=== PATIENT | male | born 1965 | race Caucasian/White ===

== ENCOUNTER 2020-07-14 04:35 | Emergency (ER) | payer OTHER, SELFPAY ==
--- NOTE | ~2020-07-14 | CT_ITS ---
EXAMINATION: CTA abdomen pelvis DATE: 07/14/2020 05:56 INDICATION: Left abdominal pain radiating to the back. TECHNIQUE: Computed tomographic angiography (CTA) of the abdomen and pelvis was performed with 100 mL Omnipaque-350 intravenous contrast. Automated exposure control and iterative reconstruction techniqu e were employed. The dose-length product was 1368.90 mGy-cm. Maximum intensity projection 3D-reconstr uctions of the aorta and other arteries were constructed by the technologist on a separate workstatio n. COMPARISON: CT abdomen and pelvis 04/06/2019, 08/08/2018 FINDINGS: The visualized portions of the lung bases demonstrate mild atelectasis. No pleural effusion . The heart size is normal. No pericardial effusion. Calcifications in the liver and spleen are consi stent with old granulomatous disease. The gallbladder is distended. The pancreas and adrenal glands a re normal. There is a small focal area of cortical thinning in right kidney. There are cysts in the k idneys measuring up to 9 mm on the right. The prostate is mildly enlarged. There is diverticulosis of the colon without evidence of diverticulitis. There are no dilated loops of bowel. Again seen is a s mall area of old fat necrosis adjacent to the splenic flexure of the colon. The appendix is normal. T here are no pathologically enlarged lymph nodes. There is no free intraperitoneal fluid. There is mil d aortic atherosclerosis. No aneurysm or dissection. There is moderate stenosis of celiac axis second abdi to median arcuate ligament compression. There is no significant stenosis of superior mesenteric a rtery or inferior mesenteric artery or the renal arteries. There is mild thoracolumbar spondylosis. IMPRESSION: 1. Mild aortic atherosclerosis. No aneurysm or dissection. 2. Gallbladder distention again seen, which may be secondary to fasting. Reviewed, dictated and finalized at location B.
[2020-07-14 04:31] VITALS: BP 120/75; PULSE 72; RESP 18; TEMP 36.7; O2SAT 96
[2020-07-14 04:45] LABS: Basophils Absolute Auto 0.1 K/mm3 (0.0-0.1); Basophils Percent Auto 1.1 % (0.2-1.2); Eosinophils Absolute Auto 0.3 K/mm3 (0-0.3); Eosinophils Percent Auto 5.3 % (0-4.4); Hematocrit 44.2 % (42.0-52.0); Hemoglobin 15.1 g/dL (14.0-18.0); Immature Granulocyte Absolute 0.02 K/mm3 (0.00-0.031); Immature Granulocyte Percent A 0.4 % (0-0.5); Lymphocytes Absolute Auto 1.32 K/mm3 (0.9-3.2); Lymphocytes Percent Auto 23.3 % (18.3-44.2); Mean Corpuscular HGB Conc 34.2 g/dl (32-36); Mean Corpuscular Hemoglobin 30.4 pg (26-34); Mean Corpuscular Volume 89.1 fl (80-100); Mean Platelet Volume 10.1 fl (7.4-10.4); Monocytes Absolute Auto 0.5 K/mm3 (0.1-0.6); Neutrophils Absolute Auto 3.5 K/mm3 (1.3-6.7); Neutrophils Percent Auto 60.9 % (45.5-73.1); Platelet Count Result 180 k/mm3 (150-375); Red Blood Count 4.96 M/mm3 (4.6-6.20); White Blood Count 5.7 K/mm3 (4.5-10.0)
[2020-07-14 04:58] LABS: Anion Gap 6 mmol/L (8-16); Blood Urea Nitrogen 22 mg/dL (9-20); Calcium 9.2 mg/dL (8.4-10.2); Carbon Dioxide 25 mmol/L (22-30); Chloride 105 mmol/L (98-107); Estimated CRCL calculation 68 ml/min; Estimated Glomerular Filt Rate 57; Glucose 152 mg/dL (75-110); Sodium 136 mmol/L (137-145)
[2020-07-14 05:22] LABS: Add Urine Microscopic? NO; Appearance Urine Clear (Clear); Bilirubin Urine Negative (Negative); Blood Urine Negative (Negative); Color Urine Yellow (Yellow); Glucose Urine UA Negative (Negative); Ketones Urine Negative (Negative); Leukocyte Esterase Ur Negative LEU/UL (Negative); Nitrate Urine Negative (Negative); Protein Urine Negative (Negative); Urobilinogen Urine Negative mg/dL (<2.0)
[2020-07-14 05:27] LABS: Specific Grav Ur 1.031 (1.001-1.035)
[2020-07-14 05:30] LABS: Lipase 510 U/L (23-300)
[2020-07-14 05:31] LABS: Lactic Acid Reflex 1.2 mmol/L (0.7-2.1)
--- NOTE | 2020-07-14 06:04 | ED.ABDPAIN ---
HPI - Abdominal Pain General Chief Complaint: Abdominal Pain Stated Complaint: abd pain Time Seen by Provider: 07/14/20 04:43 History of Present Illness HPI narrative: Patient is a 55-year-old male who presents ER with sudden onset abdominal pain. Began yesterday evening is persisted through this morning. Improved significantly after receiving fentanyl by EMS. Reports this occurs to him about 3-4 times a year. It is usually followed by bloody bowel movement. He has not had a bloody bowel movement this time. He has had colonoscopies without discovery of what is causing these issues. No association with eating or drinking. Pain is left-sided and radiates to his back. Does not feel similar to previous kidney stones. Related Data Allergies Allergy/AdvReac Type Severity Reaction Status Date / Time tramadol Allergy Intermediate Palpitation Verified 07/14/20 04:37 s celecoxib AdvReac Intermediate Hallucinati Verified 07/14/20 04:37 ng lisinopril AdvReac Intermediate Hallucinati Verified 07/14/20 04:37 ng Review of Systems Review of Systems: All systems reviewed & are unremarkable except as noted in HPI and below Constitutional: Constitutional: Denies chills, Denies fever(s) and Denies weakness Cardiovascular: Cardiovascular: Denies chest pain and Denies radiating jaw, neck or arm pain Gastrointestinal: Gastrointestinal: Reports abdominal pain, Denies constipation, Denies diarrhea, Denies nausea and Denies vomiting Genitourinary: Genitourinary: Denies dysuria and Denies urinary frequency [facility] Past Medical History Medical History (Updated 07/14/20 @ 06:55 by Heriberto Shrestha MD) Chronic headaches HTN (hypertension) Kidney stones, calcium oxalate Neuroma digital nerve Numbness and tingling in both hands (~1998) Obesity GABRIELA on CPAP Thoracic spondylosis (~2017) Surgical History Surgical History Carpal tunnel syndrome of left wrist Carpal tunnel syndrome of right wrist Social History Social History Smoking status: Former smoker Smoking end date: 11/21/12 Alcohol intake: never Substance use: unknown 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 HEAD: Normocephalic, atraumatic. ENT: Mucous membranes moist. CHEST: Clear to auscultation. No respiratory distress. HEART: Regular rate and rhythm. Normal peripheral pulses. ABDOMEN: Soft, mildly tender to left upper quadrant of abdomen without guarding, nondistended, normal active bowel sounds. EXTREMITIES: Normal range of motion. No edema. SKIN: Warm, dry, no rash. NEURO: Alert and oriented x3. Course Course Emergency Course: Patient informed of results. Pain improving. Will send home with some Percocet as well. Vital Signs Vital signs: Vital Signs Temperature 98.0 F 07/14/20 04:31 Pulse Rate 72 07/14/20 04:31 Respiratory Rate 18 07/14/20 04:31 Blood Pressure 120/75 07/14/20 04:31 Pulse Oximetry 96 07/14/20 04:31 Temperature 98.0 F 07/14/20 04:31 Pulse Rate 72 07/14/20 04:31 Respiratory Rate 18 07/14/20 04:31 Blood Pressure 120/75 07/14/20 04:31 Pulse Oximetry 96 07/14/20 04:31 MDM - Abdominal Pain Lab Data Result diagrams: 07/14/20 04:40 07/14/20 04:40 Labs: Lab Results 07/14/20 07/14/20 07/14/20 Range/Units 04:40 04:40 05:02 WBC 5.7 (4.5-10.0) K/mm3 RBC 4.96 (4.6-6.20) M/mm3 Hgb 15.1 (14.0-18.0) g/dL Hct 44.2 (42.0-52.0) % MCV 89.1 (80-100) fl MCH 30.4 (26-34) pg MCHC 34.2 (32-36) g/dl RDW 12.0 (11.5-14.5) % Plt Count 180 (150-375) k/mm3 MPV 10.1 (7.4-10.4) fl Immature Gran % (Auto) 0
[2020-07-14 07:06] VITALS: BP 108/61; PULSE 59; RESP 18; O2SAT 96
== END 2020-07-14 07:07 | disposition home or self-care (01) ==
PROVIDERS: Emergency Provider Emergency Medicine; PCP Family Medicine
DX: K63.89 Other specified diseases of intestine (principal); I10 Essential (primary) hypertension; Z87.442 Personal history of urinary calculi; G47.33 Obstructive sleep apnea (adult) (pediatric); E66.9 Obesity, unspecified; Z68.39 Body mass index [BMI] 39.0-39.9, adult; Z87.891 Personal history of nicotine dependence
CPT/HCPCS: 36415; 74174; 80048; 81003; 83605; 83690; 85025; 99284; Q9967

== ENCOUNTER 2020-09-12 14:37 | Outpatient (CLI) | payer OTHER, SELFPAY ==
--- NOTE | 2020-09-12 14:38 | ECG_ITS ---
Measurements Intervals [place] Rate: 63 P: 37 MA: 156 QRS: -23 QRSD: 98 T: 3 QT: 397 QTc: 407 Interpretive Statements SINUS RHYTHM INFERIOR INFARCT, AGE INDETERMINATE BASELINE WANDER- V4 ABNORMAL ECG Electronically Signed On 09-12-2020 14:56:23 CDT by Terence Hernandez D.O.
== END 2020-09-12 14:38 | disposition home or self-care (01) ==
PROVIDERS: PCP Family Medicine; Visit Provider Orthopaedic Surgery
DX: Z01.818 Encounter for other preprocedural examination (principal); I10 Essential (primary) hypertension; R94.31 Abnormal electrocardiogram [ECG] [EKG]
CPT/HCPCS: 93005

== ENCOUNTER 2020-09-16 01:07 | Outpatient (CLI) | payer OTHER, SELFPAY ==
[2020-09-16 19:05] LABS: SARS-CoV-2 RNA PCR Negative
== END 2020-09-16 01:08 | disposition home or self-care (01) ==
LOC: ANHCOVIDDT 01:07
PROVIDERS: PCP Family Medicine; Visit Provider Orthopaedic Surgery
DX: Z01.812 Encounter for preprocedural laboratory examination (principal); Z20.828 Contact with and (suspected) exposure to other viral communicable diseases
CPT/HCPCS: 87635; C9803; U0003

== ENCOUNTER 2020-09-18 00:52 | Day surgery (SDC) | payer OTHER, SELFPAY ==
[2020-09-05 10:19] VITALS: BMI 36.5
--- NOTE | 2020-09-17 12:45 | PM.IMHP ---
H&P: HPI History of Present Illness Date/Time: 09/17/20 12:45 Chief complaint: Right foot third IMS neuroma Narrative: Terry Christianson is a 55 year old male with right foot pain for the past year. Pain in the forefoot radiating into the 3rd and 4th toes. Worse with activity, better when he is off of it. He has had previous injections as well as activity modification and shoe wear modifications. He presents now for operative treatment. Review of Systems Constitutional: Constitutional: Denies fever(s) Eyes: Eyes: Denies blurry vision ENT: Reports Normal hearing present Cardiovascular: Cardiovascular: Denies chest pain and Denies dyspnea Respiratory: Respiratory: Denies dyspnea and Denies wheezing Gastrointestinal: Gastrointestinal: Denies abdominal pain Genitourinary: Genitourinary: Denies urinary urgency Musculoskeletal: Musculoskeletal: Reports as per HPI and Denies numbness Integumentary/Breasts: Skin/Breast: Denies changing lesions and Denies sores Neurologic: Reports Normal hearing present, Denies behavioral changes, Denies confusion, Denies numbness and Denies convulsions Psychiatric: Psychiatric: Denies behavioral changes, Denies confusion and Denies hallucinations Endocrine: Endocrine: Denies heat intolerance Hematologic/Lymphatic: Hematologic/Lymphatic: Denies easy bleeding Allergic/Immunologic: Allergic/Immunologic: Denies wheezing PMFSH Past Medical History Medical History Chronic headaches HTN (hypertension) Kidney stones, calcium oxalate Neuroma digital nerve Numbness and tingling in both hands (~1998) Obesity GABRIELA on CPAP Thoracic spondylosis (~2017) Surgical History Surgical History Carpal tunnel syndrome of left wrist Carpal tunnel syndrome of right wrist H/O cystoscopy with a placement of a stent H/O hernia repair umbilical and groin H/O right knee surgery Family History Family History Father Hypertension Family history of diabetes mellitus in first degree relative Family history of coronary artery disease Family history of elevated blood lipids Family history of congestive heart failure Diabetes mellitus Mother Cerebrovascular accident Family history of pancreatic cancer Family history of primary malignant neoplasm of liver Family history of thyroid disease Sibling Family history of thyroid disease Family history of elevated blood lipids Family history of diabetes mellitus in first degree relative Sibling Diabetes mellitus Sibling Diabetes mellitus Other Family history of alcoholism Family history of arthritis Social History Social History Smoking packs per day: 1 Smoking cigarettes per day: 20.0 Years smoked: 20 Smoking pack-years: 20.00 Smoking status: Former smoker Tobacco type: cigarettes Smoking end date: 11/21/12 Additional smoking assessment comments: QUIT 15 YEARS AGO Alcohol intake: never Substance use: unknown 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 Gender identity (if verbalized by the patient): Male Spiritual care concerns: No Meds Home Medications and Allergies Home Medications Medication Instructions Recorded Confirmed Type trazodone 100 mg tablet 200 mg PO HS #180 tablet 05/21/20 09/05/20 Rx nebivolol 5 mg tablet 5 mg PO DAILY #120 tablet 08/05/20 09/05/20 Rx dextroamphetamine-amphetamine 10 10 mg PO QNOON #30 tablet 09/01/20 09/05/20 Rx mg tablet dextroamphetamine-amphetamine ER 30 mg PO QAM #30 cap 09/01/20 09/05/20 Rx 30 mg 24hr capsule,extend release Vitamin B-12 1 tablet PO DAILY 09/05/20 09/05/20 History Vitamin B-6 1 tablet PO DAILY 09/05/20 09/05/20 History Vitamin D3 1 tablet PO DAILY 09/05/20 09/05/20 History vitamin A 1 tablet PO DAILY 09/05/20
[2020-09-18] VITALS (9 sets, daily range): BP systolic 96–126; BP diastolic 60–82; PULSE 48–79; RESP 14–18; TEMP 36.4–36.7; O2SAT 95–100
[2020-09-18] MEDS: LACTATED RINGERS 1,000 ML 30 ML IV CONT ×2 (06:50→08:23)
--- NOTE | 2020-09-18 06:51 | WPDANESEPPF ---
Anes - Initial Pre Proc Eval Procedure: Operation Date: 09/18/20 07:30 Proposed Procedures p Excision Neuroma Right Foot Third Intermetatarsal Space - Denis Beasley MD Date/Time: 09/18/20 06:51 Surgeon: Denis Beasley MD Pre Op Diagnosis: Right foot third IMS neuroma Patient Data Age: 55 Gender: M Height: 5 ft 8 in Weight: 108.86 kg Allergies Allergy/AdvReac Type Severity Reaction Status Date / Time tramadol Allergy Intermediate Palpitation Verified 09/05/20 10:20 s celecoxib AdvReac Intermediate Hallucinati Verified 09/05/20 10:20 ng lisinopril AdvReac Intermediate Hallucinati Verified 09/05/20 10:20 ng Home Medications Medication Instructions Recorded Confirmed Type trazodone 100 mg tablet 200 mg PO HS #180 tablet 05/21/20 09/05/20 Rx nebivolol 5 mg tablet 5 mg PO DAILY #120 tablet 08/05/20 09/05/20 Rx dextroamphetamine-amphetamine 10 10 mg PO QNOON #30 tablet 09/01/20 09/05/20 Rx mg tablet dextroamphetamine-amphetamine ER 30 mg PO QAM #30 cap 09/01/20 09/05/20 Rx 30 mg 24hr capsule,extend release Vitamin B-12 1 tablet PO DAILY 09/05/20 09/05/20 History Vitamin B-6 1 tablet PO DAILY 09/05/20 09/05/20 History Vitamin D3 1 tablet PO DAILY 09/05/20 09/05/20 History vitamin A 1 tablet PO DAILY 09/05/20 09/05/20 History zinc 1 tablet PO DAILY 09/05/20 09/05/20 History Patient hx anesthesia problems: none Family hx anesthesia problems: none [facility] Past Medical History Medical History Chronic headaches HTN (hypertension) Kidney stones, calcium oxalate Neuroma digital nerve Numbness and tingling in both hands (~1998) Obesity GABRIELA on CPAP Thoracic spondylosis (~2017) Surgical History Surgical History Carpal tunnel syndrome of left wrist Carpal tunnel syndrome of right wrist H/O cystoscopy with a placement of a stent H/O hernia repair umbilical and groin H/O right knee surgery Family History Family History Father Hypertension Family history of diabetes mellitus in first degree relative Family history of coronary artery disease Family history of elevated blood lipids Family history of congestive heart failure Diabetes mellitus Mother Cerebrovascular accident Family history of pancreatic cancer Family history of primary malignant neoplasm of liver Family history of thyroid disease Sibling Family history of thyroid disease Family history of elevated blood lipids Family history of diabetes mellitus in first degree relative Sibling Diabetes mellitus Sibling Diabetes mellitus Other Family history of alcoholism Family history of arthritis Social History Social History Smoking packs per day: 1 Smoking cigarettes per day: 20.0 Years smoked: 20 Smoking pack-years: 20.00 Smoking status: Former smoker Tobacco type: cigarettes Smoking end date: 11/21/12 Additional smoking assessment comments: QUIT 15 YEARS AGO Alcohol intake: never Substance use: unknown 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 Questions were solicited and answers provided to the satisfaction of the patient/family/POA.
--- NOTE | 2020-09-18 06:59 | WPDHPUPDATE1 ---
History and Physical Update Update Date/Time: 09/18/20 06:59 History and Physical has been reviewed, including an updated exam of the patient. There are NO changes in the patient's condition. Covid test negative. Risks, benefits, and alternatives have been discussed and questions answered. Patient agrees to proceed with procedure.
[2020-09-18] MEDS: ACETAMINOPHEN 500 MG TABLET 1000 MG PO (07:00)
[2020-09-18] MEDS: ceFAZolin 2 GM/D5W 50 ML 2 GM/50 ML BAG IVPB (07:28)
[2020-09-18] MEDS: BUPIVACAINE HCL 0.5% PF 30 ML VIAL INFILTRATE (07:56)
--- NOTE | 2020-09-18 08:47 | P.OP_ITS ---
Procedure Note - Detailed Date of procedure: 09/18/20 Pre-op diagnosis: Right foot third IMS neuroma Post-op diagnosis: same Procedure performed: Excision of right foot 3rd intermetatarsal space neuroma Description of procedure: Indications: Patient is a 55-year-old gentleman with right forefoot pain. 3rd intermetatarsal space neuroma confirm on exam and with cortisone injection. Patient has failed conservative treatment presents now for operative treatment. What was done: Patient identified in the preoperative holding. Informed consent given. Operative extremity marked. Patient received intravenous antibiotics. Patient brought to the operating room where underwent general anesthetic by anesthesia team. Positioned supine on operating room table. Time-out performed confirming the patient, site of the surgery and the plan. Right foot prepped draped usual sterile surgical fashion using a ChloraPrep skin solution. Foot and ankle exsanguinated and calf tourniquet inflated to 225 mmHg. Dorsal longitudinal incision made in the 3rd webspace of the right foot with a 15 blade knife. Hemostasis controlled electrocautery. Fascia and the intermetatarsal ligament incised in line with the skin incision. Retractors placed and a large neuroma was able to be identified in the intermetatarsal space. This was traced out distally and released sharply the branch to the 3rd and 4th toe. This was then dissected out proximally back into the intermetatarsal musculature. This was then sharply transected. Neuroma was passed off as specimen. Wound thoroughly irrigated antibiotic solution. No other abnormal neural elements noted. Bleeding points coagulated after release of the tourniquet. Closure with 3 0 Monocryl interrupted suture in layers. Skin repaired with 4 O nylon running suture. Sterile dressing applied. The patient was then woken from anesthesia, extubated and taken to the recovery room in stable condition. All sponge, needle, instrument counts were correct at the end of the case. Anesthesia: GLMA Surgeon: Denis Beasley MD Organ Assembler: 1st laboratory chemical assistant Estimated blood loss (mL): 10 Tourniquet time (min): 13 Drains: No Packing: No Pathology: yes ( 3rd intermetatarsal space neuroma right foot) Complications: None Condition: stable Disposition: PACU
[2020-09-18] MEDS: fentaNYL CITRATE INJ (*CRX) 100 MCG/2 ML VIAL 25 MCG IV PUSH (09:41)
[2020-09-18] MEDS: oxyCODONE HCL (*CRX) 5 MG TAB IR PO (10:10)
== END 2020-09-18 10:43 | disposition home or self-care (01) ==
PROVIDERS: PCP Family Medicine; Visit Provider Orthopaedic Surgery
PROC: (CPT 28080; principal; 2020-09-18 07:30)
DX: G57.61 Lesion of plantar nerve, right lower limb (principal); I10 Essential (primary) hypertension; G47.33 Obstructive sleep apnea (adult) (pediatric); M47.814 Spondylosis without myelopathy or radiculopathy, thoracic region; Z87.891 Personal history of nicotine dependence; E66.9 Obesity, unspecified; Z68.38 Body mass index [BMI] 38.0-38.9, adult
CPT/HCPCS: 28080; 88304; A9270; J0690; J1100; J2250; J2405; J2704; J3010; J7120

== ENCOUNTER 2021-03-16 15:32 | Emergency (ER) | payer OTHER, SELFPAY ==
--- NOTE | ~2021-03-16 | XR_ITS ---
XR knee RT 3V 03/16/2021 15:53 Indication: Right knee pain Procedure: 3 views right knee Comparison: 11/11/2017 Findings: Mild osteoarthritis of the right knee. No fracture, subluxation or dislocation. No signific ant joint effusion. No foreign bodies. Impression: 1: Mild osteoarthritis of the right knee. Reviewed, dictated and finalized at location B. Impression: 1: Mild osteoarthritis of the right knee.
[2021-03-16 15:40] VITALS: BP 151/89; PULSE 66; RESP 20; TEMP 36.8; O2SAT 100
--- NOTE | 2021-03-16 15:55 | ED.LOWEXIN ---
HPI - Extremity Injury (Lower) General Chief Complaint: Extremity Injury, Lower Stated Complaint: rt knee injury Source: patient and RN notes reviewed Limitations: no limitations History of Present Illness HPI Narrative: The patient ,on several medications, presents with right knee pain. Patient states he slipped and went to his knees while working on a roof striking the medial aspect of the joint. He complains of mild to moderate pain is worse with motion, better with rest, located medially. He has a prior history of cleaning out of the knee for arthritis over 10 years ago in the past. No lockup, giveaway; yet he reports a prior injury where he slipped and fell off a ladder weeks ago striking the same knee. Patient advised to follow-up with prior orthopedist, and he replies he does not have an appointment till next month. Related Data Home Medications Medication Instructions Recorded Confirmed Vitamin B-12 1 tablet PO DAILY 09/05/20 03/16/21 Vitamin B-6 1 tablet PO DAILY 09/05/20 03/16/21 Vitamin D3 1 tablet PO DAILY 09/05/20 02/27/21 vitamin A 1 tablet PO DAILY 09/05/20 03/16/21 zinc 1 tablet PO DAILY 09/05/20 02/27/21 Allergies Allergy/AdvReac Type Severity Reaction Status Date / Time tramadol Allergy Intermediate Palpitation Verified 02/27/21 09:38 s celecoxib AdvReac Intermediate Hallucinati Verified 02/27/21 09:38 ng lisinopril AdvReac Intermediate Hallucinati Verified 02/27/21 09:38 ng Review of Systems Review of Systems: Narrative: General/Constitutional: No weight loss,fever Eyes: N0: Redness,discharge Ears/Nose/Throat: No: Epistaxis,ear discharge Respiratory: Denies: Hemoptysis Gastrointestinal: No Vomiting, Bleeding-rectal Skin: No Lumps, eruption Neurologic: No Focal Weakness,Sz Hematologic: Denies: Petechiae/Purpura Psychiatric: No: Suicida ideationl All Other Systems: Reviewed and Negative [facility] Past Medical History Medical History (Updated 03/16/21 @ 16:39 by Joni Rodney MD) BMI 39.0-39.9,adult Chronic headaches HTN (hypertension) Kidney stones, calcium oxalate Neuroma digital nerve Numbness and tingling in both hands (~1998) Obesity GABRIELA on CPAP GABRIELA treated with BiPAP Plantar fasciitis Plantar fasciitis of left foot Thoracic spondylosis (~2018) Surgical History Surgical History Carpal tunnel syndrome of left wrist Carpal tunnel syndrome of right wrist H/O cystoscopy with a placement of a stent H/O hernia repair umbilical and groin H/O right knee surgery Family History Family History Father Hypertension Family history of diabetes mellitus in first degree relative Family history of coronary artery disease Family history of elevated blood lipids Family history of congestive heart failure Diabetes mellitus Mother Cerebrovascular accident Family history of pancreatic cancer Family history of primary malignant neoplasm of liver Family history of thyroid disease Sibling Family history of thyroid disease Family history of elevated blood lipids Family history of diabetes mellitus in first degree relative Sibling Diabetes mellitus Sibling Diabetes mellitus Other Family history of alcoholism Family history of arthritis Social History Social History Smoking packs per day: 1 Smoking cigarettes per day: 20.0 Years smoked: 20 Smoking pack-years: 20.00 Tobacco type: cigarettes Smoking end date: 11/21/12 Additional smoking assessment comments: QUIT 15 YEARS AGO Alcohol intake: never Substance use: unknown 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 There is no relevant
== END 2021-03-16 16:31 | disposition home or self-care (01) ==
PROVIDERS: Emergency Provider Emergency Medicine; PCP Family Medicine
DX: S89.91XA Unspecified injury of right lower leg, initial encounter (principal); W18.00XA Striking against unspecified object with subsequent fall, initial encounter; I10 Essential (primary) hypertension; G47.33 Obstructive sleep apnea (adult) (pediatric); M47.814 Spondylosis without myelopathy or radiculopathy, thoracic region
CPT/HCPCS: 73562; 99213; G0463

== ENCOUNTER → 2021-04-18 03:47 | Outpatient (CLI) | payer OTHER, SELFPAY ==
[2021-04-18 19:46] LABS: SARS-CoV-2 RNA PCR Negative
== END ==
PROVIDERS: PCP Family Medicine; Visit Provider Orthopaedic Surgery
DX: Z01.812 Encounter for preprocedural laboratory examination (principal); Z20.822 Contact with and (suspected) exposure to COVID-19
CPT/HCPCS: C9803; U0003; U0005

== ENCOUNTER 2021-04-21 01:38 | Day surgery (SDC) | payer OTHER, SELFPAY ==
[2021-04-09 13:21] VITALS: BMI 33.5
[2021-04-21] VITALS (11 sets, daily range): BP systolic 102–153; BP diastolic 68–88; PULSE 48–94; RESP 10–20; TEMP 36.2–36.7; O2SAT 96–100
--- NOTE | 2021-04-21 07:25 | WPDHPUPDATE1 ---
History and Physical Update Update Date/Time: 04/21/21 07:25 History and Physical has been reviewed, including an updated exam of the patient. There are NO changes in the patient's condition. Risks, benefits, and alternatives have been discussed and questions answered. Patient agrees to proceed with procedure.
[2021-04-21] MEDS: ACETAMINOPHEN 500 MG TABLET 1000 MG PO (09:24)
--- NOTE | 2021-04-21 09:27 | WPDANESEPPF ---
Anes - Initial Pre Proc Eval Procedure: Operation Date: 04/21/21 11:00 Proposed Procedures p Right Knee Arthroscopy, Proceed As Indicated - Seth Balbuena MD Date/Time: 04/21/21 09:27 Surgeon: Seth Balbuena MD Pre Op Diagnosis: Right Medial Meniscus Tear Patient Data Age: 56 Gender: M Height: 5 ft 8 in Weight: 100 kg Allergies Allergy/AdvReac Type Severity Reaction Status Date / Time tramadol Allergy Intermediate Palpitation Verified 04/21/21 09:16 s celecoxib AdvReac Intermediate Hallucinati Verified 04/21/21 09:16 ng lisinopril AdvReac Intermediate Hallucinati Verified 04/21/21 09:16 ng Home Medications Medication Instructions Recorded Confirmed Type clonazepam 1 mg tablet 1 mg PO QHS #30 tablet 02/27/21 04/21/21 Rx diclofenac sodium 50 mg 50 mg PO BID #60 tablet 03/23/21 04/21/21 Rx tablet,delayed release hydrocodone 5 mg-acetaminophen 325 1 tablet PO Q6H PRN #30 tablet 03/31/21 04/21/21 Rx mg tablet dextroamphetamine-amphetamine 10 10 mg PO QNOON #30 tablet 04/08/21 04/21/21 Rx mg tablet dextroamphetamine-amphetamine ER 30 mg PO QAM #30 cap 04/08/21 04/21/21 Rx 30 mg 24hr capsule,extend release multivitamin [Multi-Vitamin] 1 tablet PO DAILY 04/09/21 04/21/21 History nebivolol [Bystolic] 5 mg PO QAM 04/09/21 04/21/21 History Patient hx anesthesia problems: none Family hx anesthesia problems: none [facility] Past Medical History Medical History BMI 36.0-36.9,adult BMI 37.0-37.9, adult BMI 39.0-39.9,adult Chronic headaches HTN (hypertension) Kidney stones, calcium oxalate Neuroma digital nerve Numbness and tingling in both hands (~1998) Obesity GABRIELA on CPAP GABRIELA treated with BiPAP Plantar fasciitis Plantar fasciitis of left foot Thoracic spondylosis (~2017) Surgical History Surgical History Carpal tunnel syndrome of left wrist Carpal tunnel syndrome of right wrist H/O cystoscopy with a placement of a stent H/O hernia repair umbilical and groin H/O right knee surgery Family History Family History Father Hypertension Family history of diabetes mellitus in first degree relative Family history of coronary artery disease Family history of elevated blood lipids Family history of congestive heart failure Diabetes mellitus Mother Cerebrovascular accident Family history of pancreatic cancer Family history of primary malignant neoplasm of liver Family history of thyroid disease Sibling Family history of thyroid disease Family history of elevated blood lipids Family history of diabetes mellitus in first degree relative Sibling Diabetes mellitus Sibling Diabetes mellitus Other Family history of alcoholism Family history of arthritis Social History Social History Smoking packs per day: 1 Smoking cigarettes per day: 20.0 Years smoked: 20 Smoking pack-years: 20.00 Smoking status: Former smoker Tobacco type: cigarettes Smoking end date: 11/21/12 Additional smoking assessment comments: STATES QUIT 2004 Alcohol intake: never Substance use: never Substance use type: does not use Living arrangements: with family 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
[2021-04-21] MEDS: LACTATED RINGERS 1,000 ML 30 ML IV CONT ×2 (09:34→12:16)
[2021-04-21] MEDS: ceFAZolin 2 GM/D5W 50 ML 2 GM/50 ML BAG IVPB (10:55)
[2021-04-21] MEDS: BUPIVACAINE HCL 0.5% PF 30 ML VIAL INFILTRATE (11:17)
--- NOTE | 2021-04-21 12:12 | PM.PROC ---
Procedure Note - Detailed Date of procedure: 04/21/21 Pre-op diagnosis: Right Medial Meniscus Tear Post-op diagnosis: other (medial meniscus tear, lateral meniscus tear, chondromalacia, synovitis) Procedure performed: RIGHT KNEE SCOPE WITH PARTIAL MEDIAL MENISCECTOMY AND MINOR SYNOVECTOMY Description of procedure: PATIENT WAS TAKEN TO THE OR. THE RIGHT LEG WAS PREPPED AND DRAPED STERILE. TROCARS WERE PLACED IN THE USUAL FASHION. CAMERA WAS INTRODUCED. THERE WAS CHONDROMALACIA TO THE PATELLA FEMORAL JOINT. THERE WAS A LOT OF SYNOVITIS IN HOFFA'S SYNOVIUM. THE MEDIAL COMPARTMENT SHOWED CHONDROMALACIA TO THE MEDIAL FEMORAL CONDYLE. A SHAVER WAS USED TO PREFORM A CHONDROPLASTY. THERE WAS A COMPLEX MEDIAL MENISCUS TEAR. THE TEAR EXTENDED FROM THE MENISCAL ROOT TO THE POSTERIOR HORN MAIN BODY. THE TEAR WAS RESECTED WITH A BITER AND A SHAVER DOWN TO A SMOOTH BASE. ABOUT 25% OF THE MENISCUS WAS REMOVED. THE ACL WAS INTACT. THE LATERAL MENISCUS WAS NOT TORN. THE LAT COMPARTMENT HAD NO SIGNIFICANT CHONDROMALACIA. THE PATELLO FEMORAL JOINT UNDERWENT CHONDROPLASTY. THERE WAS GRADE 2 CHONDROMALACIA IN PART OF THE TROCHLEA AND PART OF THE PATELLA. SYNOVECTOMY WAS PREFORMED IN HOFFA'S SYNOVIUM. THE PATELLA TRACKED NORMALLY WITHIN THE TROCHLEA. THE WOUNDS WERE APPROXIMATED WITH 4.0 NYLON. STERILE DRESSING WAS APPLIED. PATIENT WAS EXTUBATED. Anesthesia: GLMA Surgeon: Seth Balbuena MD Estimated blood loss (mL): 5 Complications: No immediate complications Condition: stable Disposition: PACU
[2021-04-21] MEDS: fentaNYL CITRATE INJ (*CRX) 100 MCG/2 ML VIAL 25 MCG IV PUSH ×4 (13:16→13:34)
[2021-04-21] MEDS: oxyCODONE HCL (*CRX) 5 MG TAB IR PO (14:01)
== END 2021-04-21 14:50 | disposition home or self-care (01) ==
PROVIDERS: PCP Family Medicine; Visit Provider Orthopaedic Surgery
PROC: (CPT 29870; principal; 2021-04-21 11:00)
DX: M23.321 Other meniscus derangements, posterior horn of medial meniscus, right knee (principal); M94.261 Chondromalacia, right knee; M65.861 Other synovitis and tenosynovitis, right lower leg; I10 Essential (primary) hypertension; G47.33 Obstructive sleep apnea (adult) (pediatric); M47.814 Spondylosis without myelopathy or radiculopathy, thoracic region; E66.9 Obesity, unspecified; Z68.36 Body mass index [BMI] 36.0-36.9, adult; Z87.891 Personal history of nicotine dependence
CPT/HCPCS: 29881; A9270; C9803; J0690; J1100; J2250; J2405; J2704; J3010; J7120; U0003; U0005

== ENCOUNTER → 2021-08-28 14:18 | Outpatient (CLI) | payer OTHER, SELFPAY ==
--- NOTE | ~2021-08-28 | MR_ITS ---
EXAMINATION: MR knee RT wo con DATE: 08/28/2021 15:22 INDICATION: Right knee pain TECHNIQUE: Magnetic resonance imaging (MRI) of the right knee was performed without intravenous contr ast. Sequences included coronal PD-weighted FSE, coronal PD-weighted FS FSE, sagittal T2-weighted FS E, sagittal PD-weighted FS FSE and axial PD weighted fat saturated FSE. COMPARISON: None. FINDINGS: Medial compartment: Complex tear of the medial meniscus with macerated appearance of the medial extruded meniscal body ex tending posteriorly to involve the inner third of the posterior horn. Deep chondral ulceration involv ing the central, anterior and medial aspect of the medial tibial plateau with mild underlying marrow edema and low signal intensity eburnation. Additional deep chondral ulceration throughout the medial two thirds of the anterior to central weightbearing medial femoral condyle where there is scattered m ild cortical irregularity and minimal subarticular edema. Lateral compartment: Lateral meniscus is normal. Articular cartilage is normal. Patellofemoral compartment: Partial-thickness cartilage loss at the medial patellar facet in place approaching full-thickness wit h deep chondral fissuring extending across the patellar apical ridge. Cartilage at the lateral patell ar facet and at the trochlea appears relatively preserved. Ligaments and tendons: Anterior and posterior cruciate ligaments are normal. The medial collateral ligament and fibular daniel ateral ligament complex are normal. Small enthesophytes and mild tendinopathy at the distal quadricep s tendon. Patellar tendon is normal. The visualized medial and lateral hamstring tendons as well as t he iliotibial band are normal. Fluid: Small right knee joint effusion with suprapatellar plical band and mild synovitis at the suprapatella r pouch. No loose osteochondral bodies identified. Osseous/other: Bone alignment is normal. No fracture or pathologic marrow replacing process. There is scarring along with a few foci of susceptibility artifact at the medial and lateral sides of Hoffa's fat pad likely representing axis portals for prior arthroscopy. Correlate with surgical history. IMPRESSION: 1. Medial extrusion and complex tear of the medial meniscal body which has a macerated appearance. 2. 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 3. Mild patellofemoral osteoarthritis with moderate to high-grade chondromalacia at the medial facet and apical ridge. 4. Small right knee joint effusion. 5. Mild distal quadriceps tendinopathy. Reviewed, dictated and finalized at location A. IMPRESSION: 1. Medial extrusion and complex tear of the medial meniscal body which has a ma cerated appearance. 2. Moderate osteoarthritis with extensive high-grade chondral malacia in the me dial compartment. 3. Mild patellofemoral osteoarthritis with moderate to high-grade chondromalaci a at the medial facet and apical ridge. 4. Small right knee joint effusion. 5. Mild distal quadriceps tendinopathy.
== END ==
PROVIDERS: PCP Family Medicine; Visit Provider Orthopaedic Surgery
DX: M25.561 Pain in right knee (principal); S83.231A Complex tear of medial meniscus, current injury, right knee, initial encounter; M17.11 Unilateral primary osteoarthritis, right knee; M22.41 Chondromalacia patellae, right knee; M25.461 Effusion, right knee; M76.891 Other specified enthesopathies of right lower limb, excluding foot
CPT/HCPCS: 73721

== ENCOUNTER 2021-10-14 00:56 | Day surgery (SDC) | payer OTHER, SELFPAY ==
[2021-10-08 09:49] VITALS: BMI 36.5
--- NOTE | 2021-10-08 10:06 | PC.NURSE ---
Report to the Outpatient Waiting Room, entrance under the green pavilion located off [facility], at time 6:00 on date 10/14/21. OR Time: 7:30. - You and your visitor will be asked a series of questions to screen for COVID 19 for your protection. - A mask is required within the hospital. - Only one visitor is allowed at this time. Patient visitors will be guided where to wait when not with patient. Preoperative COVID Testing Requirements: No COVID Test needed if: (proof is required; if not received patient will have Rapid Test prior to entry) - Patient has received COVID Vaccine at least 14 days prior to procedure date or - Patient has positive COVID test result within last 90 days of surgery date. COVID Test needed if above criteria is not met If not COVID vaccinated a COVID test must be conducted within 72 hours of surgery and patient is asked to isolate self from time of testing until procedure. You will go to the [facility] for your COVID testing. The [facility] is located at the corner of [address] [facility]. You will only be called if COVID results are positive and your surgeon may reschedule your elective surgery date. Patients may have clear liquids (water, carbonated beverages, clear teas, apple juice) until 3 hours prior to surgery with a maximum of 20 ounces. - No food from midnight until time of surgery - Infants may have breast milk until 4 hours before surgery, infant formula 6 hours prior to surgery. - Children will be allowed to drink immediately following surgery. If applicable, please bring a bottle or sippy cup to assist with drinking. Juice, water, soda, and popsicles are readily available. For infants on formula, please bring formula the day of surgery. Pacifiers are allowed. Take the following medications with a SIP of water the morning of surgery: BYSTOLIC, ADDERALL Medications to discontinue per physician: VITAMINS/SUPPLEMENTS Date to take last dose: 10/10/21 Please no make-up, nail welsh, hairspray, perfume, deodorant, or body powder the day of surgery. No jewelry (including any body piercings) or valuables the day of surgery, leave them at home. Please take a shower or bath the night before, or the morning of, surgery with an antibacterial soap. Wear comfortable, loose fitting clothing. Children are encouraged to wear pajamas. HIBICLENS SHOWER X 3 DAYS - Jewelry must be removed prior to entering the operating room. Rings and piercings that are not removed may be cut off. - The hospital will not accept responsibility for valuables. - Please leave all valuables, including medications, at home the day of surgery. If you are going home after surgery, a licensed chain saw driver must drive you home. - NO public transportation without another adult. - We recommend that an adult stay with you for 24 hours following discharge. - We also recommend that you do not drive, make important decision, drink alcoholic beverages, or take any drugs that were not prescribed by your health care provider for at least 24 hours after your discharge time. For Pediatric surgeries, we recommend two adults accompany the child home (only one inside the building at this time). Follow any additional instructions given to you from your surgeon. Telephone instructions given to YOLETTE MOODY and asked if any additional questions and then verbalized understanding. Patient advised to call surgeon office or pre surgery nurse liaison [phone] if any additional questions.
[2021-10-14] VITALS (7 sets, daily range): BP systolic 110–139; BP diastolic 75–85; PULSE 65–86; RESP 14–22; TEMP 36.1–36.6; O2SAT 98–100
[2021-10-14] MEDS: ACETAMINOPHEN 500 MG TABLET 1000 MG PO (06:22)
--- NOTE | 2021-10-14 07:01 | WPDANESEPPF ---
Anes - Initial Pre Proc Eval Procedure: Operation Date: 10/14/21 07:30 Proposed Procedures p Right Knee Arthroscopy, Proceed As Indicated - Seth Balbuena MD Date/Time: 10/14/21 07:01 Surgeon: Seth Balbuena MD Pre Op Diagnosis: right knee medial meniscus tear Patient Data Age: 56 Gender: M Height: 1.73 m Weight: 110.4 kg Last Vital Signs Temp 36.6 C 10/14/21 06:49 Pulse 75 10/14/21 06:49 Resp 16 10/14/21 06:49 BP 119/75 10/14/21 06:49 Pulse Ox 99 10/14/21 06:49 Allergies Allergy/AdvReac Type Severity Reaction Status Date / Time celecoxib AdvReac Intermediate Hallucinati Verified 10/14/21 06:18 ng lisinopril AdvReac Intermediate Hallucinati Verified 10/14/21 06:18 ng Home Medications Medication Instructions Recorded Confirmed Type multivitamin 1 tablet PO DAILY 04/09/21 10/14/21 History nebivolol [Bystolic] 5 mg PO QAM 04/09/21 10/14/21 History dextroamphetamine-amphetamine 10 10 mg PO QNOON #30 tablet 09/17/21 10/14/21 Rx mg tablet dextroamphetamine-amphetamine ER 30 mg PO QAM #30 cap 09/17/21 10/14/21 Rx 30 mg 24hr capsule,extend release chlorhexidine gluconate 4 % 1 applic TOPICAL ONCE #237 ml 10/05/21 10/08/21 Rx topical liquid Patient hx anesthesia problems: none Family hx anesthesia problems: none Results Review: All pre-operative results and documents have been reviewed as part of the pre-operative evaluation. [facility] Past Medical History Medical History BMI 36.0-36.9,adult BMI 37.0-37.9, adult BMI 39.0-39.9,adult Chronic headaches HTN (hypertension) Kidney stones, calcium oxalate Lesion of skin of scalp Medial meniscus, posterior horn derangement Neuroma digital nerve Numbness and tingling in both hands (~1998) Obesity GABRIELA on CPAP GABRIELA treated with BiPAP Plantar fasciitis Plantar fasciitis of left foot Thoracic spondylosis (~2017) Surgical History Surgical History Carpal tunnel syndrome of left wrist Carpal tunnel syndrome of right wrist H/O cystoscopy with a placement of a stent H/O hernia repair umbilical and groin H/O right knee surgery Family History Family History Father Hypertension Family history of diabetes mellitus in first degree relative Family history of coronary artery disease Family history of elevated blood lipids Family history of congestive heart failure Diabetes mellitus Mother Cerebrovascular accident Family history of pancreatic cancer Family history of primary malignant neoplasm of liver Family history of thyroid disease Sibling Family history of thyroid disease Family history of elevated blood lipids Family history of diabetes mellitus in first degree relative Sibling Diabetes mellitus Sibling Diabetes mellitus Other Family history of alcoholism Family history of arthritis Social History Social History Smoking packs per day: 1 Smoking cigarettes per day: 20.0 Years smoked: 20 Smoking pack-years: 20.00 Smoking status: Former smoker Tobacco type: cigarettes Smoking end date: 11/21/05 Additional smoking assessment comments: [place] QUIT 2004 Alcohol intake: never Substance use: never Substance use type: does not use Living arrangements: with family 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
[2021-10-14] MEDS: LACTATED RINGERS 1,000 ML 30 ML IV CONT (07:04)
--- NOTE | 2021-10-14 07:21 | WPDHPUPDATE1 ---
History and Physical Update Update Date/Time: 10/14/21 07:21 History and Physical has been reviewed, including an updated exam of the patient. There are NO changes in the patient's condition. Risks, benefits, and alternatives have been discussed and questions answered. Patient agrees to proceed with procedure.
--- NOTE | 2021-10-14 07:24 | PM.IMHP ---
H&P: HPI History of Present Illness Date/Time: 10/14/21 07:24 RIGHT KNEE PAIN DUE TO MEDIAL MENISCUS TEAR. HE IS STILL IN PAIN. HE IS HERE FOR RIGHT KNEE SCOPE. Chief Complaint: RIGHT KNEE PAIN Review of Systems Review of Systems: All systems reviewed & are unremarkable except as noted in HPI and below [facility] Past Medical History Medical History BMI 36.0-36.9,adult BMI 37.0-37.9, adult BMI 39.0-39.9,adult Chronic headaches HTN (hypertension) Kidney stones, calcium oxalate Lesion of skin of scalp Medial meniscus, posterior horn derangement Neuroma digital nerve Numbness and tingling in both hands (~1998) Obesity GABRIELA on CPAP GABRIELA treated with BiPAP Plantar fasciitis Plantar fasciitis of left foot Thoracic spondylosis (~2017) Surgical History Surgical History Carpal tunnel syndrome of left wrist Carpal tunnel syndrome of right wrist H/O cystoscopy with a placement of a stent H/O hernia repair umbilical and groin H/O right knee surgery Family History Family History Father Hypertension Family history of diabetes mellitus in first degree relative Family history of coronary artery disease Family history of elevated blood lipids Family history of congestive heart failure Diabetes mellitus Mother Cerebrovascular accident Family history of pancreatic cancer Family history of primary malignant neoplasm of liver Family history of thyroid disease Sibling Family history of thyroid disease Family history of elevated blood lipids Family history of diabetes mellitus in first degree relative Sibling Diabetes mellitus Sibling Diabetes mellitus Other Family history of alcoholism Family history of arthritis Social History Social History Smoking packs per day: 1 Smoking cigarettes per day: 20.0 Years smoked: 20 Smoking pack-years: 20.00 Smoking status: Former smoker Tobacco type: cigarettes Smoking end date: 11/21/05 Additional smoking assessment comments: [place] QUIT 2004 Alcohol intake: never Substance use: never Substance use type: does not use Living arrangements: with family 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 Gender identity (if verbalized by the patient): Male Spiritual care concerns: No Meds Home Medications and Allergies Home Medications Medication Instructions Recorded Confirmed Type multivitamin 1 tablet PO DAILY 04/09/21 10/14/21 History nebivolol [Bystolic] 5 mg PO QAM 04/09/21 10/14/21 History dextroamphetamine-amphetamine 10 10 mg PO QNOON #30 tablet 09/17/21 10/14/21 Rx mg tablet dextroamphetamine-amphetamine ER 30 mg PO QAM #30 cap 09/17/21 10/14/21 Rx 30 mg 24hr capsule,extend release chlorhexidine gluconate 4 % 1 applic TOPICAL ONCE #237 ml 10/05/21 10/08/21 Rx topical liquid Allergies Allergy/AdvReac Type Severity Reaction Status Date / Time celecoxib AdvReac Intermediate Hallucinati Verified 10/14/21 06:18 ng lisinopril AdvReac Intermediate Hallucinati Verified 10/14/21 06:18 ng Vital Signs Vital Signs - 24 hr 10/14/21 06:49 Temperature 36.6 C Pulse Rate 75 Respiratory Rate 16 Blood Pressure 119/75 Pulse Oximetry 99 Exam Extrem: Right lower extremity: normal to inspection, full ROM, normal capillary refill, cyanosis and knee Details: normal to inspection, tenderness Location: of the medial joint line and of the lateral joint line, swelling, abnormal ROM Details: pain with active ROM during and pain with passive ROM during, knee ligament exam normal, Ramiro's Test Details: positive medially and laterally and positive medially and crepitus; no abrasions, no lacerations and no ecchymosis Left lower extremity: normal to inspection, normal cap
--- NOTE | 2021-10-14 07:27 | WPDHPUPDATE1 ---
History and Physical Update Update Date/Time: 10/14/21 07:27 History and Physical has been reviewed, including an updated exam of the patient. There are NO changes in the patient's condition. Risks, benefits, and alternatives have been discussed and questions answered. Patient agrees to proceed with procedure.
[2021-10-14] MEDS: ceFAZolin 2 GM/D5W 50 ML 2 GM/50 ML BAG IVPB (07:30)
[2021-10-14] MEDS: methylPREDNISolone ACETATE 80 MG/ML VIAL IM (08:02)
--- NOTE | 2021-10-14 08:27 | W.PM.PROC2 ---
Procedure Note - Detailed Date of Procedure 10/14/21 Pre-op Diagnosis right knee medial meniscus tear Post-op Diagnosis same Procedure Performed RIGHT KNEE SCOPE Surgeon Seth Balbuena MD Anesthesia general Description of Procedure PATIENT WAS TAKEN TO THE OR. RIGHT LEG WAS PREPPED AND DRAPED STERILE. TROCARS WERE PLACED IN THE USUAL FASHION. CAMERA WAS INTRODUCED. THERE WAS CHONDROMALACIA TO THE PATELLA FEMORAL JOINT. THERE WAS A LOT OF SYNOVITIS IN ALL COMPARTMENTS. THE MEDIAL COMPARTMENT SHOWED CHONDROMALACIA TO THE MEDIAL FEMORAL CONDYLE. A SHAVER WAS USED TO PREFORM A CHONDROPLASTY. THE MEDIAL PLATEAU HAD FULL THICKNESS CARTILAGE LOSS. MINIMAL CHONDROPLASTY WAS PREFORMED.THERE WAS A COMPLEX MEDIAL MENISCUS TEAR SEEN AROUND THE OLD RESECTED MENISCUS. THE TEAR WAS RESECTED WITH A BITER AND A SHAVER DOWN TO A SMOOTH BASE. ABOUT 20% OF THE MENISCUS WAS REMOVED. THE ACL WAS INTACT. THE LATERAL MENISCUS WAS NOT TORN. THE PATELLO FEMORAL JOINT UNDERWENT CHONDROPLASTY. THERE WAS GRADE 3 CHONDROMALACIA IN MOST OF THE TROCHLEA AND PART OF THE PATELLA. SYNOVECTOMY WAS PREFORMED IN THE SUPERIOR MEDIAL COMPARTMENT. THE WOUNDS WERE APPROXIMATED WITH 4.0 NYLON. STERILE DRESSING WAS APPLIED. PATIENT WAS EXTUBATED. Estimated Blood Loss 5 Complications No immediate complications Condition stable Disposition PACU
[2021-10-14] MEDS: fentaNYL CITRATE INJ (*CRX) 100 MCG/2 ML VIAL 25 MCG IV PUSH ×2 (08:45→08:56)
[2021-10-14] MEDS: oxyCODONE HCL (*CRX) 5 MG TAB IR PO (09:34)
--- NOTE | 2021-10-14 09:46 | W.PM.PROC2 ---
Procedure Note - Detailed Date of Procedure 10/14/21 Pre-op Diagnosis right knee medial meniscus tear and lateral meniscus tear Post-op Diagnosis same Procedure Performed RIGHT KNEE SCOPE Surgeon Seth Balbuena MD Anesthesia general Description of Procedure PATIENT WAS TAKEN TO THE OR. RIGHT LEG WAS PREPPED AND DRAPED STERILE. TROCARS WERE PLACED IN THE USUAL FASHION. CAMERA WAS INTRODUCED. THERE WAS CHONDROMALACIA TO THE PATELLA FEMORAL JOINT. THERE WAS A LOT OF SYNOVITIS IN ALL COMPARTMENTS. THE MEDIAL COMPARTMENT SHOWED CHONDROMALACIA TO THE MEDIAL FEMORAL CONDYLE. A SHAVER WAS USED TO PREFORM A CHONDROPLASTY. THERE WAS A COMPLEX MEDIAL MENISCUS TEAR. THE TEAR WAS RESECTED WITH A BITER AND A SHAVER DOWN TO A SMOOTH BASE. ABOUT 30% OF THE MENISCUS WAS REMOVED. THE ACL WAS INTACT. THERE WAS A LARGE OSTEOPHYTE IN THE NOTCH THAT WAS REMOVED. THE LATERAL MENISCUS WAS TORN AT THE ANTERIOR HORN AND MID SUBSTANCE THE TEAR WAS RESECTED. THE LAT COMPARTMENT HAD GRADE 2 CHONDROMALACIA AT THE LATERAL PLATEAU. CHONDROPLASTY WAS PREFORMED. A SYNOVECTOMY WAS PREFORMED WELL. THE PATELLO FEMORAL JOINT UNDERWENT CHONDROPLASTY. THERE WAS GRADE 3 CHONDROMALACIA IN MOST OF THE TROCHLEA AND PART OF THE PATELLA. SYNOVECTOMY WAS PREFORMED IN THE SUPERIOR MEDIAL COMPARTMENT. THE WOUNDS WERE APPROXIMATED WITH 4.0 NYLON. STERILE DRESSING WAS APPLIED. PATIENT WAS EXTUBATED. Estimated Blood Loss 5 Complications No immediate complications Condition stable Disposition PACU
== END 2021-10-14 10:22 | disposition home or self-care (01) ==
PROVIDERS: PCP Family Medicine; Visit Provider Orthopaedic Surgery
PROC: (CPT 29870; principal; 2021-10-14 07:30)
DX: M23.203 Derangement of unspecified medial meniscus due to old tear or injury, right knee (principal); M23.241 Derangement of anterior horn of lateral meniscus due to old tear or injury, right knee; M22.41 Chondromalacia patellae, right knee; M65.861 Other synovitis and tenosynovitis, right lower leg; M25.761 Osteophyte, right knee; I10 Essential (primary) hypertension; D36.10 Benign neoplasm of peripheral nerves and autonomic nervous system, unspecified; G47.33 Obstructive sleep apnea (adult) (pediatric); M72.2 Plantar fascial fibromatosis; M47.814 Spondylosis without myelopathy or radiculopathy, thoracic region; Z87.891 Personal history of nicotine dependence; E66.9 Obesity, unspecified; Z68.37 Body mass index [BMI] 37.0-37.9, adult
CPT/HCPCS: 29881; A9270; J0690; J1040; J1100; J2250; J2405; J2704; J3010; J7120

== ENCOUNTER 2021-10-16 06:05 | Observation (INO) | payer OTHER, SELFPAY ==
[2021-10-16] VITALS (15 sets, daily range): BP systolic 90–137; BP diastolic 56–84; PULSE 60–117; RESP 16–20; TEMP 35.9–36.8; O2SAT 96–100; BMI 40.4
--- NOTE | ~2021-10-16 | XR_ITS ---
EXAMINATION: XR chest 1V portable INDICATION: Weakness, blood in stool TECHNIQUE: Portable AP chest at 0636 hours COMPARISON: 12/20/2007 FINDINGS: The lungs are free of acute opacities. There is no pleural effusion or pneumothorax. The [facility] mediastinal silhouette is normal for technique. IMPRESSION: 1. No acute cardiopulmonary abnormality. Reviewed, dictated and finalized at location A. SEAM RUBBER
--- NOTE | ~2021-10-16 | CT_ITS ---
EXAMINATION: CT abdomen pelvis w con INDICATION: Abdominal pain and bloody diarrhea TECHNIQUE: Computed tomographic images of the abdomen and pelvis were obtained after the administrati on of 100 cc of Omnipaque 350 intravenous contrast. The dose-length product (DLP) was 1193.81 mGy-cm. Automated exposure control and iterative reconstruction technique were employed. COMPARISON: 07/14/2020 FINDINGS: Minimal dependent atelectasis is present in the lung bases. The heart size is normal. Punct ate calcifications in the liver and spleen likely represent healed granulomatous disease. The pancrea s, gallbladder, and adrenal glands are normal. Cysts of the kidneys measure up to 10 mm on the right. No pathologically enlarged abdominal or pelvic lymph nodes are identified. There is calcified athero sclerosis of the aorta and many of the other arteries. There is no free intraperitoneal gas or eviden ce of bowel obstruction. There is liquid stool throughout the colon to the level of the rectum. There is mild lumbar spondylosis. The appendix is normal. IMPRESSION: 1. Liquid stool throughout the colon to the level of the rectum, consistent with history of diarrhea. Reviewed, dictated and finalized at location A. LASTER TACK IMPRESSION: 1. Liquid stool throughout the colon to the level of the rectum, consistent wit h history of diarrhea.
--- NOTE | ~2021-10-16 | XR_ITS ---
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 Oral contrast was administered, and sequential radiographs of the abdomen were obtained until oral contrast was noted to be in the proxi mal colon. Spot fluoroscopic images of the small bowel were obtained. Fluoroscopy exposure time was 1 .9 minutes. The DAP for this procedure was 43.033 Gycm2. COMPARISON: None. FINDINGS: The professor of special education image is unremarkable. Transit time from the stomach to proximal colon was approx imately 15 minutes. There is normal caliber and mucosal fold pattern throughout the small bowel. Term inal ileum is normal. No tethering or abnormal mass effect observed upon the small bowel with real-t marisela fluoroscopy. IMPRESSION: 1. Unremarkable small bowel follow-through. Reviewed, dictated and finalized at location A. NER IRON
--- NOTE | 2021-10-16 06:27 | ECG_ITS ---
Measurements Intervals [place] Rate: 116 P: 36 TN: 129 QRS: -12 QRSD: 89 T: 9 QT: 310 QTc: 432 Interpretive Statements SINUS TACHYCARDIA POOR R WAVE PROGRESSION, ANTERIOR LEADS INFERIOR INFARCT, AGE INDETERMINATE BASELINE ARTIFACT- I, III, AVL, AVF ABNORMAL ECG Electronically Signed On 10-16-2021 7:58:16 [employer] by Terence Hernandez D.O.
--- NOTE | 2021-10-16 07:00 | PC.NURSE ---
Assumed care of pt. at this time. Report from SIDDHARTHA Reece
[2021-10-16 07:04] LABS: Basophils Absolute Auto 0.1 K/mm3 (0.0-0.1); Basophils Percent Auto 0.8 % (0.2-1.2); Eosinophils Absolute Auto 0.1 K/mm3 (0-0.3); Hemoglobin 13.3 g/dL (14.0-18.0); Immature Granulocyte Absolute 0.17 K/mm3 (0.00-0.031); Immature Granulocyte Percent A 1.3 % (0-0.5); Lymphocytes Percent Auto 23.3 % (18.3-44.2); Mean Corpuscular HGB Conc 34.1 g/dl (32-36); Mean Corpuscular Hemoglobin 31.1 pg (26-34); Mean Corpuscular Volume 91.1 fl (80-100); Mean Platelet Volume 9.9 fl (7.4-10.4); Monocytes Absolute Auto 1.4 K/mm3 (0.1-0.6); Monocytes Percent Auto 10.2 % (2.6-8.5); Neutrophils Absolute Auto 8.4 K/mm3 (1.3-6.7); Neutrophils Percent Auto 63.4 % (45.5-73.1); Platelet Count Result 271 k/mm3 (150-375); Red Blood Count 4.28 M/mm3 (4.6-6.20); Red Cell Distribution Width 12.7 % (11.5-14.5); White Blood Count 13.3 K/mm3 (4.5-10.0)
[2021-10-16 07:15] LABS: Alanine Aminotransferase 20 U/L (4-50); Albumin Level 3.7 g/dL (3.5-5.1); Alkaline Phosphatase 53 U/L (38-126); Anion Gap 10 mmol/L (8-16); Aspartate Amino Transferase 22 U/L (17-59); Bilirubin,Total 0.4 mg/dL (0.2-1.3); Blood Urea Nitrogen 28 mg/dL (9-20); Calcium 8.8 mg/dL (8.4-10.2); Carbon Dioxide 22 mmol/L (22-30); Chloride 110 mmol/L (98-107); Estimated Glomerular Filt Rate 57; Glucose 193 mg/dL (65-110); Lipase 105 U/L (23-300); Magnesium 2.1 mg/dL (1.6-2.3); Potassium 4.3 mmol/L (3.4-5.0); Sodium 142 mmol/L (137-145)
[2021-10-16 07:26] LABS: Troponin I < 0.012 ng/mL (0.000-0.034)
[2021-10-16 07:35] LABS: Prothrombin Time 12.7 Seconds (11.1-14.7)
[2021-10-16 07:50] LABS: Lipase 117 U/L (23-300)
[2021-10-16 07:52] LABS: Lactic Acid Reflex 1.8 mmol/L (0.7-2.1)
--- NOTE | 2021-10-16 08:13 | ED.GENADULT ---
HPI - General Adult General Chief complaint: Chest Pain Stated complaint: dyspnea, chest pain Time Seen by Provider: 10/16/21 07:18 Source: patient History of Present Illness HPI narrative: Patient with a history of hypertension recent meniscal repair presents with multiple complaints. Ports yesterday as well however this morning he felt nauseous chest pain shortness of breath and palpitations he called EMS. EMS noted heart rate in the 200s they attempted adenosine and did a cardioversion and their concern was for SVT. On arrival to ER patient reports his chest pain and palpitations had greatly improved. Patient was also reporting alvaro bloody diarrhea this morning. He denied any nausea or vomiting. Reports abdominal pain just prior to having a bowel movement. He denies use of any blood thinners. Denies any prior cardiac history he denies any GI disorders. Reports he has had colonoscopies and was told everything was okay. Related Data Home Medications Medication Instructions Recorded Confirmed multivitamin 1 tablet PO DAILY 04/09/21 10/16/21 nebivolol [Bystolic] 5 mg PO QAM 04/09/21 10/16/21 Allergies Allergy/AdvReac Type Severity Reaction Status Date / Time celecoxib AdvReac Intermediate Hallucinati Verified 10/14/21 06:18 ng lisinopril AdvReac Intermediate Hallucinati Verified 10/14/21 06:18 ng Review of Systems Review of Systems: CONSTITUTIONAL: Denies fever, chills, or sweats. EYES: Denies visual changes, redness, or discharge. ENT: Denies rhinorrhea, congestion, sore throat, or otalgia. CARDIOVASCULAR: Denies current chest pain, palpitations, or edema. RESPIRATORY: Denies cough or dyspnea. GASTROINTESTINAL: Reports bloody diarrhea and diffuse abdominal pain GENITOURINARY: Denies dysuria or hematuria. SKIN: Denies rash or itching. MUSCULOSKELETAL: Denies back pain, joint pain, or myalgia. NEUROLOGIC: Denies headache, numbness, dizziness, or weakness. PSYCHIATRIC: Denies anxiety or depression. All systems reviewed & are unremarkable except as noted in HPI and below [facility] Past Medical History Medical History BMI 36.0-36.9,adult BMI 37.0-37.9, adult BMI 39.0-39.9,adult Chronic headaches HTN (hypertension) Kidney stones, calcium oxalate Left sided abdominal pain Lesion of skin of scalp Medial meniscus, posterior horn derangement Neuroma digital nerve Numbness and tingling in both hands (~1998) Obesity GABRIELA on CPAP GABRIELA treated with BiPAP Plantar fasciitis Plantar fasciitis of left foot Rectal bleeding SVT (supraventricular tachycardia) Thoracic spondylosis (~2017) Surgical History Surgical History Carpal tunnel syndrome of left wrist Carpal tunnel syndrome of right wrist H/O cystoscopy with a placement of a stent H/O hernia repair umbilical and groin H/O right knee surgery Family History Family History Father Hypertension Family history of diabetes mellitus in first degree relative Family history of coronary artery disease Family history of elevated blood lipids Family history of congestive heart failure Diabetes mellitus Mother Cerebrovascular accident Family history of pancreatic cancer Family history of primary malignant neoplasm of liver Family history of thyroid disease Sibling Family history of thyroid disease Family history of elevated blood lipids Family history of diabetes mellitus in first degree relative Sibling Diabetes mellitus Sibling Diabetes mellitus Other Family history of alcoholism Family history of arthritis Medial meniscus, posterior horn derangement Social History Social History Smoking packs per day: 1 Smoking cigarettes per day: 20.0 Years smoked: 20 Smoking pack-years: 20.00 Smoking status: Former smoker
--- NOTE | 2021-10-16 08:32 | PM.IMHP ---
H&P: HPI History of Present Illness Date/Time: 10/16/21 08:32 cc: syncope, lower GI bleeding, SVT s/p cardioversion. HPI: This is a 56-year-old gentleman with a past medical history including but not limited to ADHD, hypertension, kidney stones, obstructive sleep apnea, recent meniscal repair was brought in by EMS after cardioversion on the field. The patient was in his usual state of health until yesterday. However, this morning he felt nauseous, presented some chest pain, associated with shortness of breath and palpitations. he had 2 alvaro bloody episodes of diarrhea this morning. He pass out on the bathroom floor for 5-10 minutes per his . he denies any head trauma. Visually there is a mild bruise on his left knee. He summoned the EMS to his residence . EMS noted heart rate in the 200s; after he failed to respond to adenosine, he underwent an electrical cardioversion with oriental orthodox of normal sinus rythm. On arrival to ER patient, the patient was found to be stable, afebrile with the following vital signs: Temp 35.9? C, pulse 117, respirations 16, blood pressure 114/84, saturation 97% on room air. He reports abdominal pain just prior to having a bowel movement. He denies any use of any blood thinners. He denies any prior cardiac history he denies any GI disorders. He has had colonoscopies in the past that wee reportedly normal. His EKG shows NSR, normal axis, rate 116, IL 129, QRS 89, QTc 379. No significant ST elevation/depression, no significant t wave changes. No acute ischemia or electrolyte disturbance. basic labs were drawn. His CBC showed a WBC of 13.3, hemoglobin 13.3 hematocrit 13.3 and a platelet count of 271. His chemistry shows a sodium of 142, potassium 4.3, chloride 110, bicarbonate 22, BUN 28 creatinine 1.3 blood glucose 193, and a calcium of 8.8. Initial troponin was negative. GI and Pulmonary Services were consulted. The hospital medicine service was consulted for additional management. Patient will be admitted inpatient for at least 2 midnights. Chief Complaint: Syncopal episode. Lower GI bleeding. Abdominal pain. Review of Systems Review of Systems: All systems reviewed & are unremarkable except as noted in HPI and below Constitutional: Constitutional: Reports as per HPI, Reports lethargy and Reports weakness Eyes: Eyes: Reports as per HPI and Denies photophobia ENT: Denies epistaxis Cardiovascular: Cardiovascular: Reports as per HPI, Reports chest pain, Denies pedal edema, Denies leg edema, Reports lightheadedness and Reports palpitations Respiratory: Respiratory: Reports as per HPI, Denies cough, Denies hemoptysis, Denies dyspnea, Denies dyspnea on exertion and Denies wheezing Gastrointestinal: Gastrointestinal: Reports as per HPI, Reports abdominal pain, Reports hematochezia, Reports diarrhea, Denies nausea, Denies vomiting and Denies hematemesis Genitourinary: Genitourinary: Reports no additional male genitourinary complaints and Reports as per HPI Musculoskeletal: Musculoskeletal: Reports no additional musculoskeletal complaints and Reports as per HPI Integumentary/Breasts: Skin/Breast: Reports system reviewed and no additional complaints, except as docu and Reports as per HPI Neurologic: Reports system reviewed and no additional complaints, except as documented and Reports as per HPI Psychiatric: Psychiatric: Reports no additional psychiatric complaints and Reports as per HPI [facility] Past Medical History Medical History BMI 36.0-36.9,adult BMI 37.0-37.9, adult BMI 39.0-39.9,adult Chronic headaches HTN (hypertension) Kidney stones, calcium oxalate Left sided abdominal pain Lesion of skin of scalp Medial meniscus, posterior horn derangement Neuroma digital nerve Numbness and tingling in both hands (~1998) Obesity GABRIELA on CPAP GABRIELA treated with BiPAP Plantar fasciitis Plantar fasciitis of left foot Rectal bleeding SVT (supraventricul
[2021-10-16] MEDS: SODIUM CHLORIDE 0.9% IV 1,000 ML 999 ML IV CONT (09:01)
[2021-10-16] MEDS: MORPHINE SULFATE (*CRX) 4 MG/ML INJ IV PUSH (09:04)
--- NOTE | 2021-10-16 09:35 | PC.NURSE ---
This patient, Terry Christianson, was admitted to IMU Room 213-01. Patient/family oriented to hospital policies and general routines including ID bracelet, bed and alarms, visiting hours, pain management, procedures, bathroom and other care routines, personal items, smoking policy, room service/diet, and visiting hours. Information on how to activate the Rapid Response Team has been discussed. Patient/Family are encouraged to report perceived risks to care and to ask questions if they do not understand what they are told or what they should do.
[2021-10-16] MEDS: SODIUM CHLORIDE 0.9% IV 1,000 ML 125 ML IV CONT ×2 (10:00→18:17)
[2021-10-16 10:35] LABS: Troponin I 0.081 ng/mL (0.000-0.034)
--- NOTE | 2021-10-16 11:51 | WPDGICN ---
Assessment and Plan Assessment and plan (1) Rectal bleeding: Code(s): K62.5 - Hemorrhage of anus and rectum Status: Acute Assessment and Plan: history highly consistent of ischemic colitis but normal lactic acid (will repeat), continue with supportive care, hydration ok to have only liquid diet may need colonoscopy in 2-3 days based on clinical course other ddx diverticular bleed but CT scan without diverticula, AVM's, infectious diarrhea,etc will get stool samples (2) SVT (supraventricular tachycardia): Code(s): I47.1 - Supraventricular tachycardia Status: Acute Assessment and Plan: treated by ems recent cardioversion could explain elevated troponin cardiology to see (3) Left sided abdominal pain: Code(s): R10.9 - Unspecified abdominal pain Status: Acute Assessment and Plan: medical treatment ivf's, will start flagyl (4) Leukocytosis (leucocytosis): Qualifiers: Leukocytosis type: unspecified Qualified Code(s): D72.829 - Elevated white blood cell count, unspecified Code(s): D72.829 - Elevated white blood cell count, unspecified Status: Acute (5) Medial meniscus, posterior horn derangement: Code(s): M23.329 - Other meniscus derangements, posterior horn of medial meniscus, unspecified knee Status: Acute Assessment and Plan: recent surgery without events GI Consult Note Consult date/time: 10/16/21 11:51 Reason for consult: rectal bleeding, left abdominal pain HPI: Terry Christianson is a 56 year old male with history of hypertension who had recent meniscal repair of right knee as outpatient. He came here after woke up with severe pain in left abdomen and then passed out briefly, also was nauseous, had chest pain with palpitation and loose stool followed by alvaro blood in stool. 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 CT scan reviewed and showed liquid stool consistent with diarrhea. Had total of 4 times of bloody stool, pain better after medical treatment. Denies previous episodes, last colonoscopy as screening 2 years ago. Review of Systems Constitutional: Constitutional: Denies lethargy Eyes: Eyes: Reports no additional eye complaints ENT: Reports Normal hearing present Cardiovascular: Cardiovascular: Reports palpitations Respiratory: Respiratory: Denies cough Gastrointestinal: Gastrointestinal: Reports abdominal pain, Reports hematochezia and Reports nausea Genitourinary: Genitourinary: Denies dysuria Musculoskeletal: Musculoskeletal: Denies neck pain Integumentary/Breasts: Skin/Breast: Reports system reviewed and no additional complaints, except as docu Neurologic: Denies headache(s) Psychiatric: Psychiatric: Denies anxiety [facility] Past Medical History Medical History (Updated 10/16/21 @ 11:58 by Samm Lang MD) BMI 36.0-36.9,adult BMI 37.0-37.9, adult BMI 39.0-39.9,adult Chronic headaches HTN (hypertension) Kidney stones, calcium oxalate Left sided abdominal pain Lesion of skin of scalp Medial meniscus, posterior horn derangement Neuroma digital nerve Numbness and tingling in both hands (~1998) Obesity GABRIELA on CPAP GABRIELA treated with BiPAP Plantar fasciitis Plantar fasciitis of left foot Rectal bleeding SVT (supraventricular tachycardia) Thoracic spondylosis (~2017) Surgical History Surgical History Carpal tunnel syndrome of left wrist Carpal tunnel syndrome of right wrist H/O cystoscopy with a placement of a stent H/O hernia repair umbilical and groin H/O right knee surgery Family History Family History Father Hypertension Family history of diabetes mellitus in first degree relative Family history of coronary artery d
[2021-10-16 13:35] LABS: Troponin I 0.092 ng/mL (0.000-0.034)
[2021-10-16] MEDS: metroNIDAZOLE 500 MG/ISO 100ML 500 MG/100 ML BAG 100 MG IVPB ×2 (13:36→21:48)
[2021-10-16 14:07] LABS: Hematocrit 30.2 % (42.0-52.0); Hemoglobin 10.3 g/dL (14.0-18.0)
[2021-10-16 14:21] LABS: Amphetamine Screen Urine Positive (Negative); Barbiturate Screen Urine Negative (Negative); Benzodiazepines Screen Urine Negative (Negative); Cannabinoid Screen Urine Negative (Negative); Cocaine Screen Urine Negative (Negative); Methadone Screen Urine Negative (Negative); Opiate Screen Urine Positive (Negative); Phencyclidine Screen Urine Negative (Negative)
--- NOTE | 2021-10-16 14:23 | PM.CNCAR ---
Assessment and Plan Additional Plan paroxysmal atrial arrhythmia, rhythm strip not available and was cardioverted byh EMS, currently in SR, liekly syncope and tachyarrhythmia triggered by GI bleeding, plan work up for GI bleeding and observe in Tele and event monitor on discharge History of Present Illness History of Present Illness Consult date/time: 10/16/21 14:23 Consult reason: Other (Tachycardia ) Reason For Visit: GI bleed/SVT Narrative: Patient presented with one episode of syncope at home, happened while going to bathroom and felt dizzy and cold sweat then passed out. When EMS arrived he was found in atrial tachyarrhythmia, shocked into SR. On arrival to ER he started having bloody bowel movements. Currently he doesn't feel dizzy or have chest pain or SOB but had recurrent bowel movements with blood. Review of Systems Review of Systems: All systems reviewed & are unremarkable except as noted in HPI and below PMFSH Past Medical History Medical History BMI 36.0-36.9,adult BMI 37.0-37.9, adult BMI 39.0-39.9,adult Chronic headaches HTN (hypertension) Kidney stones, calcium oxalate Left sided abdominal pain Lesion of skin of scalp Medial meniscus, posterior horn derangement Neuroma digital nerve Numbness and tingling in both hands (~1998) Obesity GABRIELA on CPAP GABRIELA treated with BiPAP Plantar fasciitis Plantar fasciitis of left foot Rectal bleeding SVT (supraventricular tachycardia) Thoracic spondylosis (~2017) Surgical History Surgical History Carpal tunnel syndrome of left wrist Carpal tunnel syndrome of right wrist H/O cystoscopy with a placement of a stent H/O hernia repair umbilical and groin H/O right knee surgery Family History Family History Father Hypertension Family history of diabetes mellitus in first degree relative Family history of coronary artery disease Family history of elevated blood lipids Family history of congestive heart failure Diabetes mellitus Mother Cerebrovascular accident Family history of pancreatic cancer Family history of primary malignant neoplasm of liver Family history of thyroid disease Sibling Family history of thyroid disease Family history of elevated blood lipids Family history of diabetes mellitus in first degree relative Sibling Diabetes mellitus Sibling Diabetes mellitus Other Family history of alcoholism Family history of arthritis Medial meniscus, posterior horn derangement Social History Social History Smoking packs per day: 1 Smoking cigarettes per day: 20.0 Years smoked: 20 Smoking pack-years: 20.00 Smoking status: Former smoker Additional smoking assessment comments: STATES QUIT 2004 Alcohol intake: never Substance use: never Substance use type: does not use 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 Gender identity (if verbalized by the patient): Male Spiritual care concerns: No Meds Home Medications and Allergies Home Medications Medication Instructions Recorded Confirmed Type multivitamin 1 tablet PO DAILY 04/09/21 10/16/21 History nebivolol [Bystolic] 5 mg PO QAM 04/09/21 10/16/21 History dextroamphetamine-amphetamine 10 10 mg PO QNOON #30 tablet 09/17/21 10/16/21 Rx mg tablet dextroamphetamine-amphetamine ER 30 mg PO QAM #30 cap 09/17/21 10/16/21 Rx 30 mg 24hr capsule,extend release hydrocodone-acetaminophen 1 tablet PO Q12H PRN #20 tablet 10/14/21 10/16/21 Rx Allergies Allergy/AdvReac Type Severity Reaction Status Date / Time celecoxib AdvReac Intermediate Hallucinati Verified 10/14/21 06:18 ng lisinopril AdvReac Intermediate Hallucinati Verified 10/14/21 06:18 ng Vital Signs Vital Signs - 24 hr 10/16/21 06:04 10/16/21
[2021-10-16 19:51] LABS: Hematocrit 29.1 % (42.0-52.0); Hemoglobin 10.1 g/dL (14.0-18.0)
[2021-10-16] MEDS: HYDROcodone/acetaminophen (*CRX) 5-325 MG TABLET 1 TAB PO (21:49)
[2021-10-17] VITALS (15 sets, daily range): BP systolic 123–135; BP diastolic 68–84; PULSE 51–99; RESP 16–20; TEMP 36–36.9; O2SAT 98–100
[2021-10-17] MEDS: SODIUM CHLORIDE 0.9% IV 1,000 ML 125 ML IV CONT ×3 (03:08→23:05)
[2021-10-17 03:18] LABS: Hematocrit 27.3 % (42.0-52.0); Hemoglobin 9.4 g/dL (14.0-18.0)
[2021-10-17] MEDS: metroNIDAZOLE 500 MG/ISO 100ML 500 MG/100 ML BAG 100 MG IVPB ×3 (05:46→20:56)
[2021-10-17 08:34] LABS: Hematocrit 28.6 % (42.0-52.0); Hemoglobin 9.6 g/dL (14.0-18.0); Mean Corpuscular HGB Conc 33.6 g/dl (32-36); Mean Corpuscular Hemoglobin 31.1 pg (26-34); Mean Corpuscular Volume 92.6 fl (80-100); Mean Platelet Volume 9.6 fl (7.4-10.4); Platelet Count Result 151 k/mm3 (150-375); Red Blood Count 3.09 M/mm3 (4.6-6.20); Red Cell Distribution Width 12.7 % (11.5-14.5); White Blood Count 7.3 K/mm3 (4.5-10.0)
[2021-10-17 08:40] LABS: Lactic Acid Reflex 1.4 mmol/L (0.7-2.1)
[2021-10-17 08:40] LABS: Anion Gap 3 mmol/L (8-16); Blood Urea Nitrogen 19 mg/dL (9-20); Calcium 8.1 mg/dL (8.4-10.2); Carbon Dioxide 26 mmol/L (22-30); Chloride 105 mmol/L (98-107); Estimated CRCL calculation 112 ml/min; Estimated Glomerular Filt Rate > 60; Glucose 107 mg/dL (65-110); Magnesium 1.8 mg/dL (1.6-2.3); Potassium 3.8 mmol/L (3.4-5.0); Sodium 134 mmol/L (137-145)
--- NOTE | 2021-10-17 09:02 | P.PNIM_ITS ---
Progress Note: A&P Assessment and Plan (1) Acute GI bleeding: Code(s): K92.2 - Gastrointestinal hemorrhage, unspecified Status: Acute Assessment and Plan: Reportedly patient had 2 bloody bowel movements prior to presentation; he had a total of 4 episodes of bloody stools. Repeat lactic acid is 1.4. He denies rectal bleeding this morning. Patient was started on full liquid diet. Will continue maintenance IV fluid, monitor serial hemoglobin and hematocrit. Hemoglobin and hematocrit at presentation were 13 and 39 respectively. On today's lab hemoglobin was 9.6 and hematocrit 28.6. Continue close monitoring over the next 24-48 hours. Currently patient is hemodynamically stable. After single dose of morphine 4 mg IV, his abdominal pain has resolved. We appreciate GI recommendation; plan for colonoscopy on Tuesday. (2) Elevated troponin: Code(s): R77.8 - Other specified abnormalities of plasma proteins Status: Acute Assessment and Plan: Likely type 2 KS secondary to supply demand mismatch in the setting of supraventricular tachycardia. No ischemic workup is indicated at this juncture. He reports chest pain, left-sided, reproducible, likely related to his fall. Lidocaine patch p.r.n. (3) Essential hypertension: Code(s): I10 - Essential (primary) hypertension Status: Acute Assessment and Plan: Patient had well-controlled hypertension on bystolic monotherapy. Patient was hypotensive with a blood pressure of 90/66 on 10/16/2021. Currently Bystolic remains on hold; we are continuing IV fluid resuscitation. The patient has improved hemodynamically today with blood pressure of 135/84. Continue close blood pressure monitoring. Hold Bystolic. (4) SVT (supraventricular tachycardia): Code(s): I47.1 - Supraventricular tachycardia Status: Acute Assessment and Plan: Patient presented what appears to be an episode of suprapubic ventricular tachycardia in the 200 per EMS, without response to adenosine. He was successfu lly cardioverted and presented a normal sinus rhythm. We will monitor his serum electrolyte, start the patient on cardiac monitoring. Patient was previously on a Bystolic, that were holding. (5) Left sided abdominal pain: Code(s): R10.9 - Unspecified abdominal pain Status: Acute Assessment and Plan: The etiology of his abdominal pain is unclear. Patient has had normal colonoscopies in the past. CT scan of the abdomen reveals liquid stool throughout the colon to the level of the rectum, consistent with history of diarrhea. abdomen exam was significant for diffuse lower quadrant pain. There is no distension and bowel sounds are audible. On examination today his abdomen is soft not tender not distended. (6) Medial meniscus, posterior horn derangement: Code(s): M23.329 - Other meniscus derangements, posterior horn of medial meniscus, unspecified knee Status: Acute Assessment and Plan: Patient recently admitted for orthopedic intervention. He denies current anti-platelet use. We will monitor him closely. Continue p.o. pain management. (7) BMI 36.0-36.9,adult: Code(s): Z68.36 - Body mass index [BMI] 36.0-36.9, adult Status: Acute Assessment and Plan: Patient was counseled to start calorie restriction and increase physical activity. (8) Kidney stones, calcium oxalate: Code(s): N20.0 - Calculus of kidney Status: Acute Assessment and Plan: Previous history of kidney stones. Currently patient is asymptomatic. Encourage oral fluid intake, low-salt diet, plant based diet at the time of discharge.
[2021-10-17] MEDS: HYDROcodone/acetaminophen (*CRX) 5-325 MG TABLET 1 TAB PO ×2 (09:36→20:57)
[2021-10-17] MEDS: LIDOCAINE 5% PATCH 2 PATCH TRANSDERM (10:46)
--- NOTE | 2021-10-17 12:57 | WPDGIPROGNO ---
Progress Note: A&P Assessment and Plan (1) Left sided abdominal pain: Code(s): R10.9 - Unspecified abdominal pain Status: Acute Assessment and Plan: is at bedside and they both say that pain in left abdomen/left flank intermittently for few years but never this severe, work up in the past negative, never had EGD will order SBFT to assess small bowel and plan is to do EGD and colonoscopy Tuesday tolerating liquid diet (2) Rectal bleeding: Code(s): K62.5 - Hemorrhage of anus and rectum Status: Acute (3) Acute blood loss anemia: Code(s): D62 - Acute posthemorrhagic anemia Status: Acute Assessment and Plan: continue to monitor scopes and sbft (4) SVT (supraventricular tachycardia): Code(s): I47.1 - Supraventricular tachycardia Status: Acute Assessment and Plan: resolved, this also caused elevated troponin after cardioversion and cardiology on board (5) Leukocytosis (leucocytosis): Qualifiers: Leukocytosis type: unspecified Qualified Code(s): D72.829 - Elevated white blood cell count, unspecified Code(s): D72.829 - Elevated white blood cell count, unspecified Status: Acute Assessment and Plan: resolved, started on iv flagyl repeat lactic acid normal Subjective Date/time seen: 10/17/21 12:57 Interval history: left flank pain better, still chest discomfort, last BM with small blood. Review of Systems Review of Systems: All systems reviewed & are unremarkable except as noted in HPI and below Exam Const: General: comfortable and no acute distress HENMT: General nose exam: Normal nares present Eyes: Sclera: sclerae normal Neck: Neck: supple Resp: Auscultation: clear to auscultation bilaterally Cardio: Rate: regular rate GI: Inspection: non-distended GI Palp: Yes Soft to palpation and No Guarding due to palpation present (GI) Auscultation: normal bowel sounds Skin: General skin exam: normal color and no rashes or lesions noted Neuro: Speech: normal speech Motor exam (neuro): Normal motor muscle tone present throughout Extrem: General: normal to inspection Psych: Mental Status: mental status grossly normal Objective Data Vital Signs Vital Signs: Vital Signs - 24 hr 10/16/21 14:00 10/16/21 16:00 10/16/21 18:00 Temperature 98.3 F Pulse Rate 84 90 95 Respiratory Rate 20 Blood Pressure 137/72 Pulse Oximetry 97 10/16/21 20:00 10/16/21 22:00 10/16/21 22:35 Temperature 97.5 F L Pulse Rate 69 76 63 Respiratory Rate 16 16 Blood Pressure 105/59 L Pulse Oximetry 98 97 10/16/21 23:35 10/17/21 00:00 10/17/21 02:00 Temperature 97 F L Pulse Rate 60 60 51 L Respiratory Rate 18 Blood Pressure 107/71 Pulse Oximetry 100 100 10/17/21 03:55 10/17/21 04:00 10/17/21 06:00 Temperature 96.9 F L Pulse Rate 57 L 55 L 59 L Respiratory Rate 20 Blood Pressure 135/84 Pulse Oximetry 100 100 10/17/21 08:00 10/17/21 12:00 Temperature 97.9 F Pulse Rate 86 Respiratory Rate 18 Blood Pressure 131/68 Pulse Oximetry 100 100 Intake/Output Intake/Output: Intake & Output 10/14/21 10/15/21 10/16/21 10/17/21 23:59 23:59 23:59 23:59 Intake Total 2900 2600 Output Total 1200 800 Balance 1700 1800 Meds/Results Medications: Active Medications Generic Name Dose Route Start Last Admin Trade Name Declan PRN Reason Stop Dose Admin Hydrocodone Bitart/Acetaminophen 1 tab 10/16/21 18:40 10/17/21 09:36 Hydrocodone/Acetaminophen (*Crx) 5-325 Mg Tablet PO 1 tab Q12H PRN Administration MODERATE PAIN Sodium Chloride 1,000 mls @ 125 mls/hr 10/16/21 08:30 10/17/21 12:13 Normal Saline Iv IV CONT 125 mls/hr .Q8H DIONY Administration Metronidazole 500 mg in 100 mls @ 100 mls/hr 10/16/21 11:50 10/17/21 06:46 Flagyl 500 Mg/Iso Soln 100 Ml IVPB Infused Q8HR DIONY Infusion Lidocaine 2 patch 10/17/21 09:00 10/17/21 10:46 Lidocaine
--- NOTE | 2021-10-17 13:35 | PM.PNCARD ---
Progress Note: A&P Additional Plan paroxysmal atrial arrhythmia, rhythm strip not available and was cardioverted by EMS, currently in SR, likely syncope and tachyarrhythmia triggered by GI bleeding, plan work up for GI bleeding and observe in Tele and event monitor on discharge Subjective Date/time seen: 10/17/21 13:35 Interval history: no acute events still have lower GI bleed No recurrent arrhythmia on Tele Review of Systems Review of Systems: All systems reviewed & are unremarkable except as noted in HPI and below Exam Const: General: comfortable and no acute distress Other: Able to lie flat HENMT: General nose exam: Normal nares present and no epistaxis Mouth: Yes moist mucous membranes Eyes: Sclera: sclerae normal Pupils: Equal, round and reactive pupils present Neck: Neck: supple and no JVD Carotids: no bruits Resp: Auscultation: clear to auscultation bilaterally and lung sounds not diminished Other: No chest wall tenderness Cardio: Rate: regular rate Rhythm: regular rhythm Heart sounds: no gallops, no murmurs and no rubs GI: GI Palp: Yes Soft to palpation and No Tenderness to palpation present (GI) Auscultation: normal bowel sounds Skin: General skin exam: normal color, rashes and/or lesions noted and no erythema Other: Warm Neuro: Cranial nerves: Yes Equal, round and reactive pupils present Speech: normal speech Other: No obvious focal deficit or facial asymmetry Extrem: General: no edema Other: Normal capillary refills Intact distal pulses. Objective Data Vital Signs Vital Signs: Vital Signs - 24 hr 10/16/21 14:00 10/16/21 16:00 10/16/21 18:00 Temperature 36.8 C Pulse Rate 84 90 95 Respiratory Rate 20 Blood Pressure 137/72 Pulse Oximetry 97 10/16/21 20:00 10/16/21 22:00 10/16/21 22:35 Temperature 36.4 C L Pulse Rate 69 76 63 Respiratory Rate 16 16 Blood Pressure 105/59 L Pulse Oximetry 98 97 10/16/21 23:35 10/17/21 00:00 10/17/21 02:00 Temperature 36.1 C L Pulse Rate 60 60 51 L Respiratory Rate 18 Blood Pressure 107/71 Pulse Oximetry 100 100 10/17/21 03:55 10/17/21 04:00 10/17/21 06:00 Temperature 36.1 C L Pulse Rate 57 L 55 L 59 L Respiratory Rate 20 Blood Pressure 135/84 Pulse Oximetry 100 100 10/17/21 08:00 10/17/21 12:00 Temperature 36.6 C Pulse Rate 86 Respiratory Rate 18 Blood Pressure 131/68 Pulse Oximetry 100 100 Intake/Output Intake/Output: Intake & Output 10/14/21 10/15/21 10/16/21 10/17/21 23:59 23:59 23:59 23:59 Intake Total 2900 2600 Output Total 1200 800 Balance 1700 1800 Meds/Results Medications: Active Medications Generic Name Dose Route Start Last Admin Trade Name Freq PRN Reason Stop Dose Admin Hydrocodone Bitart/Acetaminophen 1 tab 10/16/21 18:40 10/17/21 09:36 Hydrocodone/Acetaminophen (*Crx) 5-325 Mg Tablet PO 1 tab Q12H PRN Administration MODERATE PAIN Sodium Chloride 1,000 mls @ 125 mls/hr 10/16/21 08:30 10/17/21 12:13 Normal Saline Iv IV CONT 125 mls/hr .Q8H DIONY Administration Metronidazole 500 mg in 100 mls @ 100 mls/hr 10/16/21 11:50 10/17/21 06:46 Flagyl 500 Mg/Iso Soln 100 Ml IVPB Infused Q8HR DIONY Infusion Lidocaine 2 patch 10/17/21 09:00 10/17/21 10:46 Lidocaine 5% Patch TRANSDERM 2 patch DAILY DIONY Administration Morphine Sulfate 2 mg 10/17/21 07:46 Morphine Sulfate (*Crx) 2 Mg/Ml Inj IV PUSH Q4H PRN Pain Rated 7-10 Ondansetron HCl 4 mg 10/16/21 08:30 Ondansetron Inj 4 Mg/2 Ml Vial IV PUSH Q4H PRN Nausea Radiology Results: ITS Impressions Abdomen/Pelvis CT 10/16/21 07:51 IMPRESSION: 1. Liquid stool throughout the colon to the level of the rectum, consistent with history of diarrhea. Chest X-Ray 10/16/21 08:12 IMPRESSION: 1. No acute cardiopulmonary abnormality. Labs Labs: Laboratory Results - last 24 hr 10/16/21 10/16/21 10/16/21 12:31 13:41
[2021-10-17 15:04] LABS: Hematocrit 27.4 % (42.0-52.0); Hemoglobin 9.5 g/dL (14.0-18.0)
[2021-10-17] MEDS: MORPHINE SULFATE (*CRX) 2 MG/ML INJ IV PUSH ×2 (15:35→23:09)
[2021-10-17 20:12] LABS: Hematocrit 25.7 % (42.0-52.0); Hemoglobin 8.8 g/dL (14.0-18.0)
[2021-10-18] VITALS (12 sets, daily range): BP systolic 122–140; BP diastolic 70–82; PULSE 52–100; RESP 12–18; TEMP 36.1–37.3; O2SAT 98–100
[2021-10-18 04:51] LABS: Hematocrit 24.3 % (42.0-52.0); Hemoglobin 8.3 g/dL (14.0-18.0); Mean Corpuscular HGB Conc 34.2 g/dl (32-36); Mean Corpuscular Hemoglobin 30.9 pg (26-34); Mean Corpuscular Volume 90.3 fl (80-100); Mean Platelet Volume 9.7 fl (7.4-10.4); Platelet Count Result 150 k/mm3 (150-375); Red Blood Count 2.69 M/mm3 (4.6-6.20); Red Cell Distribution Width 12.3 % (11.5-14.5); White Blood Count 6.3 K/mm3 (4.5-10.0)
[2021-10-18] MEDS: HYDROcodone/acetaminophen (*CRX) 5-325 MG TABLET 1 TAB PO ×2 (05:03→14:36)
[2021-10-18] MEDS: metroNIDAZOLE 500 MG/ISO 100ML 500 MG/100 ML BAG 100 MG IVPB ×2 (05:04→14:36)
[2021-10-18 05:09] LABS: Potassium 3.9 mmol/L (3.4-5.0)
[2021-10-18 05:46] LABS: Anion Gap 3 mmol/L (8-16); Blood Urea Nitrogen 18 mg/dL (9-20); Calcium 8.4 mg/dL (8.4-10.2); Carbon Dioxide 28 mmol/L (22-30); Chloride 107 mmol/L (98-107); Estimated CRCL calculation 99 ml/min; Estimated Glomerular Filt Rate > 60; Glucose 113 mg/dL (65-110); Magnesium 1.8 mg/dL (1.6-2.3); Sodium 138 mmol/L (137-145)
[2021-10-18] MEDS: SODIUM CHLORIDE 0.9% IV 1,000 ML 125 ML IV CONT ×2 (07:46→18:50)
[2021-10-18] MEDS: LIDOCAINE 5% PATCH 2 PATCH TRANSDERM (08:04)
--- NOTE | 2021-10-18 10:56 | WPDGIPROGNO ---
Progress Note: A&P Assessment and Plan (1) Left sided abdominal pain: Code(s): R10.9 - Unspecified abdominal pain Status: Acute Assessment and Plan: SBFT was just completed egd and colonoscopy tomorrow tolerating liquid diet no more signs of bleeding (2) Rectal bleeding: Code(s): K62.5 - Hemorrhage of anus and rectum Status: Acute Assessment and Plan: stable h/h (3) Acute blood loss anemia: Code(s): D62 - Acute posthemorrhagic anemia Status: Acute Assessment and Plan: continue to monitor scopes and sbft (4) SVT (supraventricular tachycardia): Code(s): I47.1 - Supraventricular tachycardia Status: Acute Assessment and Plan: resolved, this also caused elevated troponin after cardioversion and cardiology on board (5) Leukocytosis (leucocytosis): Qualifiers: Leukocytosis type: unspecified Qualified Code(s): D72.829 - Elevated white blood cell count, unspecified Code(s): D72.829 - Elevated white blood cell count, unspecified Status: Acute Assessment and Plan: resolved, started on iv flagyl- if colonoscopy normal then we will discontinue repeat lactic acid normal Subjective Date/time seen: 10/18/21 10:56 Interval history: no more bleeding, still pain in left flank Review of Systems Review of Systems: All systems reviewed & are unremarkable except as noted in HPI and below Exam Const: General: comfortable and no acute distress HENMT: General nose exam: Normal nares present Eyes: Sclera: sclerae normal Neck: Neck: supple Resp: Auscultation: clear to auscultation bilaterally Cardio: Rate: regular rate GI: Inspection: non-distended GI Palp: Yes Soft to palpation and No Guarding due to palpation present (GI) Auscultation: normal bowel sounds Skin: General skin exam: normal color and no rashes or lesions noted Neuro: Speech: normal speech Motor exam (neuro): Normal motor muscle tone present throughout Extrem: General: normal to inspection Psych: Mental Status: mental status grossly normal Objective Data Vital Signs Vital Signs: Vital Signs - 24 hr 10/17/21 12:00 10/17/21 14:00 10/17/21 16:00 Temperature 97.9 F Pulse Rate 82 69 88 Respiratory Rate 18 16 Blood Pressure 131/68 130/80 Pulse Oximetry 100 99 10/17/21 18:00 10/17/21 20:00 10/17/21 22:00 Temperature 96.8 F L Pulse Rate 83 73 65 Respiratory Rate 16 Blood Pressure 123/75 Pulse Oximetry 100 10/17/21 23:01 10/17/21 23:58 10/18/21 00:00 Temperature 98.4 F Pulse Rate 67 62 71 Respiratory Rate 19 20 Blood Pressure 131/83 Pulse Oximetry 98 100 100 10/18/21 02:00 10/18/21 04:00 10/18/21 06:00 Temperature 99.2 F Pulse Rate 63 52 L 68 Respiratory Rate 18 Blood Pressure 140/70 Pulse Oximetry 98 10/18/21 08:00 10/18/21 10:00 Temperature 98.3 F Pulse Rate 57 L 100 Respiratory Rate 16 Blood Pressure 122/73 Pulse Oximetry 99 Intake/Output Intake/Output: Intake & Output 10/15/21 10/16/21 10/17/21 10/18/21 23:59 23:59 23:59 23:59 Intake Total 2900 4700 1700 Output Total 1200 800 300 Balance 1700 3900 1400 Meds/Results Medications: Active Medications Generic Name Dose Route Start Last Admin Trade Name Freq PRN Reason Stop Dose Admin Acetaminophen 650 mg 10/18/21 09:56 Acetaminophen 325 Mg Tablet PO Q6H PRN Mild Pain (1-3) or Fever Hydrocodone Bitart/Acetaminophen 1 tab 10/17/21 18:57 10/18/21 05:03 Hydrocodone/Acetaminophen (*Crx) 5-325 Mg Tablet PO 1 tab Q6H PRN Administration MODERATE PAIN Sodium Chloride 1,000 mls @ 125 mls/hr 10/16/21 08:30 10/18/21 07:46 Normal Saline Iv IV CONT 125 mls/hr .Q8H DIONY Administration Metronidazole 500 mg in 100 mls @ 100 mls/hr 10/16/21 11:50 10/18/21 06:04 Flagyl 500 Mg/Iso Soln 100 Ml IVPB Infused Q8HR DIONY Infusion Lidocaine 2 patch 10/17/21 09:00 10/18/21 08:04
[2021-10-18] MEDS: ACETAMINOPHEN 325 MG TABLET 650 MG PO (11:00)
--- NOTE | 2021-10-18 11:45 | PM.IMPN ---
Progress Note: A&P Assessment and Plan (1) Acute GI bleeding: Code(s): K92.2 - Gastrointestinal hemorrhage, unspecified Status: Acute Assessment and Plan: Reportedly patient had 2 bloody bowel movements prior to presentation; he had a total of 4 episodes of bloody stools. Repeat lactic acid is 1.4. He denies rectal bleeding this morning. Patient was started on full liquid diet. Will continue maintenance IV fluid, monitor serial hemoglobin and hematocrit. Hemoglobin and hematocrit at presentation were 13 and 39 respectively. On today's lab hemoglobin was 9.6 and hematocrit 28.6. Continue close monitoring over the next 24-48 hours. Currently patient is hemodynamically stable. After single dose of morphine 4 mg IV, his abdominal pain has resolved. We appreciate GI recommendation; plan for colonoscopy on Tuesday. (2) Elevated troponin: Code(s): R77.8 - Other specified abnormalities of plasma proteins Status: Acute Assessment and Plan: Likely type 2 MA secondary to supply demand mismatch in the setting of supraventricular tachycardia. No ischemic workup is indicated at this juncture. He reports chest pain, left-sided, reproducible, likely related to his fall. Lidocaine patch p.r.n. (3) Essential hypertension: Code(s): I10 - Essential (primary) hypertension Status: Acute Assessment and Plan: Patient had well-controlled hypertension on bystolic monotherapy. Patient was hypotensive with a blood pressure of 90/66 on 10/16/2021. Currently Bystolic remains on hold; we are continuing IV fluid resuscitation. The patient has improved hemodynamically today with blood pressure of 135/84. Continue close blood pressure monitoring. Hold Bystolic. (4) SVT (supraventricular tachycardia): Code(s): I47.1 - Supraventricular tachycardia Status: Acute Assessment and Plan: Patient presented what appears to be an episode of suprapubic ventricular tachycardia in the 200 per EMS, without response to adenosine. He was successfully cardioverted and presented a normal sinus rhythm. We will monitor his serum electrolyte, start the patient on cardiac monitoring. Patient was previously on a Bystolic, that were holding. (5) Left sided abdominal pain: Code(s): R10.9 - Unspecified abdominal pain Status: Acute Assessment and Plan: The etiology of his abdominal pain is unclear. Patient has had normal colonoscopies in the past. CT scan of the abdomen reveals liquid stool throughout the colon to the level of the rectum, consistent with history of diarrhea. abdomen exam was significant for diffuse lower quadrant pain. There is no distension and bowel sounds are audible. On examination today his abdomen is soft not tender not distended. (6) Medial meniscus, posterior horn derangement: Code(s): M23.329 - Other meniscus derangements, posterior horn of medial meniscus, unspecified knee Status: Acute Assessment and Plan: Patient recently admitted for orthopedic intervention. He denies current anti-platelet use. We will monitor him closely. Continue p.o. pain management. (7) BMI 36.0-36.9,adult: Code(s): Z68.36 - Body mass index [BMI] 36.0-36.9, adult Status: Acute Assessment and Plan: Patient was counseled to start calorie restriction and increase physical activity. (8) Kidney stones, calcium oxalate: Code(s): N20.0 - Calculus of kidney Status: Acute Assessment and Plan: Previous history of kidney stones. Currently patient is asymptomatic. Encourage oral fluid intake, low-salt diet, plant based diet at the time of discharge. (9) Sleep apnea in adult: Code(s): G47.30 - Sleep apnea, unspecified Status: Acute Assessment and Plan: CPAP hospital tolerated her night. Continue CPAP at bedtime. Additional Plan 10/18/2021 Patient is feeling slightly better. Hemoglobin is stable. No acute blee
--- NOTE | 2021-10-18 12:02 | PM.PNCARD ---
Progress Note: A&P Additional Plan paroxysmal atrial arrhythmia, rhythm strip not available and was cardioverted by EMS, currently in SR, likely syncope and tachyarrhythmia triggered by GI bleeding, elevated trop likely related to GI bleeding and tachyarrhythmia, plan work up for GI bleeding and observe in Tele and event monitor on discharge Subjective Date/time seen: 10/18/21 12:02 Interval history: no acute events Tele: SR 60 to 130 Review of Systems Review of Systems: All systems reviewed & are unremarkable except as noted in HPI and below Exam Const: General: comfortable and no acute distress Other: Able to lie flat HENMT: General nose exam: Normal nares present and no epistaxis Mouth: Yes moist mucous membranes Eyes: Sclera: sclerae normal Pupils: Equal, round and reactive pupils present Neck: Neck: supple and no JVD Carotids: no bruits Resp: Auscultation: clear to auscultation bilaterally and lung sounds not diminished Other: No chest wall tenderness Cardio: Rate: regular rate Rhythm: regular rhythm Heart sounds: no gallops, no murmurs and no rubs GI: GI Palp: Yes Soft to palpation and No Tenderness to palpation present (GI) Auscultation: normal bowel sounds Skin: General skin exam: normal color, rashes and/or lesions noted and no erythema Other: Warm Neuro: Cranial nerves: Yes Equal, round and reactive pupils present Speech: normal speech Other: No obvious focal deficit or facial asymmetry Extrem: General: no edema Other: Normal capillary refills Intact distal pulses. Objective Data Vital Signs Vital Signs: Vital Signs - 24 hr 10/17/21 14:00 10/17/21 16:00 10/17/21 18:00 Temperature Pulse Rate 69 88 83 Respiratory Rate 16 Blood Pressure 130/80 Pulse Oximetry 99 10/17/21 20:00 10/17/21 22:00 10/17/21 23:01 Temperature 36.0 C L Pulse Rate 73 65 67 Respiratory Rate 16 19 Blood Pressure 123/75 Pulse Oximetry 100 98 10/17/21 23:58 10/18/21 00:00 10/18/21 02:00 Temperature 36.9 C Pulse Rate 62 71 63 Respiratory Rate 20 Blood Pressure 131/83 Pulse Oximetry 100 100 10/18/21 04:00 10/18/21 06:00 10/18/21 08:00 Temperature 37.3 C 36.8 C Pulse Rate 52 L 68 57 L Respiratory Rate 18 16 Blood Pressure 140/70 122/73 Pulse Oximetry 98 99 10/18/21 10:00 10/18/21 11:52 Temperature 36.4 C L Pulse Rate 100 88 Respiratory Rate 14 Blood Pressure 124/77 Pulse Oximetry 100 Intake/Output Intake/Output: Intake & Output 10/15/21 10/16/21 10/17/21 10/18/21 23:59 23:59 23:59 23:59 Intake Total 2900 4700 1700 Output Total 1200 800 300 Balance 1700 3900 1400 Meds/Results Medications: Active Medications Generic Name Dose Route Start Last Admin Trade Name Freq PRN Reason Stop Dose Admin Acetaminophen 650 mg 10/18/21 09:56 10/18/21 11:00 Acetaminophen 325 Mg Tablet PO 650 mg Q6H PRN Administration Mild Pain (1-3) or Fever Hydrocodone Bitart/Acetaminophen 1 tab 10/17/21 18:57 10/18/21 05:03 Hydrocodone/Acetaminophen (*Crx) 5-325 Mg Tablet PO 1 tab Q6H PRN Administration MODERATE PAIN Bisacodyl 20 mg 10/18/21 17:00 Bisacodyl 5 Mg Tablet Ec PO 10/18/21 17:01 ONCE ONE Sodium Chloride 1,000 mls @ 125 mls/hr 10/16/21 08:30 10/18/21 07:46 Normal Saline Iv IV CONT 125 mls/hr .Q8H DIONY Administration Metronidazole 500 mg in 100 mls @ 100 mls/hr 10/16/21 11:50 10/18/21 06:04 Flagyl 500 Mg/Iso Soln 100 Ml IVPB Infused Q8HR DIONY Infusion Lidocaine 2 patch 10/17/21 09:00 10/18/21 08:04 Lidocaine 5% Patch TRANSDERM 2 patch DAILY DIONY Administration Magnesium Citrate 300 ml 10/19/21 04:00 Magnesium Citrate 300 Ml Btl PO 10/19/21 04:01 ONCE ONE Morphine Sulfate 2 mg 10/17/21 07:46 10/17/21 23:09 Morphine Sulfate (*Crx) 2 Mg/Ml Inj IV PUSH 2 mg Q4H PRN Administration Pain Rated 7-10 Ondansetron HCl 4 mg 10/16/21 08:30 Ondansetron Inj 4 Mg/
[2021-10-18 17:23] LABS: Hemoglobin 9.1 g/dL (14.0-18.0)
[2021-10-18] MEDS: BISACODYL 5 MG TABLET EC 20 MG PO (17:31)
[2021-10-18] MEDS: polyethylene glycoL 3350 238 GM BOTTLE PO (17:32)
--- NOTE | 2021-10-18 18:35 | PC.NURSE ---
This patient, Terry Christianson, was received from [[id number] ] on 10/18/21 at 1830 to room 319. Patient/family oriented to unit policies and routines
--- NOTE | 2021-10-18 18:36 | PC.NURSE ---
This patient, Terry Christianson, was transferred to [[id number] ] on 10/18/21 at 1835. Personal belongings sent with patient. Report given to [Guillermina ]. Appropriate documentation sent with patient.
[2021-10-19] VITALS (11 sets, daily range): BP systolic 107–139; BP diastolic 60–86; PULSE 64–100; RESP 16–21; TEMP 36.4–36.8; O2SAT 95–100
[2021-10-19] MEDS: metroNIDAZOLE 500 MG/ISO 100ML 500 MG/100 ML BAG 100 MG IVPB ×3 (00:23→13:30)
[2021-10-19] MEDS: HYDROcodone/acetaminophen (*CRX) 5-325 MG TABLET 1 TAB PO (00:41)
[2021-10-19] MEDS: SODIUM CHLORIDE 0.9% IV 1,000 ML 125 ML IV CONT (04:03)
[2021-10-19] MEDS: MAGNESIUM CITRATE 300 ML BTL PO (04:37)
[2021-10-19 07:49] LABS: Hematocrit 26.8 % (42.0-52.0); Hemoglobin 9.3 g/dL (14.0-18.0); Mean Corpuscular HGB Conc 34.7 g/dl (32-36); Mean Corpuscular Hemoglobin 31.1 pg (26-34); Mean Corpuscular Volume 89.6 fl (80-100); Mean Platelet Volume 9.7 fl (7.4-10.4); Platelet Count Result 179 k/mm3 (150-375); Red Blood Count 2.99 M/mm3 (4.6-6.20); Red Cell Distribution Width 12.4 % (11.5-14.5); White Blood Count 6.6 K/mm3 (4.5-10.0)
[2021-10-19 07:50] LABS: Potassium 3.5 mmol/L (3.4-5.0)
[2021-10-19 07:53] LABS: Anion Gap 5 mmol/L (8-16); Blood Urea Nitrogen 10 mg/dL (9-20); Calcium 8.8 mg/dL (8.4-10.2); Carbon Dioxide 24 mmol/L (22-30); Chloride 106 mmol/L (98-107); Estimated CRCL calculation 98 ml/min; Estimated Glomerular Filt Rate > 60; Glucose 120 mg/dL (65-110); Magnesium 2.4 mg/dL (1.6-2.3); Sodium 135 mmol/L (137-145)
[2021-10-19] MEDS: LACTATED RINGERS 1,000 ML 150 ML IV CONT ×2 (08:20→14:01)
[2021-10-19] MEDS: PANTOPRAZOLE SODIUM IV 40 MG VIAL IV PUSH (08:20)
--- NOTE | 2021-10-19 09:44 | PM.PNCARD ---
Progress Note: A&P Assessment and Plan (1) SVT (supraventricular tachycardia): Code(s): I47.1 - Supraventricular tachycardia Status: Acute Assessment and Plan: Paroxysmal atrial arrhythmia terminated by EMS with DC cardioversion. Rhythm strip for this is not available. Thought to be triggered by GI bleed which is undergoing work up. Currently, he is in sinus rhythm with a rate in the 80's. Does have some sinus tachycardia noted on telemetry, likely with activity. Will place a tele monitor on discharge for continued observation of his cardiac rhythm and recurrence of any arrhmthmias. (2) Acute GI bleeding: Code(s): K92.2 - Gastrointestinal hemorrhage, unspecified Status: Acute Assessment and Plan: GI has been consulted and is following. Work up underway. Subjective Date/time seen: 10/19/21 09:44 Interval history: Cardiology follow up for atrial tachycardia Date of service 10/19/2021: Does not have any complaints today. Denies shortness of breath, chest pain. He does notice that his heart rate increases with activity. Review of Systems Review of Systems: All systems reviewed & are unremarkable except as noted in HPI and below Exam Const: General: comfortable and no acute distress HENMT: General nose exam: Normal nares present and no epistaxis Mouth: Yes moist mucous membranes Eyes: Sclera: sclerae normal Pupils: Equal, round and reactive pupils present Neck: Neck: supple and no JVD Carotids: no bruits Resp: Auscultation: clear to auscultation bilaterally and lung sounds not diminished Cardio: Rate: regular rate Rhythm: regular rhythm Heart sounds: no gallops, no murmurs and no rubs GI: Auscultation: normal bowel sounds Skin: General skin exam: normal color, rashes and/or lesions noted and no erythema Other: Warm Neuro: Cranial nerves: Yes Equal, round and reactive pupils present Speech: normal speech Extrem: General: no edema Objective Data Vital Signs Vital Signs: Vital Signs - 24 hr 10/18/21 10:00 10/18/21 11:52 10/18/21 12:00 Temperature 36.4 C L Pulse Rate 100 88 55 L Respiratory Rate 14 Blood Pressure 124/77 Pulse Oximetry 100 10/18/21 14:00 10/18/21 16:00 10/18/21 18:00 Temperature 36.1 C L Pulse Rate 93 92 74 Respiratory Rate 12 Blood Pressure 122/70 Pulse Oximetry 99 10/18/21 20:00 10/19/21 00:00 10/19/21 00:51 Temperature 36.3 C L 36.8 C Pulse Rate 81 71 Respiratory Rate 18 18 Blood Pressure 129/82 118/60 Pulse Oximetry 100 99 99 10/19/21 04:00 10/19/21 05:55 10/19/21 08:00 Temperature 36.8 C 36.7 C Pulse Rate 73 70 94 Respiratory Rate 18 16 Blood Pressure 110/66 139/86 Pulse Oximetry 96 100 Intake/Output Intake/Output: Intake & Output 10/16/21 10/17/21 10/18/21 10/19/21 23:59 23:59 23:59 23:59 Intake Total 2900 4700 3400 1200 Output Total 1200 800 300 Balance 1700 3900 3100 1200 Meds/Results Medications: Active Medications Generic Name Dose Route Start Last Admin Trade Name Freq PRN Reason Stop Dose Admin Acetaminophen 650 mg 10/18/21 09:56 10/18/21 11:00 Acetaminophen 325 Mg Tablet PO 650 mg Q6H PRN Administration Mild Pain (1-3) or Fever Hydrocodone Bitart/Acetaminophen 1 tab 10/17/21 18:57 10/19/21 00:41 Hydrocodone/Acetaminophen (*Crx) 5-325 Mg Tablet PO 1 tab Q6H PRN Administration MODERATE PAIN Metronidazole 500 mg in 100 mls @ 100 mls/hr 10/16/21 11:50 10/19/21 07:15 Flagyl 500 Mg/Iso Soln 100 Ml IVPB Infused Q8HR DIONY Infusion Lactated Ringer's 1,000 mls @ 150 mls/hr 10/19/21 07:40 10/19/21 08:20 Lr - Lactated Ringers Iv IV CONT 150 mls/hr .Q6H40M DIONY Administration Lidocaine 2 patch 10/17/21 09:00 10/18/21 08:04 Lidocaine 5% Patch TRANSDERM 2 patch DAILY DIONY Administration Morphine Sulfate 2 mg 10/17/21 07:46 10/17/21 23:09 Morphine Sulfate (*Crx) 2 Mg/Ml Inj IV PUSH 2 mg Q4H PRN A
--- NOTE | 2021-10-19 13:46 | PC.NURSE ---
pt off floor for colonscopy/endoscopy.
--- NOTE | 2021-10-19 13:47 | PM.IMPN ---
Progress Note: A&P Assessment and Plan (1) Acute GI bleeding: Code(s): K92.2 - Gastrointestinal hemorrhage, unspecified Status: Acute Assessment and Plan: Reportedly patient had 2 bloody bowel movements prior to presentation; he had a total of 4 episodes of bloody stools. Lactic acid level normal. He did have soft BP and was started on IV fluids. Hgb was 13 on admission but dropped to 8-9 range but has since remained stable. Continue close monitoring. GI consulted and appreciate their recommendations. Plan for colonoscopy and EGD today (2) SVT (supraventricular tachycardia): Code(s): I47.1 - Supraventricular tachycardia Status: Acute Assessment and Plan: Patient presented what appears to be an episode of supraventricular tachycardia in the 200 per EMS, without response to adenosine. He was successfully cardioverted and presented in normal sinus rhythm. Patient was previously on Bystolic that is on hold due to hypotension.Resume Bystolic if BP remains stable off IV fluids. (3) Elevated troponin: Code(s): R77.8 - Other specified abnormalities of plasma proteins Status: Acute Assessment and Plan: Likely type 2 FL with nonischemic myocardial injury secondary to supraventricular tachycardia. No ischemic workup is indicated at this juncture. Cardiology following. (4) Essential hypertension: Code(s): I10 - Essential (primary) hypertension Status: Acute Assessment and Plan: Patient was hypotensive with a blood pressure of 90/66 on 10/16. Patient's blood pressure was reviewed on 10/19/21 Blood pressure remains well controlled. Patient on Bystolic monotherapy at home. Will continue current medications. Currently Bystolic remains on hold. Will stop IV fluids (5) Left sided abdominal pain: Code(s): R10.9 - Unspecified abdominal pain Status: Acute Assessment and Plan: The etiology of his abdominal pain is unclear. Patient has had normal colonoscopies in the past. CT scan of the abdomen reveals liquid stool throughout the colon to the level of the rectum, consistent with history of diarrhea. Abdomen exam today showing resolution of the pain. Follow up on EGD/Colonoscopy results. (6) Medial meniscus, posterior horn derangement: Code(s): M23.329 - Other meniscus derangements, posterior horn of medial meniscus, unspecified knee Status: Acute Assessment and Plan: Patient recently admitted for right knee medial meniscus tear and lateral meniscus tear and underwent repair 10/14/21. He was not discharged with anti-platelet medications. He is up walking to the bathroom. Continue oral pain management. (7) Kidney stones, calcium oxalate: Code(s): N20.0 - Calculus of kidney Status: Acute Assessment and Plan: Pt has a previous history of kidney stones. Currently patient is asymptomatic. (8) Sleep apnea in adult: Code(s): G47.30 - Sleep apnea, unspecified Status: Acute Assessment and Plan: Wearing the CPAP intermittently. Encourage continued CPAP use at bedtime and with naps. (9) DVT prophylaxis: Code(s): Z29.9 - Encounter for prophylactic measures, unspecified Status: Acute Assessment and Plan: SCDs Subjective Date/time seen: 10/19/21 13:47 Interval history: 56yo male with recent right knee surgery here for acute GI bleed and had an episode of SVT. Assuming care. Chart reviewed. Patient tolerated the bowel prep last night. His stools were mildly coffee-ground but now are clear yellow color. No further rectal bleeding. He does take Excedrin 3 times a day and has been doing this for a long time. No history of gastric ulcers. He does not take H2 blockers or proton pump inhibitors at home. He is scheduled for colonoscopy and EGD today. Exam Narrative: AF 98.0 139/86 94 16 100% ra Gen - NARD Chest - CTA bilaterally, nml RR CV - RRR
--- NOTE | 2021-10-19 14:13 | WPDANESEPPF ---
Anes - Initial Pre Proc Eval Procedure: Operation Date: 10/19/21 15:30 Proposed Procedures p Esophagogastroduodenoscopy & Colonoscopy - Samm Lang MD Date/Time: 10/19/21 14:13 Surgeon: Amarilis Rayo MD Pre Op Diagnosis: GI bleed/SVT Patient Data Age: 56 Gender: M Height: 1.73 m Weight: 118.8 kg Last Vital Signs Temp 36.4 C 10/19/21 13:51 Pulse 73 10/19/21 13:51 Resp 16 10/19/21 13:51 BP 134/78 10/19/21 13:51 Pulse Ox 98 10/19/21 13:51 Allergies Allergy/AdvReac Type Severity Reaction Status Date / Time celecoxib AdvReac Intermediate Hallucinati Verified 10/14/21 06:18 ng lisinopril AdvReac Intermediate Hallucinati Verified 10/14/21 06:18 ng Home Medications Medication Instructions Recorded Confirmed Type multivitamin 1 tablet PO DAILY 04/09/21 10/16/21 History nebivolol [Bystolic] 5 mg PO QAM 04/09/21 10/16/21 History dextroamphetamine-amphetamine 10 10 mg PO QNOON #30 tablet 09/17/21 10/16/21 Rx mg tablet dextroamphetamine-amphetamine ER 30 mg PO QAM #30 cap 09/17/21 10/16/21 Rx 30 mg 24hr capsule,extend release hydrocodone-acetaminophen 1 tablet PO Q12H PRN #20 tablet 10/14/21 10/16/21 Rx Laboratory Tests 10/18/21 10/19/21 10/19/21 17:17 07:17 07:17 WBC 6.6 K/mm3 K/mm3 (4.5-10.0) RBC 2.99 M/mm3 L M/mm3 (4.6-6.20) Hgb 9.1 g/dL L g/dL 9.3 g/dL L g/dL (14.0-18.0) (14.0-18.0) Hct 26.0 % L % 26.8 % L % (42.0-52.0) (42.0-52.0) MCV 89.6 fl fl (80-100) MCH 31.1 pg pg (26-34) MCHC 34.7 g/dl g/dl (32-36) RDW 12.4 % % (11.5-14.5) Plt Count 179 k/mm3 k/mm3 (150-375) MPV 9.7 fl fl (7.4-10.4) Sodium 135 mmol/L L mmol/L (137-145) Potassium 3.5 mmol/L mmol/L (3.4-5.0) Chloride 106 mmol/L mmol/L (98-107) Carbon Dioxide 24 mmol/L mmol/L (22-30) Anion Gap 5 mmol/L L mmol/L (8-16) BUN 10 mg/dL D mg/dL (9-20) Creatinine 0.90 mg/dL mg/dL (0.7-1.3) Estim Creat Clear Calc 98 ml/min ml/min Estimated GFR > 60 (59 - ) Glucose 120 mg/dL H mg/dL (65-110) Calcium 8.8 mg/dL mg/dL (8.4-10.2) Magnesium 2.4 mg/dL H mg/dL (1.6-2.3) Patient hx anesthesia problems: none Family hx anesthesia problems: none Results Review: All pre-operative results and documents have been reviewed as part of the pre-operative evaluation. [facility] Past Medical History Medical History (Updated 10/19/21 @ 13:51 by Fausto Churchill MD) Acute blood loss anemia BMI 36.0-36.9,adult BMI 37.0-37.9, adult BMI 39.0-39.9,adult Chronic headaches HTN (hypertension) Kidney stones, calcium oxalate Left sided abdominal pain Lesion of skin of scalp Medial meniscus, posterior horn derangement Neuroma digital nerve Numbness and tingling in both hands (~1998) Obesity GABRIELA on CPAP GABRIELA treated with BiPAP Plantar fasciitis Plantar fasciitis of left foot Rectal bleeding SVT (supraventricular tachycardia) Thoracic spondylosis (~2017) Surgical History Surgical History Carpal tunnel syndrome of left wrist Carpal tunnel syndrome of right wrist H/O cystoscopy with a placement of a stent H/O hernia repair umbilical and groin H/O right knee surgery Family History Family History Father Hypertension Family history of diabetes mellitus in first degree relative Family history of coronary artery disease Family history of elevated blood lipids Family history of congestive heart failure Diabetes mellitus Mother Cerebrovascular accident Family history of pancreatic cancer Family history of primary malignant neoplasm of liver Family history of thyroid disease Sibling Family history of thyroid disease Family histo
--- NOTE | 2021-10-19 15:15 | SUR.OPER ---
EGD: end 1511 Colon: 1515
[2021-10-19] MEDS: ACETAMINOPHEN 325 MG TABLET 650 MG PO (16:22)
--- NOTE | 2021-10-19 16:47 | PM.DS ---
DS: Admitting Diagnosis Discharge Date 10/19/21 Admitting Diagnosis Rectal bleeding, chest pain and palpitations DS: Discharge Diagnosis Discharge Diagnosis (1) Acute GI bleeding: Code(s): K92.2 - Gastrointestinal hemorrhage, unspecified Status: Acute Assessment and Plan: Reportedly patient had 2 bloody bowel movements prior to presentation; he had a total of 4 episodes of bloody stools. Lactic acid level normal. He was started on PPI and GI consulted. He did have soft blood pressure and was started on IV fluids. Hgb was 13 on admission but dropped to 8-9 range but has since remained stable. Colonoscopy showed a 6mm sigmoid polyp that was removed, diverticula and hemorrhoids. EGD erosive gastritis with ulcerative changes, gastric ulcers and one benign appearing duodenal ulcer but no signs of bleeding. Probably related to his Excedrin use. Continue Protonix. Okay for discharge. (2) Gastric ulcer: Code(s): K25.9 - Gastric ulcer, unspecified as acute or chronic, without hemorrhage or perforation Status: Acute Assessment and Plan: As above (3) Erosive gastritis with hemorrhage: Code(s): K29.61 - Other gastritis with bleeding Status: Acute Assessment and Plan: As above (4) Duodenal ulcer: Code(s): K26.9 - Duodenal ulcer, unspecified as acute or chronic, without hemorrhage or perforation Status: Acute Assessment and Plan: As above (5) SVT (supraventricular tachycardia): Code(s): I47.1 - Supraventricular tachycardia Status: Acute Assessment and Plan: Patient found to have what appears to be an episode of supraventricular tachycardia in the 200 per EMS, without response to adenosine. He was successfully cardioverted and presented to the ED in normal sinus rhythm. EKG showing sinus tachycardia with poor R wave progression. Cardiology consulted. Patient was on Bystolic that was on hold due to hypotension. BP improved so Bystolic to be resumed at discharge. (6) Elevated troponin: Code(s): R77.8 - Other specified abnormalities of plasma proteins Status: Acute Assessment and Plan: Likely type 2 FL with nonischemic myocardial injury secondary to supraventricular tachycardia. No ischemic workup is indicated at this juncture. Cardiology followed along (7) Essential hypertension: Code(s): I10 - Essential (primary) hypertension Status: Acute Assessment and Plan: Patient was hypotensive with a blood pressure of 90/66 on 10/16. Patient's blood pressure was monitored closely and has remained well controlled now. Patient on Bystolic monotherapy at home. (8) Left sided abdominal pain: Code(s): R10.9 - Unspecified abdominal pain Status: Acute Assessment and Plan: The etiology of his abdominal pain remained unclear. CT scan of the abdomen reveals liquid stool throughout the colon to the level of the rectum, consistent with history of diarrhea. Stool culture negative. Abdomen exam showing resolution of the pain. EGD/Colonoscopy results as mentioned. (9) Medial meniscus, posterior horn derangement: Code(s): M23.329 - Other meniscus derangements, posterior horn of medial meniscus, unspecified knee Status: Acute Assessment and Plan: Patient recently admitted for right knee medial meniscus tear and lateral meniscus tear and underwent repair 10/14/21. He was not discharged with anti-platelet medications. He is currently up walking to the bathroom. Continue oral pain management. (10) Kidney stones, calcium oxalate: Code(s): N20.0 - Calculus of kidney Status: Acute Assessment and Plan: Pt has a previous history of kidney stones. Currently patient is asymptomatic. (11) Sleep apnea in adult: Code(s): G47.30 - Sleep apnea, unspecified Status: Acute Assessment and Plan: Wearing the CPAP intermittently. En
== END 2021-10-19 17:49 | disposition home or self-care (01) ==
LOC: ANHED 08:33 → ANHIMU 10:48 → ANH3MEDSUR 10-19 07:15 → ANHIMU 10-20 14:56
PROVIDERS: General Practice; Internal Medicine; Internal Medicine Gastroenterology; Admitting Provider Internal Medicine; Emergency Provider Emergency Medicine; PCP Family Medicine; Visit Provider Internal Medicine
PROC: 0DJ08ZZ Inspection of Upper Intestinal Tract, Via Natural or Artificial Opening Endoscopic (ICD-10-PCS; CPT 43235; principal; 2021-10-19 15:30)
DX: K62.5 Hemorrhage of anus and rectum (principal); K29.61 Other gastritis with bleeding; K25.9 Gastric ulcer, unspecified as acute or chronic, without hemorrhage or perforation; K26.9 Duodenal ulcer, unspecified as acute or chronic, without hemorrhage or perforation; K63.5 Polyp of colon; K57.30 Diverticulosis of large intestine without perforation or abscess without bleeding; K64.8 Other hemorrhoids; R77.8 Other specified abnormalities of plasma proteins; R55 Syncope and collapse; I10 Essential (primary) hypertension; G47.33 Obstructive sleep apnea (adult) (pediatric); R07.9 Chest pain, unspecified; D50.0 Iron deficiency anemia secondary to blood loss (chronic); Z87.891 Personal history of nicotine dependence; Z79.899 Other long term (current) drug therapy
CPT/HCPCS: 43239; 45385; 36415; 71045; 74177; 74250; 80048; 80053; 80307; 83605; 83690; 83735; 84484; 85014; 85018; 85025; 85027; 85610; 85730; 86850; 86900; 86901; 87040; 87045; 87081; 87324; 87427; 88305; 89055; 93005; 96361; 96365; 96366; 96367; 96374; 96375; 96376; 99285; A9270; C9113; G0378; J0131; J2270; J2704; J7030; J7120; Q9967

== ENCOUNTER 2022-01-26 00:41 | Day surgery (SDC) | payer OTHER, SELFPAY ==
[2022-01-15 12:25] VITALS: BMI 33.5
[2022-01-26 09:47] VITALS: BP 120/79; PULSE 63; RESP 16; TEMP 36.4; O2SAT 99; BMI 36.1
[2022-01-26] MEDS: LACTATED RINGERS 1,000 ML 150 ML IV CONT (09:58)
--- NOTE | 2022-01-26 10:07 | WPDGICN ---
Assessment and Plan Assessment and plan (1) Gastric ulcer: Code(s): K25.9 - Gastric ulcer, unspecified as acute or chronic, without hemorrhage or perforation Status: Acute Assessment and Plan: Patient was found to have gastric ulcer in September 2021. Has been maintained on pantoprazole 40mg p.o. b.i.d. and has now avoided Excedrin. Plan is for surveillance EGD at this time. If ulcer is healed decreasing pantoprazole to p.r.n. doses continue to avoid NSAIDs is encouraged. Tylenol as encourage for pain. (2) Duodenal ulcer: Code(s): K26.9 - Duodenal ulcer, unspecified as acute or chronic, without hemorrhage or perforation Status: Acute Assessment and Plan: Patient had duodenal ulcer in September 2021. Likely healed at this time this will be documented by follow-up EGD. Continue to avoid NSAIDs. (3) History of colon polyps: Code(s): Z86.010 - Personal history of colonic polyps Status: Acute Assessment and Plan: Benign colon polyp removed in September 2021. Plan is for surveillance colonoscopy in 5 years. GI Consult Note Consult date/time: 01/26/22 10:07 HPI: Terry Chirstianson is a 56 year old male Presents for follow-up EGD. Patient presented the hospital in September of 2021. Colonoscopy revealed diverticulosis and small benign polyp. Subsequent EGD revealed gastric and duodenal ulcers. Patient at that time had been taking large quantities of Excedrin. Since discharge Excedrin was discontinued. He has been maintained on pantoprazole 40mg p.o. b.i.d.. He denies any heartburn pain or signs of bleeding. He feels good. Tolerates diet without difficulty. Patient presents sense today for EGD. Family history is noncontributory. Review of Systems Review of Systems: All systems reviewed & are unremarkable except as noted in HPI and below [facility] Past Medical History Medical History Acute blood loss anemia BMI 36.0-36.9,adult BMI 37.0-37.9, adult BMI 39.0-39.9,adult Chronic headaches HTN (hypertension) Insomnia Kidney stones, calcium oxalate Left sided abdominal pain Lesion of skin of scalp Medial meniscus, posterior horn derangement Neuroma digital nerve Numbness and tingling in both hands (~1998) Obesity GABRIELA on CPAP GABRIELA treated with BiPAP Plantar fasciitis Plantar fasciitis of left foot Rectal bleeding SVT (supraventricular tachycardia) Thoracic spondylosis (~2017) Surgical History Surgical History Carpal tunnel syndrome of left wrist Carpal tunnel syndrome of right wrist H/O cystoscopy with a placement of a stent H/O hernia repair umbilical and groin H/O right knee surgery Family History Family History Father Hypertension Family history of diabetes mellitus in first degree relative Family history of coronary artery disease Family history of elevated blood lipids Family history of congestive heart failure Diabetes mellitus Mother Cerebrovascular accident Family history of pancreatic cancer Family history of primary malignant neoplasm of liver Family history of thyroid disease Sibling Family history of thyroid disease Family history of elevated blood lipids Family history of diabetes mellitus in first degree relative Sibling Diabetes mellitus Sibling Diabetes mellitus Other Family history of alcoholism Family history of arthritis Medial meniscus, posterior horn derangement Social History Social History Smoking packs per day: 1 Smoking cigarettes per day: 20.0 Years smoked: 20 Smoking pack-years: 20.00 Smoking status: Former smoker Tobacco type: cigarettes Additional smoking assessment comments: STATES QUIT 2004 Alcohol intake: never Substance use: never Substance use t
--- NOTE | 2022-01-26 10:47 | WPDANESEPPF ---
Anes - Initial Pre Proc Eval Procedure: Operation Date: 01/26/22 11:00 Proposed Procedures p Esophagogastroduodenoscopy - Terry Smith MD Date/Time: 01/26/22 10:47 Surgeon: Terry Smith MD Pre Op Diagnosis: Gastric ulcer, GI bleed Patient Data Age: 56 Gender: M Height: 1.73 m Weight: 107.8 kg Last Vital Signs Temp 97.6 F 01/26/22 09:47 Pulse 63 01/26/22 09:47 Resp 16 01/26/22 09:47 BP 120/79 01/26/22 09:47 Pulse Ox 99 01/26/22 09:47 Allergies Allergy/AdvReac Type Severity Reaction Status Date / Time celecoxib AdvReac Intermediate Hallucinati Verified 01/26/22 09:46 ng lisinopril AdvReac Intermediate Hallucinati Verified 01/26/22 09:46 ng Home Medications Medication Instructions Recorded Confirmed Type multivitamin 1 tablet PO DAILY 04/09/21 01/26/22 History pantoprazole 40 mg tablet,delayed 40 mg PO BID 30 Days #180 tablet 11/16/21 01/26/22 Rx release nebivolol 5 mg tablet 5 mg PO QAM #90 tablet 11/28/21 01/26/22 Rx trazodone 100 mg PO HS 01/15/22 01/26/22 History dextroamphetamine-amphetamine 10 10 mg PO QNOON #30 tablet 01/25/22 01/26/22 Rx mg tablet dextroamphetamine-amphetamine ER 30 mg PO QAM #30 cap 01/25/22 01/26/22 Rx 30 mg 24hr capsule,extend release Patient hx anesthesia problems: none Family hx anesthesia problems: none Results Review: All pre-operative results and documents have been reviewed as part of the pre-operative evaluation. [facility] Past Medical History Medical History Acute blood loss anemia BMI 36.0-36.9,adult BMI 37.0-37.9, adult BMI 39.0-39.9,adult Chronic headaches HTN (hypertension) Insomnia Kidney stones, calcium oxalate Left sided abdominal pain Lesion of skin of scalp Medial meniscus, posterior horn derangement Neuroma digital nerve Numbness and tingling in both hands (~1998) Obesity GABRIELA on CPAP GABRIEAL treated with BiPAP Plantar fasciitis Plantar fasciitis of left foot Rectal bleeding SVT (supraventricular tachycardia) Thoracic spondylosis (~2018) Surgical History Surgical History Carpal tunnel syndrome of left wrist Carpal tunnel syndrome of right wrist H/O cystoscopy with a placement of a stent H/O hernia repair umbilical and groin H/O right knee surgery Family History Family History Father Hypertension Family history of diabetes mellitus in first degree relative Family history of coronary artery disease Family history of elevated blood lipids Family history of congestive heart failure Diabetes mellitus Mother Cerebrovascular accident Family history of pancreatic cancer Family history of primary malignant neoplasm of liver Family history of thyroid disease Sibling Family history of thyroid disease Family history of elevated blood lipids Family history of diabetes mellitus in first degree relative Sibling Diabetes mellitus Sibling Diabetes mellitus Other Family history of alcoholism Family history of arthritis Medial meniscus, posterior horn derangement Social History Social History Smoking packs per day: 1 Smoking cigarettes per day: 20.0 Years smoked: 20 Smoking pack-years: 20.00 Smoking status: Former smoker Tobacco type: cigarettes Additional smoking assessment comments: STATES QUIT 2004 Alcohol intake: never Substance use: never Substance use type: does not use Living arrangements: with family 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
[2022-01-26 10:56] VITALS: BP 111/78; PULSE 65; RESP 24; O2SAT 96
[2022-01-26 11:06] VITALS: BP 109/73; PULSE 57; RESP 16; O2SAT 97
[2022-01-26 11:16] VITALS: BP 111/81; PULSE 53; RESP 16; O2SAT 98
== END 2022-01-26 11:20 | disposition home or self-care (01) ==
PROVIDERS: PCP Family Medicine; Visit Provider Internal Medicine Gastroenterology
PROC: 0DJ08ZZ Inspection of Upper Intestinal Tract, Via Natural or Artificial Opening Endoscopic (ICD-10-PCS; CPT 43235; principal; 2022-01-26 11:00)
DX: Z09 Encounter for follow-up examination after completed treatment for conditions other than malignant neoplasm (principal); Z87.11 Personal history of peptic ulcer disease; Z86.010 Personal history of colon polyps; I10 Essential (primary) hypertension; G47.33 Obstructive sleep apnea (adult) (pediatric); I47.1 Supraventricular tachycardia; M47.814 Spondylosis without myelopathy or radiculopathy, thoracic region; Z68.36 Body mass index [BMI] 36.0-36.9, adult; Z87.891 Personal history of nicotine dependence
CPT/HCPCS: 43239; 87081; J2704; J7120

== ENCOUNTER 2022-05-16 04:11 | Emergency (ER) | payer OTHER, SELFPAY ==
[2022-05-16] VITALS (17 sets, daily range): BP systolic 117–128; BP diastolic 76–84; PULSE 65–80; RESP 17–20; TEMP 36.4; O2SAT 91–99
--- NOTE | ~2022-05-16 | CT_ITS ---
EXAMINATION: CT abdomen pelvis w con INDICATION: Left-sided abdominal pain TECHNIQUE: Computed tomographic images of the abdomen and pelvis were obtained after the administrati on of 100 cc of Omnipaque 300 intravenous contrast. The dose-length product (DLP) was 1420.40 mGy-cm. Automated exposure control and iterative reconstruction technique were employed. COMPARISON: None available FINDINGS: Minimal dependent atelectasis is present in the lung bases. The heart size is normal. There is mild splenomegaly. Punctate calcifications of the spleen are consistent with old granulomatous di sease. The liver is diffusely low in attenuation when compared with the spleen, consistent with hepat ic steatosis. The pancreas and adrenal glands are normal. There is mild distention of the gallbladder . The left kidney is unremarkable. 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 No pathologically enlarged abdominal or pelvic lymph nodes are identified. There is no free intraperiton eal gas or evidence of bowel obstruction. Colonic diverticulosis is present without evidence of diver ticulitis. The appendix is normal. There are likely changes right inguinal hernia repair. A moderate volume of colonic stool is present. There is mild lumbar spondylosis. IMPRESSION: 1. Mild distention of the gallbladder. Recommend correlation for right upper quadrant tenderness. No CT correlate for left abdominal pain. Reviewed, dictated and finalized at location A. IMPRESSION: 1. Mild distention of the gallbladder. Recommend correlation for right upper qu adrant tenderness. No CT correlate for left abdominal pain.
--- NOTE | 2022-05-16 04:30 | ED.GENADULT ---
HPI - General Adult General Chief complaint: Abdominal Pain Stated complaint: LUQ pain Time Seen by Provider: 05/16/22 04:22 History of Present Illness HPI narrative: Patient 57-year-old gentleman who presents to the emergency department with chief complaint of left upper quadrant pain. Patient states the pain began approximately 10 PM reports that it radiates to his back patient reports not improved by anything reports it is worsened by movement. Patient states that he has history of GI bleeds and history of kidney stones before in the past. Patient reports has had hernia surgery on his abdomen Related Data Home Medications Medication Instructions Recorded Confirmed multivitamin 1 tablet PO DAILY 04/09/21 01/26/22 Allergies Allergy/AdvReac Type Severity Reaction Status Date / Time celecoxib AdvReac Intermediate Hallucinati Verified 05/16/22 04:15 ng lisinopril AdvReac Intermediate Hallucinati Verified 05/16/22 04:15 ng Review of Systems Review of Systems: A 10 system review of systems was completed on the patient and is negative except for what is stated in the HPI. Nursing and ancillary documentation was reviewed. [facility] Past Medical History Medical History Acute blood loss anemia BMI 36.0-36.9,adult BMI 37.0-37.9, adult BMI 39.0-39.9,adult Chronic headaches HTN (hypertension) Insomnia Kidney stones, calcium oxalate Left sided abdominal pain Lesion of skin of scalp Medial meniscus, posterior horn derangement Neuroma digital nerve Numbness and tingling in both hands (~1998) Obesity GABRIELA on CPAP GABRIELA treated with BiPAP Plantar fasciitis Plantar fasciitis of left foot Rectal bleeding SVT (supraventricular tachycardia) Thoracic spondylosis (~2017) Surgical History Surgical History Carpal tunnel syndrome of left wrist Carpal tunnel syndrome of right wrist H/O cystoscopy with a placement of a stent H/O hernia repair umbilical and groin H/O right knee surgery Family History Family History Father Hypertension Family history of diabetes mellitus in first degree relative Family history of coronary artery disease Family history of elevated blood lipids Family history of congestive heart failure Diabetes mellitus Mother Cerebrovascular accident Family history of pancreatic cancer Family history of primary malignant neoplasm of liver Family history of thyroid disease Sibling Family history of thyroid disease Family history of elevated blood lipids Family history of diabetes mellitus in first degree relative Sibling Diabetes mellitus Sibling Diabetes mellitus Other Family history of alcoholism Family history of arthritis Medial meniscus, posterior horn derangement Social History Social History Smoking packs per day: 1 Smoking cigarettes per day: 20.0 Years smoked: 20 Smoking pack-years: 20.00 Smoking status: Former smoker Tobacco type: cigarettes Additional smoking assessment comments: STATES QUIT 2004 Alcohol intake: never Substance use: never Substance use type: does not use 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
[2022-05-16] MEDS: HYDROmorphone HCL INJ (*CRX) 1 MG/ML SYR IV PUSH (04:33)
[2022-05-16] MEDS: SODIUM CHLORIDE 0.9% IV 1,000 ML 999 ML IV CONT (04:33)
[2022-05-16] MEDS: ONDANSETRON INJ 4 MG/2 ML VIAL IV PUSH (04:33)
[2022-05-16 04:43] LABS: Basophils Absolute Auto 0.1 K/mm3 (0.0-0.1); Eosinophils Absolute Auto 0.3 K/mm3 (0-0.3); Eosinophils Percent Auto 6.3 % (0-4.4); Hematocrit 42.5 % (42.0-52.0); Hemoglobin 14.2 g/dL (14.0-18.0); Immature Granulocyte Absolute 0.01 K/mm3 (0.00-0.031); Immature Granulocyte Percent A 0.2 % (0-0.5); Lymphocytes Absolute Auto 1.56 K/mm3 (0.9-3.2); Lymphocytes Percent Auto 30.8 % (18.3-44.2); Mean Corpuscular HGB Conc 33.4 g/dl (32-36); Mean Corpuscular Hemoglobin 30.1 pg (26-34); Mean Platelet Volume 9.3 fl (7.4-10.4); Monocytes Absolute Auto 0.5 K/mm3 (0.1-0.6); Monocytes Percent Auto 10.3 % (2.6-8.5); Neutrophils Absolute Auto 2.6 K/mm3 (1.3-6.7); Neutrophils Percent Auto 51.4 % (45.5-73.1); Platelet Count Result 177 k/mm3 (150-375); Red Blood Count 4.72 M/mm3 (4.6-6.20); Red Cell Distribution Width 12.4 % (11.5-14.5); White Blood Count 5.1 K/mm3 (4.5-10.0)
[2022-05-16 04:52] LABS: Alanine Aminotransferase 27 U/L (6-50); Albumin Level 4.2 g/dL (3.5-5.1); Alkaline Phosphatase 69 U/L (38-126); Anion Gap 7 mmol/L (8-16); Aspartate Amino Transferase 26 U/L (17-59); Bilirubin,Total 0.3 mg/dL (0.2-1.3); Blood Urea Nitrogen 21 mg/dL (9-20); Calcium 9.1 mg/dL (8.4-10.2); Carbon Dioxide 26 mmol/L (22-30); Chloride 107 mmol/L (98-107); Estimated CRCL calculation 64 ml/min; Estimated Glomerular Filt Rate 57; Glucose 110 mg/dL (65-110); Lipase 183 U/L (23-300); Potassium 3.9 mmol/L (3.4-5.0); Sodium 140 mmol/L (137-145)
--- NOTE | 2022-05-16 05:11 | PC.NURSE ---
Patient in CT at this time.
[2022-05-16 06:00] LABS: Appearance Urine Clear (Clear); Bilirubin Urine Negative (Negative); Blood Urine Negative (Negative); Color Urine Yellow (Yellow); Glucose Urine UA Negative (Negative); Ketones Urine Negative (Negative); Leukocyte Esterase Ur Negative LEU/UL (Negative); Nitrate Urine Negative (Negative); Protein Urine Negative (Negative); Urobilinogen Urine 0.2 mg/dL (<2.0)
[2022-05-16 06:06] LABS: Add Urine Microscopic? NO
== END 2022-05-16 06:48 | disposition home or self-care (01) ==
PROVIDERS: Emergency Provider Emergency Medicine; PCP Family Medicine
DX: R10.84 Generalized abdominal pain (principal); I10 Essential (primary) hypertension; Z87.442 Personal history of urinary calculi; G47.33 Obstructive sleep apnea (adult) (pediatric); E66.9 Obesity, unspecified; Z68.35 Body mass index [BMI] 35.0-35.9, adult; Z87.891 Personal history of nicotine dependence
CPT/HCPCS: 36415; 74177; 80053; 81003; 83605; 83690; 85025; 96361; 96374; 96375; 99284; J1170; J2405; J7030; Q9967

== ENCOUNTER 2022-08-27 13:52 | Outpatient (CLI) | payer OTHER, SELFPAY ==
--- NOTE | 2022-08-27 14:36 | ECG_ITS ---
Measurements Intervals [place] Rate: 69 P: 9 KS: 138 QRS: -18 QRSD: 96 T: -3 QT: 382 QTc: 410 Interpretive Statements SINUS RHYTHM LOW QRS VOLTAGE IN PRECORDIAL LEADS [QRS DEFLECTION < 1.0 mV IN CHEST LEADS] POOR R-WAVE PROGRESSION COMPARED TO ECG 10/16/2021 06:19:55 HEART RATE IS REDUCED NO OTHER CHANGE Electronically Signed On 08-28-2022 8:04:09 CDT by Mark Pollock M.D.
[2022-08-27 14:56] LABS: Basophils Absolute Auto 0.1 K/mm3 (0.0-0.1); Eosinophils Absolute Auto 0.3 K/mm3 (0-0.3); Eosinophils Percent Auto 4.9 % (0-4.4); Hematocrit 44.1 % (42.0-52.0); Immature Granulocyte Absolute 0.02 K/mm3 (0.00-0.031); Immature Granulocyte Percent A 0.3 % (0-0.5); Lymphocytes Absolute Auto 1.28 K/mm3 (0.9-3.2); Mean Corpuscular Hemoglobin 30.5 pg (26-34); Mean Corpuscular Volume 89.8 fl (80-100); Mean Platelet Volume 9.4 fl (7.4-10.4); Monocytes Absolute Auto 0.6 K/mm3 (0.1-0.6); Monocytes Percent Auto 9.2 % (2.6-8.5); Neutrophils Absolute Auto 3.9 K/mm3 (1.3-6.7); Neutrophils Percent Auto 63.6 % (45.5-73.1); Platelet Count Result 180 k/mm3 (150-375); Red Blood Count 4.91 M/mm3 (4.6-6.20); Red Cell Distribution Width 12.4 % (11.5-14.5); White Blood Count 6.1 K/mm3 (4.5-10.0)
[2022-08-27 15:00] LABS: Add Urine Microscopic? NO; Appearance Urine Clear (Clear); Bilirubin Urine Negative (Negative); Blood Urine Negative (Negative); Color Urine Yellow (Yellow); Glucose Urine UA Negative (Negative); Ketones Urine Negative (Negative); Leukocyte Esterase Ur Negative LEU/UL (Negative); Nitrate Urine Negative (Negative); Protein Urine Negative (Negative); Urobilinogen Urine Negative mg/dL (<2.0)
[2022-08-27 15:01] LABS: Specific Grav Ur 1.032 (1.001-1.035)
[2022-08-27 15:23] LABS: INR 1.1; Prothrombin Time 13.4 Seconds (11.1-14.7)
[2022-08-27 15:29] LABS: Albumin Level 4.4 g/dL (3.5-5.1); Anion Gap 7 mmol/L (8-16); Blood Urea Nitrogen 16 mg/dL (9-20); Calcium 9.5 mg/dL (8.4-10.2); Carbon Dioxide 29 mmol/L (22-30); Chloride 107 mmol/L (98-107); Estimated Glomerular Filt Rate > 60; Glucose 105 mg/dL (65-110); Sodium 143 mmol/L (137-145)
[2022-08-27 15:45] LABS: Urine Cotinine NEGATIVE
[2022-08-27 16:42] LABS: Hemoglobin A1C 6.1 % (<5.7)
== END 2022-08-27 13:53 | disposition home or self-care (01) ==
LOC: ANHSURGERY 13:55
PROVIDERS: PCP Family Medicine; Visit Provider Orthopaedic Surgery
DX: Z01.818 Encounter for other preprocedural examination (principal); M17.11 Unilateral primary osteoarthritis, right knee; Z51.81 Encounter for therapeutic drug level monitoring; Z79.899 Other long term (current) drug therapy
CPT/HCPCS: 80048; 80307; 81003; 82040; 83036; 85025; 85610; 85730; 86850; 86900; 86901; 87081; 93005

== ENCOUNTER 2022-09-07 01:14 | Day surgery (SDC) | payer OTHER, SELFPAY ==
[2022-08-27 14:00] VITALS: BMI 37.7
--- NOTE | 2022-08-27 14:15 | PC.NURSE ---
Report to the Outpatient Waiting Room, entrance under the green pavilion located off [facility], at time _0830 on date 09/07/22 . OR Time: __1030 . Time changes happen often and if your time is changed the preop area will call you the afternoon before. - You and your visitor will be asked to self-screen and do not enter if you have any COVID symptoms. - We encourage only one visitor and NO visitors under age 16 are allowed at this time. Your visitor will receive communication by the phone number that is given day of service. - The patient visitor is requested to social distance or may leave the building when not with patient due to restrictions. - A mask is required within the hospital. Patients may have clear liquids (water, carbonated beverages, clear teas, apple juice) until 3 hours prior to surgery with a maximum of 20 ounces. - No food from midnight until time of surgery - Infants may have breast milk until 4 hours before surgery, formula 6 hours prior to surgery. - Children will be allowed to drink immediately following surgery. If applicable, please bring a bottle or sippy cup to assist with drinking. Juice, water, soda, and popsicles are readily available. For infants on formula, please bring formula the day of surgery. Pacifiers are allowed. Take the following medications with a SIP of water the morning of surgery: ___NEBIVOLOL Medications to discontinue per physician ____MULTI VITAMIN 3 DAYS PRE OP Date to take last dose___09/03/22 Please no make-up, nail italian, hairspray, perfume, deodorant, or body powder the day of surgery. No jewelry (including any body piercings) or valuables the day of surgery, leave them at home. Please take a shower or bath the night before, or the morning of, surgery with an antibacterial soap. Wear comfortable, loose fitting clothing. Children are encouraged to wear pajamas. - Jewelry must be removed prior to entering the operating room. Rings and piercings that are not removed may be cut off. - The hospital will not accept responsibility for valuables. - Please leave all valuables, including medications, at home the day of surgery. If you are going home after surgery, a licensed cdl team truck driver must drive you home. - NO public transportation without another adult. - We recommend that an adult stay with you for 24 hours following discharge. - We also recommend that you do not drive, make important decision, drink alcoholic beverages, or take any drugs that were not prescribed by your health care provider for at least 24 hours after your discharge time. Follow any additional instructions given to you from your surgeon. If you or anyone in your household have experienced Covid symptoms in the past week, please notify your surgeon or the nurse liaison at the phone number below for possible testing. VERBAL AND WRITTEN instructions given to ___PATIENT and asked if any additional questions and then verbalized understanding. Patient advised to call surgeon office or pre surgery nurse liaison [phone] if any additional questions.
[2022-08-27 14:33] VITALS: BP 133/88; PULSE 73; RESP 18; TEMP 37.3; O2SAT 98
[2022-09-07] VITALS (15 sets, daily range): BP systolic 103–133; BP diastolic 59–91; PULSE 60–91; RESP 12–17; TEMP 36.1–37.1; O2SAT 94–100
--- NOTE | ~2022-09-07 | XR_ITS ---
EXAMINATION: XR knee RT 2V DATE: 09/07/2022 15:10 INDICATION: Total right knee arthroplasty. Postop. TECHNIQUE: 2 views of right knee were obtained. COMPARISON: Right knee radiographs 07/15/2022 FINDINGS: There is a total right knee arthroplasty without patellar resurfacing in near-anatomic alig nment. There are changes of osteophyte resection of patella. No fracture. There is gas in the knee brandyn int and soft tissues, consistent with recent surgery. Anterior skin vida are noted. IMPRESSION: 1. Total right knee arthroplasty in near-anatomic alignment. Reviewed, dictated and finalized at location A.
--- NOTE | 2022-09-07 07:19 | WPDHPUPDATE1 ---
History and Physical Update Update Date/Time: 09/07/22 07:19 History and Physical has been reviewed, including an updated exam of the patient. There are NO changes in the patient's condition. Risks, benefits, and alternatives have been discussed and questions answered. Patient agrees to proceed with procedure.
[2022-09-07] MEDS: ACETAMINOPHEN 500 MG TABLET 1000 MG PO (09:00)
[2022-09-07] MEDS: TRANEXAMIC ACID 1,000MG/ISO100 1,000 MG/100 ML BAG 200 MG IVPB (09:30)
--- NOTE | 2022-09-07 09:34 | WPDANESEPPF ---
Anes - Initial Pre Proc Eval Procedure: Operation Date: 09/07/22 10:30 Proposed Procedures p Right Total Knee Arthroplasty - Seth Balbuena MD Date/Time: 09/07/22 09:34 Surgeon: Seth Balbuena MD Pre Op Diagnosis: Right Knee DJD Patient Data Age: 57 Gender: M Height: 1.73 m Weight: 114.5 kg Last Vital Signs Temp 36.6 C 09/07/22 09:13 Pulse 60 09/07/22 09:13 Resp 14 09/07/22 09:13 BP 118/76 09/07/22 09:13 Pulse Ox 98 09/07/22 09:13 O2 Del Method Room Air 09/07/22 09:13 Allergies Allergy/AdvReac Type Severity Reaction Status Date / Time celecoxib AdvReac Intermediate Hallucinati Verified 09/07/22 09:21 ng lisinopril AdvReac Intermediate Hallucinati Verified 09/07/22 09:21 ng Home Medications Medication Instructions Recorded Confirmed Type multivitamin 1 tablet PO DAILY 04/09/21 08/27/22 History pantoprazole 40 mg tablet,delayed 40 mg PO BID 1 month #180 tabs 11/16/21 08/27/22 Rx release (Protonix) trazodone 100 mg tablet 200 mg PO HS #180 tabs 07/20/22 08/27/22 Rx chlorhexidine gluconate 4 % 1 applic topical ONCE #237 mL 08/27/22 Rx topical liquid (Hibiclens) dextroamphetamine-amphetamine 10 10 mg PO QNOON #30 tabs 08/27/22 08/27/22 Rx mg tablet (Adderall) dextroamphetamine-amphetamine ER 30 mg PO QAM #30 caps 08/27/22 08/27/22 Rx 30 mg 24hr capsule,extend release (Adderall XR) nebivolol 5 mg tablet (Bystolic) 5 mg PO QAM #90 tabs 09/01/22 09/07/22 Rx Patient hx anesthesia problems: none Family hx anesthesia problems: none Results Review: All pre-operative results and documents have been reviewed as part of the pre-operative evaluation. [facility] Past Medical History Medical History Acute blood loss anemia BMI 36.0-36.9,adult BMI 37.0-37.9, adult BMI 39.0-39.9,adult Chronic headaches HTN (hypertension) Insomnia Kidney stones, calcium oxalate Left sided abdominal pain Lesion of skin of scalp Medial meniscus, posterior horn derangement Neuroma digital nerve Numbness and tingling in both hands (~1998) Obesity GABRIELA on CPAP GABRIELA treated with BiPAP Plantar fasciitis Plantar fasciitis of left foot Rectal bleeding Small ear canal SVT (supraventricular tachycardia) Thoracic spondylosis (~2017) Surgical History Surgical History Carpal tunnel syndrome of left wrist Carpal tunnel syndrome of right wrist H/O cystoscopy with a placement of a stent H/O hernia repair umbilical and groin H/O right knee surgery Family History Family History Father Hypertension Family history of diabetes mellitus in first degree relative Family history of coronary artery disease Family history of elevated blood lipids Family history of congestive heart failure Diabetes mellitus Mother Cerebrovascular accident Family history of pancreatic cancer Family history of primary malignant neoplasm of liver Family history of thyroid disease Sibling Family history of thyroid disease Family history of elevated blood lipids Family history of diabetes mellitus in first degree relative Sibling Diabetes mellitus Sibling Diabetes mellitus Other Family history of alcoholism Family history of arthritis Medial meniscus, posterior horn derangement Social History Social History Smoking packs per day: 1 Smoking cigarettes per day: 20.0 Years smoked: 20 Smoking pack-years: 20.00 Smoking status: Former smoker Tobacco type: cigarettes Additional smoking assessment comments: STATES QUIT 2004 Alcohol intake: never Substance use: never Substance use type: does not use 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
[2022-09-07] MEDS: LACTATED RINGERS 1,000 ML 30 ML IV CONT ×2 (09:37→14:49)
--- NOTE | 2022-09-07 10:19 | WPDANESPNB ---
Anes - Peripheral Nerve Block Date/Time: 09/07/22 10:19 I have discussed with the patient/family/POA the placement of a peripheral nerve block for post-operative pain management, including associated risks, benefits, complications, and side effects. Alternative methods of post-operative analgesia were detailed. Questions were solicited and answers provided to the satisfaction of the patient/family/POA. Time-Out: A pre-procedural Time-Out was completed immediately before starting the procedure and confirmed: Patient Identification, Site, Procedure, Patient Position and the Availability of Requisite Equipment. Clinical Indications: Acute post-operative pain management requested by the operative surgeon. Nerve Block Insertion Note Anes-nerve block: adductor canal right Patient position: supine Skin prep: chlorhexidine Needle: 22 gauge, stimulating, insulated echogenic needle. Needle length: 80 mm Technique: ultrasound Injectate: bupivacaine 0.5% with epi 5 mcg/ml (30cc - no epi) Observations: tolerated well Complications: none Procedure start time:: 1102 Procedure end time:: 110
[2022-09-07] MEDS: ceFAZolin 2 GM/D5W 50 ML 2 GM/50 ML BAG IVPB ×2 (11:58→20:17)
[2022-09-07] MEDS: GENTAMICIN BONE CEMENT REFOBACIN 1 EACH TOPICAL (12:52)
[2022-09-07] MEDS: KETOROLAC 15 MG/ML VIAL (*BKC) IV PUSH ×2 (12:57→18:29)
[2022-09-07] MEDS: TRANEXAMIC ACID 1,000 MG/10 ML AMPUL 1000 MG IV PUSH (13:40)
[2022-09-07] MEDS: fentaNYL CITRATE INJ (*CRX) 100 MCG/2 ML VIAL 25 MCG IV PUSH ×8 (15:10→15:40)
--- NOTE | 2022-09-07 15:22 | W.PM.PROC2 ---
Procedure Note - Detailed Date of Procedure 09/07/22 Pre-op Diagnosis Right Knee DJD Post-op Diagnosis Same Procedure Performed R TKA Surgeon Seth Balbuena MD Anesthesia General Description of Procedure THE RIGHT KNEE WAS PREPPED AND DRAPED IN THE STERILE FASHION. THERE WAS A 10 DEGREE FLEXION CONTRACTURE. A MIDLINE SKIN INCISION WAS MADE. A MEDIAL PARAPATELLAR ARTHROTOMY WAS MADE. THE PATELLA WAS EVERTED. THERE WAS TRICOMPARTMENT DJD. THERE WAS MINIMAL PATELLA DJD. AN INTRAMEDULLARY ABILIO WAS PLACED IN THE FEMUR. A DISTAL FEMORAL CUT WAS MADE IN 5 DEGREES OF VALGUS REMOVING APPROXIMATELY 9 MM OF BONE FROM THE DISTAL FEMUR. THE FEMUR WAS SIZED TO 67.5. A 67.5 FEMORAL CUTTING BLOCK WAS PLACED IN 3 DEGREES OF EXTERNAL ROTATION AND IN ALIGNMENT WITH ALIS'S LINE AND THE TRANSEPICONDYLAR AXIS. ANTERIOR POSTERIOR AND CHAMFER CUTS WERE MADE. THE CUTS WERE EXCELLENT. NEXT AN INTRAMEDULLARY CUTTING GUIDE WAS PLACED IN THE TIBIA. A TRANS TIBIAL CUT WAS MADE ALONG THE LONG AXIS OF THE TIBIA. APPROXIMATELY 10 MM OF BONE WAS REMOVED FROM THE HIGH SIDE OF THE TIBIA. THE TIBIA WAS THEN PLANED TO A SMOOTH SURFACE. POSTERIOR FEMORAL OSTEOPHYTES WERE REMOVED FROM THE FEMORAL CONDYLES. A 75 TIBIAL TRIAL WAS PLACED IN ALIGNMENT WITH THE 1/3 MEDIAL ASPECT OF THE TIBIAL TUBERCLE. THEN A 67.5 FEMORAL TRIAL COMPONENT WAS PLACED. BOTH HAD EXCELLENT FITS. EVENTUALLY A 10 MM CR POLYETHYLENE TRIAL COMPONENT WAS PLACED. THE KNEE WAS TAKEN THROUGH A RANGE OF MOTION. THE KNEE CAME OUT TO FULL EXTENSION. THERE WAS NO ABNORMAL TILT TO THE PATELLA. THERE WAS GOOD A/P AND VARUS/VALGUS STABILITY. THERE WAS NO EXCESSIVE ROLL BACK WITH FLEXION. THE TRIAL COMPONENTS WERE REMOVED. THEN A 67.5 FEMORAL COMPONENT AND 75 TIBIAL COMPONENT WITH A 10 CR POLYETHYLENE COMPONENT WERE CEMENTED INTO PLACE. ONCE THE CEMENT WAS HARD THE KNEE WAS TAKEN THROUGH A ROM AGAIN AND FOUND TO BE STABLE WITH NO PATELLA TILT NO EXCESSIVE ROLL BACK WITH FLEXION AND GOOD STABILITY WITH COMPLETE AND FULL EXTENSION. THE KNEE WAS IRRIGATED WITH STERILE BETADINE AND WATER FOR ABOUT 3 MINUTES. THE BLEEDERS WERE CAUTERIZED. THE ARTHROTOMY WAS REPAIRED WITH NUMBER 1 VICRYL. THE SUB CUTANEOUS LAYER WITH 2-0 VICRYL AND THE SKIN WITH BISI. THE WOUND WAS WASHED AND A STERILE DRESSING WAS APPLIED. PATIENT WAS EXTUBATED. Estimated Blood Loss -200.0 Pathology None sent Complications No immediate complications Condition Stable Disposition PACU
[2022-09-07] MEDS: HYDROmorphone HCL INJ (*CRX) 1 MG/ML SYR 0.5 MG IV PUSH ×2 (15:56→16:09)
--- NOTE | 2022-09-07 16:35 | SUR.PHASEI ---
0534 - dr. dominguez at bedside assessing pt.
--- NOTE | 2022-09-07 17:00 | PC.NURSE ---
This patient, Terry Christianson, was admitted to 3 Med Surg Room 326-01. Patient/family oriented to hospital policies and general routines including ID bracelet, bed and alarms, visiting hours, pain management, procedures, bathroom and other care routines, personal items, smoking policy, room service/diet, and visiting hours. Report received from Dary CARL Information on how to activate the Rapid Response Team has been discussed. Patient/Family are encouraged to report perceived risks to care and to ask questions if they do not understand what they are told or what they should do.
[2022-09-07] MEDS: HYDROcodone/acetaminophen (*CRX) 7.5-325 MG TABLET 1 TAB PO ×2 (17:17→20:17)
[2022-09-07] MEDS: SENNA/DOCUSATE SODIUM TABLET 2 TAB PO (18:29)
[2022-09-07] MEDS: PANTOPRAZOLE 40 MG TABLET PO (18:29)
[2022-09-07] MEDS: traZODone HCL 50 MG TABLET 200 MG PO (20:17)
[2022-09-07] MEDS: ASPIRIN 325 MG ENTERIC TABLET PO (20:18)
[2022-09-07] MEDS: diazePAM (*CRX) 5 MG TABLET PO (21:08)
[2022-09-08] VITALS: BP 102/52; PULSE 72; RESP 20; TEMP 36.6; O2SAT 94
[2022-09-08] MEDS: HYDROcodone/acetaminophen (*CRX) 7.5-325 MG TABLET 1 TAB PO ×5 (00:04→16:40)
[2022-09-08] MEDS: KETOROLAC 15 MG/ML VIAL (*BKC) IV PUSH ×3 (00:04→10:59)
[2022-09-08 04:00] VITALS: BP 113/67; PULSE 74; RESP 19; TEMP 36.6; O2SAT 96
[2022-09-08] MEDS: ceFAZolin 2 GM/D5W 50 ML 2 GM/50 ML BAG IVPB ×2 (04:30→11:00)
[2022-09-08] MEDS: diazePAM (*CRX) 5 MG TABLET PO ×2 (05:05→12:35)
[2022-09-08 06:42] LABS: Basophils Percent Auto 0.2 % (0.2-1.2); Hematocrit 34.6 % (42.0-52.0); Hemoglobin 11.7 g/dL (14.0-18.0); Immature Granulocyte Absolute 0.05 K/mm3 (0.00-0.031); Immature Granulocyte Percent A 0.4 % (0-0.5); Lymphocytes Absolute Auto 0.89 K/mm3 (0.9-3.2); Lymphocytes Percent Auto 7.7 % (18.3-44.2); Mean Corpuscular HGB Conc 33.8 g/dl (32-36); Mean Corpuscular Hemoglobin 30.4 pg (26-34); Mean Corpuscular Volume 89.9 fl (80-100); Mean Platelet Volume 9.8 fl (7.4-10.4); Monocytes Absolute Auto 1.1 K/mm3 (0.1-0.6); Monocytes Percent Auto 9.4 % (2.6-8.5); Neutrophils Absolute Auto 9.5 K/mm3 (1.3-6.7); Neutrophils Percent Auto 82.3 % (45.5-73.1); Platelet Count Result 182 k/mm3 (150-375); Red Blood Count 3.85 M/mm3 (4.6-6.20); Red Cell Distribution Width 12.5 % (11.5-14.5); White Blood Count 11.6 K/mm3 (4.5-10.0)
[2022-09-08 06:47] LABS: Anion Gap 5 mmol/L (8-16); Blood Urea Nitrogen 19 mg/dL (9-20); Calcium 8.3 mg/dL (8.4-10.2); Carbon Dioxide 24 mmol/L (22-30); Chloride 105 mmol/L (98-107); Estimated CRCL calculation 79 ml/min; Estimated Glomerular Filt Rate > 60; Glucose 136 mg/dL (65-110); Potassium 4.1 mmol/L (3.4-5.0); Sodium 134 mmol/L (137-145)
--- NOTE | 2022-09-08 07:49 | WPDANESPN ---
Anes - Prog Note Post-Op Date/Time: 09/08/22 07:49 Cardiovascular status: normal Respiratory status: normal Airway patency: baseline Mental status: baseline Post-Op hydration status: normal Vital Signs: Last Vital Signs Temp 36.6 C 09/08/22 04:00 Pulse 74 09/08/22 04:00 Resp 19 09/08/22 04:00 BP 113/67 09/08/22 04:00 Pulse Ox 96 09/08/22 04:00 O2 Del Method Room Air 09/07/22 20:00 O2 Flow Rate 2 09/07/22 16:30 Pain Score (VAS): 02/28 I/O: Intake & Output 09/07/22 09/07/22 09/08/22 15:59 23:59 07:59 Intake Total 150 550 750 Balance 150 550 750 Laboratory Tests 09/08/22 06:13 09/08/22 06:13 09/08/22 09/08/22 06:13 06:13 WBC 11.6 H RBC 3.85 L Hgb 11.7 L D Hct 34.6 L MCV 89.9 MCH 30.4 MCHC 33.8 RDW 12.5 Plt Count 182 MPV 9.8 Immature Gran % (Auto) 0.4 Neut % (Auto) 82.3 H Lymph % (Auto) 7.7 L [place] % (Auto) 9.4 H Eos % (Auto) 0.0 Baso % (Auto) 0.2 Lymph # (Auto) 0.89 L [place] # (Auto) 1.1 H Eos # (Auto) 0.0 Baso # (Auto) 0.0 Abs Immat Gran (auto) 0.05 H Absolute Neuts (auto) 9.5 H Absolute Nucleated RBC 0.0 Nucleated RBC % 0.0 Sodium 134 L Potassium 4.1 Chloride 105 Carbon Dioxide 24 Anion Gap 5 L BUN 19 Creatinine 1.10 Estim Creat Clear Calc 79 Estimated GFR > 60 Glucose 136 H Calcium 8.3 L Post-procedural complaints: none Patient Feedback: Patient satisfied with anesthetic care.
[2022-09-08 08:00] VITALS: BP 104/76; PULSE 77; RESP 19; TEMP 36.5; O2SAT 96
[2022-09-08 08:36] VITALS: PULSE 71
[2022-09-08] MEDS: PANTOPRAZOLE 40 MG TABLET PO ×2 (08:36→16:41)
[2022-09-08] MEDS: NEBIVOLOL HCL 5 MG TABLET PO (08:36)
[2022-09-08] MEDS: SENNA/DOCUSATE SODIUM TABLET 2 TAB PO ×2 (08:36→16:41)
[2022-09-08] MEDS: ASPIRIN 325 MG ENTERIC TABLET PO (08:37)
[2022-09-08 12:00] VITALS: BP 97/70; PULSE 61; RESP 19; TEMP 36.3; O2SAT 96
--- NOTE | 2022-09-08 16:34 | PM.PNORT ---
Progress Note: A&P Assessment and Plan (1) Right knee DJD: Code(s): M17.11 - Unilateral primary osteoarthritis, right knee Status: Acute Assessment and Plan: POD 1 DOING WELL WITH GOOD PROGRESS IN PT. OK TO DC HOME F/U IN 3 WEEKS. Subjective Subjective Date/Time Seen: 09/08/22 16:34 POD 1 DOING WELL. NO CALF PAIN Exam Extrem: Other: VSS AFEBRILE DRESSING DRY NV INTACT NEG HOMANS SIGN, CALF SOFT NON TENDER Objective Data Vital Signs Vital Signs: Vital Signs - 24 hr 09/07/22 16:40 09/07/22 17:16 09/07/22 16:46 Temperature 36.2 C L Pulse Rate 80 87 Respiratory Rate 16 14 Blood Pressure 129/90 115/66 Pulse Oximetry 98 96 Oxygen Delivery Room Air Room Air 09/07/22 17:01 09/07/22 17:31 09/07/22 18:58 Temperature 36.3 C L 36.2 C L 36.1 C L Pulse Rate 87 74 73 Respiratory Rate 15 14 14 Blood Pressure 117/76 113/59 L 110/62 Pulse Oximetry 94 94 94 Oxygen Delivery 09/07/22 20:00 09/07/22 20:00 09/08/22 00:00 Temperature 36.5 C 36.6 C Pulse Rate 71 72 Respiratory Rate 17 20 Blood Pressure 113/69 102/52 L Pulse Oximetry 98 94 Oxygen Delivery Room Air 09/08/22 04:00 09/08/22 07:23 09/08/22 08:36 Temperature 36.6 C Pulse Rate 74 71 Respiratory Rate 19 Blood Pressure 113/67 Pulse Oximetry 96 Oxygen Delivery Room Air 09/08/22 08:00 09/08/22 09:36 09/08/22 12:00 Temperature 36.5 C 36.3 C L Pulse Rate 77 61 Respiratory Rate 19 19 Blood Pressure 104/76 97/70 L Pulse Oximetry 96 96 Oxygen Delivery Room Air Intake/Output Intake/Output: Intake & Output 09/05/22 09/06/22 09/07/22 09/08/22 23:59 23:59 23:59 23:59 Intake Total 700 1280 Balance 700 1280 Meds/Results Medications: Active Medications Generic Name Dose Route Start Last Admin Trade Name Freq PRN Reason Stop Dose Admin Hydrocodone Bitart/Acetaminophen 1 tab 09/07/22 17:00 09/08/22 12:21 Hydrocodone/Acetaminophen (*Crx) 7.5-325 Mg Tablet PO 1 tab Q4HR DIONY Administration Aspirin 325 mg 09/07/22 21:00 09/08/22 08:37 Aspirin 325 Mg Enteric Tablet PO 325 mg Q12HR DIONY Administration Diazepam 5 mg 09/07/22 16:46 09/08/22 12:35 Diazepam (*Crx) 5 Mg Tablet PO 5 mg Q8H PRN Administration Spasms Diphenhydramine HCl 25 mg 09/07/22 16:46 Diphenhydramine Hcl Inj 50 Mg/Ml Vial IV PUSH Q6H PRN Itching Ketorolac Tromethamine 15 mg 09/07/22 18:00 09/08/22 10:59 Ketorolac 15 Mg/Ml Vial (*Bkc) IV PUSH 09/08/22 18:01 15 mg Q6HR DIONY Administration Miscellaneous Information 0 each 09/07/22 00:01 Adderall Is Nonformulary - Can This Be Held While Inpatient? XX 10/07/22 00:00 CLARIFY DIONY Naloxone HCl 0.1 mg 09/07/22 16:46 Naloxone Hcl 0.4 Mg/Ml Vial IV PUSH Q2M PRN Opiate Reversal Nebivolol 5 mg 09/08/22 09:00 09/08/22 08:36 Nebivolol Hcl 5 Mg Tablet PO 5 mg QAM DIONY Administration Non-Formulary Medication 10 mg 09/07/22 16:46 Dextroamphetamine-Amphetamine [Adderall] PO 10/07/22 16:45 QNOON DIONY Non-Formulary Medication 30 mg 09/08/22 09:00 Dextroamphetamine-Amphetamine [Adderall Xr] PO 10/08/22 08:59 QAM DIONY Ondansetron HCl 4 mg 09/07/22 16:46 Ondansetron Inj 4 Mg/2 Ml Vial IV PUSH Q4H PRN Nausea And Vomiting Oxycodone/Acetaminophen 1 tablet 09/07/22 16:46 Oxycodone/Acetaminophen (*Crx) 5-325 Mg Tablet PO Q4H PRN Pain Rated 4-6 Oxycodone/Acetaminophen 2 tablet 09/07/22 16:46 Oxycodone/Acetaminophen (*Crx) 5-325 Mg Tablet PO Q6H PRN Pain Rated 7-10 Pantoprazole Sodium 40 mg 09/07/22 17:00 09/08/22 08:36 Pantoprazole 40 Mg Tablet PO 40 mg BID DIONY Administration Polyethylene Glycol 17 gm 09/08/22 09:00 09/08/22 08:37 Polyethylene Glycol 3350 17 Gm Powd.Pack PO Not Given QAM DIONY Senna/Docusate Sodium 2 tab 09/07/22 17:00 09/08/22 08:36 Senna/Docusate Sodium Tablet PO 2 tab
--- NOTE | 2022-09-08 16:37 | P.DS_ITS ---
DS: Admitting Diagnosis Discharge Date 09/08/22 Admitting Diagnosis RIGHT KNEE DJD DS: Discharge Diagnosis Discharge Diagnosis (1) Knee joint replacement status: Code(s): Z96.659 - Presence of unspecified artificial knee joint Status: Acute DS: Summary Hospital Course Reason for hospitalization: UR TKA Hospital Course: PATIENT WAS ADMITTED S/P TOTAL KNEE ARTHROPLASTY FOR POSTOPERATIVE MEDICAL MANAGEMENT, PAIN CONTROL AND MOBILIZATION WITH PHYSICAL AND OCCUPATIONAL THERAPY. THE PATIENT PROGRESSED WELL WITH PT/OT. LABS AND VITALS REMAINED STABLE AND PAIN WELL CONTROLLED. THE PATIENT HAS BEEN CLEARED TO BE DISCHARGED HOME. FOLLOW UP APPOINTMENT SCHEDULED. DISCHARGE INSTRUCTIONS DISCUSSED AT LENGTH WITH THE PATIENT. MEDICATIONS REVIEWED. Status at Discharge Cognitive/behavioral status at discharge: STABLE Functional status at discharge: uses cane/walker Time Spent with Patient Time attestation: Total time spent providing and/or coordinating discharge services: DS: Data Data Completed and Pending Labs on day of discharge: Labs from last 24 hours 09/08/22 09/08/22 06:13 06:13 WBC 11.6 H RBC 3.85 L Hgb 11.7 L D Hct 34.6 L MCV 89.9 MCH 30.4 MCHC 33.8 RDW 12.5 Plt Count 182 MPV 9.8 Immature Gran % (Auto) 0.4 Neut % (Auto) 82.3 H Lymph % (Auto) 7.7 L [place] % (Auto) 9.4 H Eos % (Auto) 0.0 Baso % (Auto) 0.2 Lymph # (Auto) 0.89 L [place] # (Auto) 1.1 H Eos # (Auto) 0.0 Baso # (Auto) 0.0 Abs Immat Gran (auto) 0.05 H Absolute Neuts (auto) 9.5 H Absolute Nucleated RBC 0.0 Nucleated RBC % 0.0 Sodium 134 L Potassium 4.1 Chloride 105 Carbon Dioxide 24 Anion Gap 5 L BUN 19 Creatinine 1.10 Estim Creat Clear Calc 79 Estimated GFR > 60 Glucose 136 H Calcium 8.3 L Discharge Plan Discharge Patient Disposition: Home Health Service Discharge Instructions: per care coordination, [facility] arranged for RN, PT/OT evaluations and treatments. [facility] will contact you to arrange first visit. [facility] can be reached at [phone]. Patient Instructions: Antibiotic Form, Precautions after Total Joint Replacement Surgery (GEN), Revision Total Joint Arthroplasty (GEN) Stand Alone Forms: General Discharge Information Follow-up/Referrals: Seth Balbuena MD [Physician] - 3 Weeks Discharge Medications: New oxycodone-acetaminophen [Percocet] 5-325 mg tablet 1 tablet PO Q6H PRN (Reason: pain) Qty: 50 0RF diazepam [Valium] 5 mg tablet 5 mg PO BID PRN (Reason: muscle spasm) Qty: 30 0RF Continued multivitamin Tablet 1 tablet PO DAILY pantoprazole [Protonix] 40 mg tablet,delayed release (DR/EC) 40 mg PO BID 30 Days Qty: 180 3RF trazodone 100 mg tablet 200 mg PO HS Qty: 180 0RF dextroamphetamine-amphetamine [Adderall] 10 mg tablet 10 mg PO QNOON Qty: 30 0RF Rx Instructions: take 1 at noon dextroamphetamine-amphetamine [Adderall XR] 30 mg capsule,extended release 24hr 30 mg PO QAM Qty: 30 0RF nebivolol [Bystolic] 5 mg tablet 5 mg PO QAM Qty: 90 0RF
== END 2022-09-08 17:15 | disposition home health service (06) ==
LOC: ANHSURGERY 08:26 → ANH3MEDSUR 16:51
PROVIDERS: PCP Family Medicine; Visit Provider Orthopaedic Surgery
PROC: (CPT 27447; principal; 2022-09-07 10:30)
DX: M17.11 Unilateral primary osteoarthritis, right knee (principal); G89.18 Other acute postprocedural pain; I10 Essential (primary) hypertension; G47.33 Obstructive sleep apnea (adult) (pediatric); I47.1 Supraventricular tachycardia; E66.9 Obesity, unspecified; Z68.38 Body mass index [BMI] 38.0-38.9, adult; Z87.891 Personal history of nicotine dependence
CPT/HCPCS: 27447; 64447; 36415; 73560; 80048; 80307; 81003; 82040; 83036; 85025; 85610; 85730; 86850; 86900; 86901; 87081; 93005; 97110; 97116; 97161; 97165; 97535; A9270; C1713; C1776; J0171; J0690; J1100; J1170; J1885; J2250; J2270; J2405; J2704; J2795; J3010; J7120

== ENCOUNTER 2022-11-18 15:30 | Outpatient (RCR) | payer OTHER, SELFPAY ==
--- NOTE | 2022-10-13 16:21 | PTOPEVAL1 ---
Assessment and note entered by Freedom Whitehead, PT, DPT Evaluation Information Assessment Status Evaluation Diagnosis R TKA Onset 09/07/22 Subjective Information Pt states he had a R TKA on 09/07/22, he completed 2 weeks of home health after that. He states his swelling has improved a lot. He states he still has some tightness and some strength deficits. Pt states he is still taking pain medication and a muscle relaxer at night to help him sleep. Pt states he has a wood burning stove and carries wood up his stairs about 4 times a day. Reported Pain Level Pain Score 3: Self Report Assessment PT Clinical Summary Terry presents to therapy today for his initial evaluation following a R TKA on 09/07/22. He has completed 2 weeks of home health therapy. Today he demonstrates active knee flexion to 100 deg which is decreased from his uninvolved side. He demonstrates good strength this is just mildly decreased from the uninvolved side. He ambulates with minimal gait deviations and without an AD this date. His pain is well controlled. Skilled physical therapy services are indicated to address the ROM and strength deficits, to improve functional mobility, and to return to baseline. At baseline, pt is very active and does a lot of manual labor and heavy lifting around his home. Plan of Care Interventions Electrical Stimulation,Gait Training,Hot Pack/Cold Pack,Manual Therapy,Neuro Re-education,Patient/ Caregiver Educati,Therapeutic Activities, Therapeutic Exercise PT Services Indicated Yes Treatment Frequency and 2x/wk for 5 wks Duration These treatments will address the objective and functional deficits as defined above. The patient will be advanced safely and appropriately in order for the patient to progress towards his/her prior level of function. Additional exercises will be introduced and as well as a comprehensive home exercise program upon discharge, if needed, ?to ensure carryover of functional gains achieved in the clinic. This treatment plan has been reviewed and agreement upon by the patient.
--- NOTE | 2022-11-18 16:16 | PTOPDC ---
Assessment and note entered by Freedom Whitehead, PT, DPT Evaluation Information Assessment Status Discharge Diagnosis R TKA Onset 09/07/22 Subjective Information Pt states overall things are going good. He states he has no pain usually but still gets some popping sensations and intermittent nerve pains. He is able to work on his car and on his property without an increase in pain. He is able to get up and down from the ground, Pt reports 98% improvement in overall symptoms. Reported Pain Level Pain Score 0: Self Report Assessment PT Clinical Summary Terry presents to therapy today for his progress report following 10 visits of skilled therapy to treat his R TKA performed on 09/07/22. Today he demonstrates active knee flexion to 115 deg and passive knee flexion to 130 deg, he is lacking 5 deg from terminal knee extension but can achieve 0 deg passively. He has a minor lack of terminal knee extension during ambulation. Overall he demonstrates excellent strength and functional mobility. He has progressed well towards his therapy goals. He will be discharged from skilled therapy services at this time with instructions to continue his HEP and to follow up with his referring provider if needed. Plan of Care PT Services Indicated No Treatment Frequency and to be discharged Duration
== END 2022-12-15 14:21 | disposition home or self-care (01) ==
LOC: ANHGOSHPT 15:30
PROVIDERS: PCP Family Medicine; Visit Provider Orthopaedic Surgery
DX: Z47.1 Aftercare following joint replacement surgery (principal); Z96.651 Presence of right artificial knee joint
CPT/HCPCS: 97110; 97112; 97140; 97161; 97530

== ENCOUNTER 2023-09-24 01:21 | Observation (INO) | payer OTHER, SELFPAY ==
[2023-09-24] VITALS (63 sets, daily range): BP systolic 77–146; BP diastolic 67–96; PULSE 49–87; RESP 7–28; TEMP 36.2–36.9; O2SAT 89–100
--- NOTE | ~2023-09-24 | CT_ITS ---
EXAMINATION: CTA abdomen pelvis DATE: 09/24/2023 13:57 INDICATION: Abdominal pain and flank pain. TECHNIQUE: Computed tomographic angiography (CTA) of the abdomen and pelvis was performed with 100 mL Omnipaque-350 intravenous contrast. Additional 3D reconstructions utilizing rotating maximum intensi ty projection (MIP) were performed. Automated exposure control and iterative reconstruction technique were employed. The dose-length product was 1527.33 mGy-cm. COMPARISON: CT dated 09/24/2023 FINDINGS: Mild dependent atelectasis in bilateral lower lobes. Heart size normal. No pericardial or pleural eff usion. Diffuse hepatic steatosis with focal sparing along the gallbladder fossa. Scattered hepatic an d splenic calcifications consistent with old granulomatous disease. Gallbladder, pancreas, bilateral adrenal glands and left kidney are normal. 8 mm macroscopic fat attenuation angiomyolipomas at the up per pole of the right kidney. Mild diverticulosis along the sigmoid colon without adjacent inflammato ry change to suggest diverticulitis. Small bowel and appendix are normal. Bladder is normal. Prostato megaly measuring 5.1 x 4.4 cm. Normal caliber abdominal aorta and bilateral common, internal and exte rnal iliac arteries with small amount of scattered atherosclerotic plaque with no hemodynamically sig nificant stenosis, aneurysm or dissection. Moderate stenosis at the origin of the celiac axis which r esults from extrinsic compression from the suzanne of the diaphragm (arcuate syndrome). There are bilate ral paired renal arteries. Superior and inferior mesenteric arteries are normal. Chronic appearing mi nimal anterior wedging at T8 and T9 with moderate thoracic and mild lumbar spondylosis. IMPRESSION: 1. Normal caliber abdominal aorta with no aneurysm or dissection. 2. No acute intra-abdominal/pelvic process. 3. Diffuse hepatic steatosis. 4. Small sliding-type hiatal hernia. Reviewed, dictated and finalized at location A.
--- NOTE | ~2023-09-24 | CT_ITS ---
EXAMINATION: CTA chest PE abdomen pel DATE: 09/24/2023 03:47 INDICATION: Chest and flank pain TECHNIQUE: Computed tomography angiography (CTA) of the chest was performed with 100 mL Omnipaque-350 intravenous contrast timed to evaluate the pulmonary arteries. Subsequent postcontrast images of the abdomen and pelvis are obtained. Coronal maximum intensity projection 3D-reconstructions were create d by the technologist. The dose-length product (DLP) was 2421.87 mGy-cm. Automated exposure control a nd iterative reconstruction technique were employed. COMPARISON: 05/12/2022 FINDINGS: CTA CHEST: The pulmonary arteries are well-opacified. No pulmonary embolism is identified. Motion art ifact somewhat limits the examination. There is mild atelectasis. Cardiomegaly is noted. No pleural e ffusion or pneumothorax. There are no pathologically enlarged thoracic lymph nodes. Calcified right p aratracheal lymph nodes are consistent with old granulomatous disease. There is moderate thoracic spo ndylosis. ABDOMEN/PELVIS CT: The liver is diffusely low in attenuation when compared with the spleen, consisten t with hepatic steatosis. Punctate calcifications in an otherwise normal spleen likely represent heal ed granulomatous disease. There is mild gallbladder distention. The pancreas and adrenal glands are n ormal. There is an 8 mm cyst of the right kidney. The left kidney is unremarkable. No pathologically enlarged abdominal or pelvic lymph nodes are identified. No free intraperitoneal gas or evidence of b owel obstruction. Colonic diverticulosis is present without evidence of diverticulitis. The appendix is normal. There is mild lumbar spondylosis. IMPRESSION: 1. No pulmonary embolus identified, sensitivity somewhat limited by respiratory motion. 2. Mild gallbladder distention without additional findings of cholecystitis, possibly due to fasting state. 3. Diffuse hepatic steatosis. Reviewed, dictated and finalized at location F. IMPRESSION: 1. No pulmonary embolus identified, sensitivity somewhat limited by respiratory motion. 2. Mild gallbladder distention without additional findings of cholecystitis, po ssibly due to fasting state. 3. Diffuse hepatic steatosis.
--- NOTE | 2023-09-24 01:36 | ECG_ITS ---
Measurements Intervals [place] Rate: 76 P: 59 VA: 152 QRS: -22 QRSD: 92 T: 31 QT: 363 QTc: 409 Interpretive Statements SINUS RHYTHM DELAYED PRECORDIAL R/S TRANSITION CONSIDER INFERIOR INFARCT, AGE INDETERMINATE BASELINE ARTIFACT- I, II, III, AVR, AVL, AVF, V3-V6 ABNORMAL ECG COMPARED TO ECG 08/27/2022 15:02:23 NO SIGNIFICANT CHANGES Electronically Signed On 09-24-2023 9:27:44 CDT by Terence Hernandez D.O.
--- NOTE | 2023-09-24 02:15 | ED.MALEGU ---
HPI - Male Genitourinary General Chief complaint: Urogenital-Male Stated complaint: flank pain Time Seen by Provider: 09/24/23 01:55 History of Present Illness HPI Narrative: Patient is a 58-year-old male with history of gastric ulcer, nephrolithiasis, HTN here with chest pain and back pain. patient states that around 10:00 a.m. this evening he began having some left-sided flank and lateral chest pain. He notes that it radiates into his mid abdomen as well as into his anterior chest. He notes that severe, was initially 10/10, improved with fentanyl in route but has now returned. He has urinated since this pain began, denies any hematuria. He denies any fever or chills. He denies any prior cardiac history. Related Data Home Medications Medication Instructions Recorded Confirmed multivitamin 1 tablet PO DAILY 04/09/21 09/24/23 cetirizine 10 mg chewable tablet 10 mg PO BID 09/24/23 09/24/23 (Zyrtec) Allergies Allergy/AdvReac Type Severity Reaction Status Date / Time lisinopril AdvReac Intermediate Hallucinati Verified 09/24/23 01:35 ng Review of Systems Review of Systems: All systems reviewed & are unremarkable except as noted in HPI and below PMFSH Past Medical History Medical History Acute blood loss anemia BMI 36.0-36.9,adult BMI 37.0-37.9, adult BMI 39.0-39.9,adult Chronic headaches Facial swelling Hearing loss HTN (hypertension) Insomnia Kidney stones, calcium oxalate Left knee pain Left sided abdominal pain Lesion of skin of scalp Medial meniscus, posterior horn derangement Neuroma digital nerve Numbness and tingling in both hands (~1998) Obesity GABRIELA on CPAP GABRIELA treated with BiPAP Plantar fasciitis Plantar fasciitis of left foot Rectal bleeding Small ear canal SVT (supraventricular tachycardia) Thoracic spondylosis (~2017) Surgical History Surgical History Carpal tunnel syndrome of left wrist Carpal tunnel syndrome of right wrist H/O cystoscopy with a placement of a stent H/O hernia repair umbilical and groin H/O right knee surgery Family History Family History Father Hypertension Family history of diabetes mellitus in first degree relative Family history of coronary artery disease Family history of elevated blood lipids Family history of congestive heart failure Diabetes mellitus Mother Cerebrovascular accident Family history of pancreatic cancer Family history of primary malignant neoplasm of liver Family history of thyroid disease Sibling Family history of thyroid disease Family history of elevated blood lipids Family history of diabetes mellitus in first degree relative Sibling Diabetes mellitus Sibling Diabetes mellitus Malignant neoplasm of prostate Other Family history of alcoholism Family history of arthritis Medial meniscus, posterior horn derangement Social History Social History Smoking packs per day: 1 Smoking cigarettes per day: 20.0 Years smoked: 20 Smoking pack-years: 20.00 Smoking status: Former smoker Tobacco type: cigarettes Smoking end date: 11/21/04 Alcohol intake: never Substance use: never Substance use type: does not use Lack of Transportation: No Lack of Food: Never True Current Housing: I Have Housing Concerned About Future Housing: No Difficulty Paying Gas/Electric Bills: No Difficulty Paying for Meds: No Currently Unemployed: No Education: Master's Degree or Higher Difficulty w/ Childcare or Family Care: No Living arrangements: with family Occupation/Education: occupation 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
[2023-09-24] MEDS: MORPHINE SULFATE (*CRX) 4 MG/ML INJ IV PUSH (02:36)
[2023-09-24] MEDS: ONDANSETRON INJ 4 MG/2 ML VIAL IV PUSH (02:36)
[2023-09-24 02:55] LABS: Basophils Percent Auto 0.6 % (0.2-1.2); Eosinophils Absolute Auto 0.4 K/mm3 (0-0.3); Eosinophils Percent Auto 5.3 % (0-4.4); Hematocrit 41.6 % (42.0-52.0); Hemoglobin 13.9 g/dL (14.0-18.0); Immature Granulocyte Absolute 0.02 K/mm3 (0.00-0.031); Immature Granulocyte Percent A 0.3 % (0-0.5); Lymphocytes Absolute Auto 1.25 K/mm3 (0.9-3.2); Mean Corpuscular HGB Conc 33.4 g/dl (32-36); Mean Corpuscular Hemoglobin 28.8 pg (26-34); Mean Corpuscular Volume 86.3 fl (80-100); Mean Platelet Volume 9.9 fl (7.4-10.4); Monocytes Absolute Auto 0.6 K/mm3 (0.1-0.6); Monocytes Percent Auto 8.5 % (2.6-8.5); Neutrophils Absolute Auto 4.4 K/mm3 (1.3-6.7); Neutrophils Percent Auto 66.3 % (45.5-73.1); Platelet Count Result 182 k/mm3 (150-375); Red Blood Count 4.82 M/mm3 (4.6-6.20); Red Cell Distribution Width 12.9 % (11.5-14.5); White Blood Count 6.6 K/mm3 (4.5-10.0)
[2023-09-24] MEDS: PANTOPRAZOLE SODIUM IV 40 MG VIAL IV PUSH (02:55)
[2023-09-24 03:07] LABS: Alanine Aminotransferase 31 U/L (6-50); Alkaline Phosphatase 63 U/L (38-126); Anion Gap 7 mmol/L (8-16); Aspartate Amino Transferase 25 U/L (17-59); Bilirubin,Total 0.6 mg/dL (0.2-1.3); Blood Urea Nitrogen 16 mg/dL (9-20); Calcium 9.1 mg/dL (8.4-10.2); Carbon Dioxide 25 mmol/L (22-30); Chloride 107 mmol/L (98-107); Estimated CRCL calculation 80 ml/min; Estimated Glomerular Filt Rate > 60; Glucose 143 mg/dL (65-110); Lipase 128 U/L (23-300); Potassium 3.8 mmol/L (3.4-5.0); Sodium 139 mmol/L (137-145)
[2023-09-24 03:18] LABS: Troponin I < 0.012 ng/mL (0.000-0.034)
[2023-09-24 03:45] LABS: INR 0.9; Prothrombin Time 12.8 Seconds (11.1-14.7)
[2023-09-24 03:46] LABS: Partial Thromboplastin Time 28.7 SECONDS (22.3-36.8)
[2023-09-24] MEDS: HYDROmorphone HCL INJ (*CRX) 1 MG/ML SYR IV PUSH ×5 (04:22→21:05)
[2023-09-24 04:35] LABS: Appearance Urine Clear (Clear); Bilirubin Urine Negative (Negative); Blood Urine Negative (Negative); Color Urine Yellow (Yellow); Glucose Urine UA Negative (Negative); Ketones Urine Negative (Negative); Leukocyte Esterase Ur Negative LEU/UL (Negative); Nitrate Urine Negative (Negative); Protein Urine Negative (Negative); Urobilinogen Urine 0.2 mg/dL (<2.0); pH Urine 5.5 (5.0-9.0)
[2023-09-24 04:47] LABS: Specific Grav Ur 1.084 (1.001-1.035)
[2023-09-24 04:50] LABS: Add Urine Microscopic? NO
[2023-09-24] MEDS: diazePAM INJ (*CRX) 10 MG/2 ML SYRINGE 5 MG IV PUSH (07:01)
[2023-09-24 07:18] LABS: Troponin I < 0.012 ng/mL (0.000-0.034)
[2023-09-24 10:09] LABS: Troponin I < 0.012 ng/mL (0.000-0.034)
--- NOTE | 2023-09-24 11:14 | ADMGEN ---
This patient, Terry Christianson, was admitted to IMU Room 231-01. Patient/family oriented to hospital policies and general routines including ID bracelet, bed and alarms, visiting hours, pain management, procedures, bathroom and other care routines, personal items, smoking policy, room service/diet, and visiting hours. Information on how to activate the Rapid Response Team has been discussed. Patient/Family are encouraged to report perceived risks to care and to ask questions if they do not understand what they are told or what they should do.
--- NOTE | 2023-09-24 11:23 | PM.CNCAR ---
Assessment and Plan Assessment and plan (1) Chest pain: Qualifiers: Chest pain type: unspecified Qualified Code(s): R07.9 - Chest pain, unspecified Code(s): R07.9 - Chest pain, unspecified Status: Acute Assessment and Plan: Chest pain is highly unlikely to be anginal. Troponins are negative and EKG shows no acute ST or T-wave abnormalities. Chest pain was non relenting for 6 hours without troponin leak. Continues to have flank pain at this point is now over 12 hours after onset. He has no exertional symptoms. CT scan has been performed but results are pending. Consider T spine radiculopathy, shingles, kidney stone renal involvement, PE or other etiologies also. If workup is otherwise unremarkable, would recommend an Lexiscan myocardial perfusion study but would investigate for other etiologies 1st. Continue nebivolol. Continue PPI because of history of gastric ulcers and bleeding. (2) Left flank pain: Code(s): R10.9 - Unspecified abdominal pain Status: Acute Assessment and Plan: Workup per hospitalist (3) GABRIELA treated with BiPAP: Code(s): G47.33 - Obstructive sleep apnea (adult) (pediatric) Status: Acute Assessment and Plan: Continue BiPAP (4) HTN (hypertension): Code(s): I10 - Essential (primary) hypertension Status: Acute Assessment and Plan: Continue nebivolol History of Present Illness History of Present Illness Consult date/time: 09/24/23 11:23 Requesting physician: Cristina Nur MD Consult reason: chest pain Reason For Visit: Chest Pain Narrative: Date of service 09/24/2023 Reason consultation: Chest pain Requesting provider: Dr. Nur History patient is a 58-year-old male who we are consulted because of chest pain. Patient was seen by our practice several years ago and had some atrial arrhythmias and had gastric ulcers. He states that he has these current symptoms all the time except for today he had some associated chest pressure. He came to the hospital because starting at 10:00 p.m. last night he developed anterior chest pressure which radiated around to his back and into his flank. He also had some abdominal burning sensation. No associated symptoms. Symptoms have been present consistently for over 12 hours. His anterior chest pressure did go away after about 6 hours. He still is uncomfortable in still has residual flank pain which is 6/10. He has no exertional symptoms. Has no shortness of breath, syncope, presyncope, presyncope, paroxysmal nocturnal dyspnea, orthopnea, edema or palpitations. His chest pain is not pleuritic nor is it worsened by twisting or turning his chest. He does not advocate a history of shingles. EKG is unremarkable and troponins are negative. Review of Systems Review of Systems: All systems reviewed & are unremarkable except as noted in HPI and below Constitutional: Constitutional: Denies body ache(s) Eyes: Eyes: Denies blurry vision ENT: Reports Normal hearing present Cardiovascular: Cardiovascular: Reports chest pain and Denies leg edema Respiratory: Respiratory: Denies dyspnea Gastrointestinal: Gastrointestinal: Reports abdominal pain Genitourinary: Genitourinary: Denies hematuria Musculoskeletal: Musculoskeletal: Denies myalgias Integumentary/Breasts: Skin/Breast: Denies erythema Neurologic: Denies Abnormal speech present Psychiatric: Psychiatric: Denies anxiety Endocrine: Endocrine: Denies excessive sweating Hematologic/Lymphatic: Hematologic/Lymphatic: Denies easy bleeding Allergic/Immunologic: Allergic/Immunologic: Denies GI upset with certain foods PMFSH Past Medical History Medical History Acute blood loss anemia BMI 36.0-36.9,adult BMI 37.0-37.9, adult BMI 39.0-39.9,adult Chronic headaches Facial swelling Hearing loss HTN (hypertension) Insomnia Kidney stones, calcium oxalate Le
--- NOTE | 2023-09-24 12:42 | PM.IMHP ---
H&P: HPI History of Present Illness Date/Time: 09/24/23 12:42 Chief Complaint: Abdominal pain/chest pain Narrative: 58-year-old male who presents with abdominal pain that started about 10:00 a.m. last night. That radiated to his chest in his precordial area then states was been localized in his left flank. The pain has been severe requiring multiple doses of IV pain medication in the ER. Associated nausea but no vomiting. No urinary complaints. No fever or chills. History of gastric ulcer in the past nephrolithiasis and hypertension. No prior cardiac history. CTA abdomen pelvis done without any acute findings. CTA done was without contrast for the abdominal and pelvic part. Labs stable UA negative troponin series negative. EKG with no ST-T changes Review of Systems Review of Systems: - CONSTITUTIONAL: Denies weight loss, fever and chills. - HEENT: Denies changes in vision and hearing - RESPIRATORY: Denies SOB and cough. - CV: Denies palpitations and reports CP. - GI: Reports abdominal pain, nausea, denies vomiting and diarrhea. - : Denies dysuria and urinary frequency. - MSK: Denies myalgia and joint pain. - SKIN: Denies rash and pruritus. - NEUROLOGICAL: Denies headache and syncope. - PSYCHIATRIC: Denies recent changes in mood. Denies anxiety and depression. [facility] Past Medical History Medical History Acute blood loss anemia BMI 36.0-36.9,adult BMI 37.0-37.9, adult BMI 39.0-39.9,adult Chronic headaches Facial swelling Hearing loss HTN (hypertension) Insomnia Kidney stones, calcium oxalate Left knee pain Left sided abdominal pain Lesion of skin of scalp Medial meniscus, posterior horn derangement Neuroma digital nerve Numbness and tingling in both hands (~1998) Obesity GABRIELA on CPAP GABRIELA treated with BiPAP Plantar fasciitis Plantar fasciitis of left foot Rectal bleeding Small ear canal SVT (supraventricular tachycardia) Thoracic spondylosis (~2017) Surgical History Surgical History Carpal tunnel syndrome of left wrist Carpal tunnel syndrome of right wrist H/O cystoscopy with a placement of a stent H/O hernia repair umbilical and groin H/O right knee surgery Family History Family History Father Hypertension Family history of diabetes mellitus in first degree relative Family history of coronary artery disease Family history of elevated blood lipids Family history of congestive heart failure Diabetes mellitus Mother Cerebrovascular accident Family history of pancreatic cancer Family history of primary malignant neoplasm of liver Family history of thyroid disease Sibling Family history of thyroid disease Family history of elevated blood lipids Family history of diabetes mellitus in first degree relative Sibling Diabetes mellitus Sibling Diabetes mellitus Malignant neoplasm of prostate Other Family history of alcoholism Family history of arthritis Medial meniscus, posterior horn derangement Social History Social History Smoking packs per day: 1 Smoking cigarettes per day: 20.0 Years smoked: 20 Smoking pack-years: 20.00 Smoking status: Former smoker Tobacco type: cigarettes Smoking end date: 11/21/04 Alcohol intake: never Substance use: never Substance use type: does not use Lack of Transportation: No Lack of Food: Never True Current Housing: I Have Housing Concerned About Future Housing: No Difficulty Paying Gas/Electric Bills: No Difficulty Paying for Meds: No Currently Unemployed: No Education: Master's Degree or Higher Difficulty w/ Childcare or Family Care: No Living arrangements: with family Occupation/Education: occupation Additional occupation/education comme
[2023-09-24] MEDS: SODIUM CHLORIDE 0.9% IV 1,000 ML 75 ML IV CONT (16:19)
[2023-09-24] MEDS: LORATADINE 10 MG TABLET PO (16:27)
[2023-09-24] MEDS: CYCLOBENZAPRINE HCL 5 MG TABLET PO ×2 (16:27→21:06)
[2023-09-24] MEDS: CELECOXIB 200 MG CAPSULE PO (16:27)
[2023-09-24] MEDS: MULTIVITAMINS THERAPEUTIC TAB (*BKC) 1 TABLET PO (16:27)
[2023-09-24 16:50] LABS: Lactic Acid Reflex 1.7 mmol/L (0.7-2.0)
[2023-09-24] MEDS: traZODone HCL 50 MG TABLET 200 MG PO (21:06)
[2023-09-25] VITALS (10 sets, daily range): BP systolic 110–119; BP diastolic 66–77; PULSE 50–78; RESP 16–20; TEMP 36.6–36.7; O2SAT 97–98
[2023-09-25] MEDS: HYDROmorphone HCL INJ (*CRX) 1 MG/ML SYR IV PUSH (01:16)
--- NOTE | 2023-09-25 01:31 | PC.NURSE ---
Daylight Savings Time For Daylight Savings Time Ending in the Fall - Clocks are moved back. For Daylight Savings Time Beginning in the Spring - Clocks are moved ahead. For [facility], the time of change occurs at 0200 hrs. Time is taken from the tower observer. This entry on the patient's chart recognizes the change in time reflected during documentation. Example: 2 entries for vital signs may be charted for 0200 hrs.
[2023-09-25] MEDS: SODIUM CHLORIDE 0.9% IV 1,000 ML 75 ML IV CONT (03:22)
[2023-09-25 04:46] LABS: Basophils Percent Auto 0.6 % (0.2-1.2); Eosinophils Absolute Auto 0.3 K/mm3 (0-0.3); Eosinophils Percent Auto 5.9 % (0-4.4); Hematocrit 42.6 % (42.0-52.0); Immature Granulocyte Absolute 0.01 K/mm3 (0.00-0.031); Immature Granulocyte Percent A 0.2 % (0-0.5); Lymphocytes Absolute Auto 1.15 K/mm3 (0.9-3.2); Lymphocytes Percent Auto 22.7 % (18.3-44.2); Mean Corpuscular HGB Conc 32.9 g/dl (32-36); Mean Corpuscular Hemoglobin 28.8 pg (26-34); Mean Corpuscular Volume 87.7 fl (80-100); Mean Platelet Volume 9.5 fl (7.4-10.4); Monocytes Absolute Auto 0.4 K/mm3 (0.1-0.6); Monocytes Percent Auto 8.3 % (2.6-8.5); Neutrophils Absolute Auto 3.2 K/mm3 (1.3-6.7); Neutrophils Percent Auto 62.3 % (45.5-73.1); Platelet Count Result 165 k/mm3 (150-375); Red Blood Count 4.86 M/mm3 (4.6-6.20); Red Cell Distribution Width 13.1 % (11.5-14.5); White Blood Count 5.1 K/mm3 (4.5-10.0)
[2023-09-25 04:57] LABS: Alanine Aminotransferase 28 U/L (6-50); Albumin Level 3.5 g/dL (3.5-5.1); Alkaline Phosphatase 59 U/L (38-126); Anion Gap 5 mmol/L (8-16); Aspartate Amino Transferase 26 U/L (17-59); Bilirubin,Total 0.7 mg/dL (0.2-1.3); Blood Urea Nitrogen 12 mg/dL (9-20); Calcium 8.5 mg/dL (8.4-10.2); Carbon Dioxide 26 mmol/L (22-30); Chloride 108 mmol/L (98-107); Estimated CRCL calculation 87 ml/min; Estimated Glomerular Filt Rate > 60; Glucose 136 mg/dL (65-110); Magnesium 2.2 mg/dL (1.6-2.3); Potassium 3.9 mmol/L (3.4-5.0); Sodium 139 mmol/L (137-145)
[2023-09-25] MEDS: CYCLOBENZAPRINE HCL 5 MG TABLET PO (06:16)
--- NOTE | 2023-09-25 08:45 | PM.PNCARD ---
Progress Note: A&P Assessment and Plan (1) Chest pain: Qualifiers: Chest pain type: unspecified Qualified Code(s): R07.9 - Chest pain, unspecified Code(s): R07.9 - Chest pain, unspecified Status: Acute Assessment and Plan: Chest pain is highly unlikely to be anginal. Troponins are negative and EKG shows no acute ST or T-wave abnormalities. Chest pain was non relenting for 6 hours without troponin leak. Continues to have flank pain at this point is now over 12 hours after onset. He has no exertional symptoms. Consider T spine radiculopathy, shingles, kidney stone renal involvement, PE or other etiologies also. If workup is otherwise unremarkable, would recommend an Lexiscan myocardial perfusion study but this can be performed as an outpatient. Continue nebivolol. Continue PPI because of history of gastric ulcers and bleeding. Okay for discharge from my perspective. He states he has been having these episodes of off and on pain for 10 years (2) Left flank pain: Code(s): R10.9 - Unspecified abdominal pain Status: Acute Assessment and Plan: Workup per hospitalist (3) GABRIELA treated with BiPAP: Code(s): G47.33 - Obstructive sleep apnea (adult) (pediatric) Status: Acute Assessment and Plan: Continue BiPAP (4) HTN (hypertension): Code(s): I10 - Essential (primary) hypertension Status: Acute Assessment and Plan: Continue nebivolol Subjective Date/time seen: 09/25/23 08:45 Interval history: 58-year-old with chest pressure and flank pain. Date of service 09/25/2023: Chest pain is gone. Flank pain is also gone. Feels good and wants to go home. Uncertain etiology is to cause of discomfort Review of Systems Review of Systems: All systems reviewed & are unremarkable except as noted in HPI and below Constitutional: Constitutional: Denies body ache(s) and Denies excessive sweating Eyes: Eyes: Denies blurry vision ENT: Reports Normal hearing present Cardiovascular: Cardiovascular: Reports chest pain, Denies leg edema and Denies dyspnea Respiratory: Respiratory: Denies dyspnea Gastrointestinal: Gastrointestinal: Reports abdominal pain Genitourinary: Genitourinary: Denies hematuria Musculoskeletal: Musculoskeletal: Denies myalgias Integumentary/Breasts: Skin/Breast: Denies erythema Neurologic: Reports Normal hearing present and Denies Abnormal speech present Psychiatric: Psychiatric: Denies anxiety Endocrine: Endocrine: Denies excessive sweating Hematologic/Lymphatic: Hematologic/Lymphatic: Denies easy bleeding Allergic/Immunologic: Allergic/Immunologic: Denies GI upset with certain foods Exam Narrative: Awake alert oriented appears stated age Const: General: comfortable and no acute distress HENMT: Face/Nose/Sinus: Normal nares present Mouth: Yes moist mucous membranes Eyes: General: appearance normal, both eyes and all related structures Sclera: sclerae normal Neck: Neck: supple and no JVD Carotids: no bruits Chest: Other: No reproducible chest wall pain to palpation Resp: Effort & Inspection: normal respiratory effort Auscultation: clear to auscultation bilaterally Cardio: Rate: regular rate Rhythm: regular rhythm Heart sounds: no murmurs GI: Inspection: non-distended Auscultation: normal bowel sounds Skin: General skin exam: normal color Neuro: Cranial nerves: Yes Normal hearing present Speech: normal speech and No Abnormal speech present Motor exam (neuro): 5/5 motor strength present throughout Extrem: General: normal to inspection Psych: Mental Status: mental status grossly normal Objective Data Vital Signs Vital Signs: Vital Signs - 24 hr 09/24/23 09:50 09/24/23 09:52 09/24/23 10:00 Temperature Pulse Rate 73 60 Respiratory Rate 17 14 Blood Pressure 132/74 Pulse Oximetry 98 97 95 Oxygen Delivery 09/24/23 10:01 09/24/23 10:15 09/24/23 10:16 Te
[2023-09-25] MEDS: PANTOPRAZOLE SODIUM IV 40 MG VIAL IV PUSH (09:13)
[2023-09-25] MEDS: MULTIVITAMINS THERAPEUTIC TAB (*BKC) 1 TABLET PO (09:14)
[2023-09-25] MEDS: LORATADINE 10 MG TABLET PO (09:14)
[2023-09-25] MEDS: CELECOXIB 200 MG CAPSULE PO (09:14)
[2023-09-25] MEDS: NEBIVOLOL HCL 5 MG TABLET PO (09:14)
--- NOTE | 2023-09-25 12:05 | PM.DS ---
DS: Admitting Diagnosis Discharge Date 09/25/2023 Admitting Diagnosis Abdominal pain DS: Discharge Diagnosis Discharge Diagnosis (1) Chest pain: Qualifiers: Chest pain type: unspecified Qualified Code(s): R07.9 - Chest pain, unspecified Code(s): R07.9 - Chest pain, unspecified Status: Acute (2) Left flank pain: Code(s): R10.9 - Unspecified abdominal pain Status: Acute (3) Attention and concentration deficit: Code(s): R41.840 - Attention and concentration deficit Status: Acute (4) Chronic diastolic heart failure: Code(s): I50.32 - Chronic diastolic (congestive) heart failure Status: Acute (5) Essential hypertension: Code(s): I10 - Essential (primary) hypertension Status: Acute DS: Summary Hospital Course Hospital Course: 58-year-old male who presents with abdominal pain that started about 10:00 a.m. last night.? That radiated to his chest in his precordial area then states was been localized in his left flank.? The pain has been severe requiring multiple doses of IV pain medication in the ER.? Associated nausea but no vomiting.? No urinary complaints.? No fever or chills.? History of gastric ulcer in the past nephrolithiasis and hypertension.? No prior cardiac history.? CTA abdomen pelvis done without any acute findings.? CTA done was without contrast for the abdominal and pelvic part.? Labs stable UA negative troponin series negative.? EKG with no ST-T changes.? Muscle relaxer was added cyclobenzaprine.? Continue IV Dilaudid p.r.n. CTA abdomen and pelvis was performed which was unremarkable. It is suspected that pain is mostly coming from his spine. Pain completely resolved the next day of admission with conservative management. He was advised to seek his primary care for further evaluation of this pain which has been ongoing for several years now with MRI of thoracolumbar spine. He is agreeable with the plan. Will keep him on cyclobenzaprine p.r.n. now He did have chest pain during this process which was evaluated with EKG which did not show any acute ST-T changes. Troponin evaluation was negative and severe troponin remained negative. Cardiology was consulted and did not suspect her is chest pain related to cardiac etiology however advised stress test which will be arranged as an outpatient basis. Time Spent with Patient Time attestation: Total time spent providing and/or coordinating discharge services: 35 minutes Exam Narrative: GENERAL: Well-appearing, well-nourished, appears to be in pain. HEAD: Normocephalic, atraumatic. EYES: PERRLA and EOMI. ENT: Nares clear.? Mucous membranes moist. NECK: Supple. CHEST: Clear to auscultation.? No respiratory distress. HEART: Regular rate and rhythm.? ? Equal radial and DP pulses.. ABDOMEN: Soft, nontender EXTREMITIES: Normal range of motion.? No edema. SKIN: Warm, dry, no rash. NEURO: No focal deficits.? Alert and oriented x3. PSYCH: Normal mood and affect. DS: Data Data Completed and Pending Labs on day of discharge: Labs from last 24 hours 09/25/23 09/24/23 04:27 16:34 WBC 5.1 RBC 4.86 Hgb 14.0 Hct 42.6 MCV 87.7 MCH 28.8 MCHC 32.9 RDW 13.1 Plt Count 165 MPV 9.5 Immature Gran % (Auto) 0.2 Neut % (Auto) 62.3 Lymph % (Auto) 22.7 [place] % (Auto) 8.3 Eos % (Auto) 5.9 H Baso % (Auto) 0.6 Lymph # (Auto) 1.15 [place] # (Auto) 0.4 Eos # (Auto) 0.3 Baso # (Auto) 0.0 Abs Immat Gran (auto) 0.01 Absolute Neuts (auto) 3.2 Absolute Nucleated RBC 0.0 Nucleated RBC % 0.0 Sodium 139 Potassium 3.9 Chloride 108 H Carbon Dioxide 26 Anion Gap 5 L BUN 12 Creatinine 1.00 Estim Creat Clear Calc 87 Estimated GFR > 60 Glucose 136 H Lactic Acid 1.7 Calcium 8.5 Magnesium 2.2 Total Bilirubin 0.7 AST 26 ALT 28 Alkaline Phosphatase 59 Total Protein 7.0 Albumin 3.5 Imaging Radiologist's impression: ITS I
== END 2023-09-25 13:04 | disposition home or self-care (01) ==
LOC: ANHED 06:40 → ANHIMU 10:33
PROVIDERS: Admitting Provider Internal Medicine; Emergency Provider Student in an Organized Health Care Education/Training Program; PCP Family Medicine; Visit Provider Internal Medicine
DX: R07.9 Chest pain, unspecified (principal); R10.9 Unspecified abdominal pain; R41.840 Attention and concentration deficit; K82.8 Other specified diseases of gallbladder; K76.0 Fatty (change of) liver, not elsewhere classified; K44.9 Diaphragmatic hernia without obstruction or gangrene; G89.29 Other chronic pain; R51.9 Headache, unspecified; I11.0 Hypertensive heart disease with heart failure; I50.32 Chronic diastolic (congestive) heart failure; G47.00 Insomnia, unspecified; H91.90 Unspecified hearing loss, unspecified ear; N20.0 Calculus of kidney; E66.9 Obesity, unspecified; G47.33 Obstructive sleep apnea (adult) (pediatric); R94.31 Abnormal electrocardiogram [ECG] [EKG]; Z99.89 Dependence on other enabling machines and devices; Z68.39 Body mass index [BMI] 39.0-39.9, adult; Z79.1 Long term (current) use of non-steroidal anti-inflammatories (NSAID); Z79.899 Other long term (current) drug therapy; Z87.11 Personal history of peptic ulcer disease; Z87.891 Personal history of nicotine dependence
CPT/HCPCS: 36415; 71275; 74174; 74177; 80053; 81003; 83605; 83690; 83735; 84484; 85025; 85610; 85730; 93005; 96361; 96374; 96375; 96376; 99285; A9270; C9113; G0378; J1170; J2270; J2405; J3360; J7030; Q9967

== ENCOUNTER 2024-02-07 01:35 | Day surgery (SDC) | payer OTHER, SELFPAY ==
[2024-01-30 11:02] VITALS: BMI 33.5
[2024-02-07 14:15] VITALS: BP 143/96; PULSE 96; RESP 20; TEMP 36.5; O2SAT 98
[2024-02-07] MEDS: LACTATED RINGERS 1,000 ML 150 ML IV CONT (14:26)
--- NOTE | 2024-02-07 14:44 | WPDANESEPPF ---
Anes - Initial Pre Proc Eval Procedure: Operation Date: 02/07/24 15:00 Proposed Procedures p Esophagogastroduodenoscopy - Samm Lang MD Date/Time: 02/07/24 14:44 Surgeon: Samm Lang MD Pre Op Diagnosis: Dyskinesia of esophagus Patient Data Age: 58 Gender: M Height: 1.73 m Weight: 102.4 kg Last Vital Signs Temp 97.7 F 02/07/24 14:15 Pulse 96 02/07/24 14:15 Resp 20 02/07/24 14:15 BP 143/96 H 02/07/24 14:15 Pulse Ox 98 02/07/24 14:15 O2 Del Method Room Air 02/07/24 14:15 Allergies Allergy/AdvReac Type Severity Reaction Status Date / Time lisinopril Allergy Intermediate Hallucinati Verified 02/07/24 14:11 ng Home Medications Medication Instructions Recorded Confirmed Type multivitamin 1 tablet PO DAILY 04/09/21 01/31/24 History celecoxib 200 mg capsule 200 mg PO DAILY #30 caps 09/10/23 01/31/24 Rx cetirizine 10 mg chewable tablet 10 mg PO DAILY 09/24/23 01/31/24 History (Zyrtec) nebivolol 5 mg tablet (Bystolic) 5 mg PO QAM #90 tabs 11/13/23 02/07/24 Rx pantoprazole 40 mg tablet,delayed See Rx Instructions .Route 01/06/24 01/31/24 Rx release .COMPLEX #180 tabs dextroamphetamine-amphetamine 10 10 mg PO QNOON #30 tabs 01/30/24 01/31/24 Rx mg tablet dextroamphetamine-amphetamine ER 30 mg PO QAM #30 caps 01/30/24 02/07/24 Rx 30 mg 24hr capsule,extend release trazodone 100 mg tablet See Rx Instructions .Route 01/31/24 01/31/24 Rx .COMPLEX #90 tabs Patient hx anesthesia problems: none Family hx anesthesia problems: none Results Review: All pre-operative results and documents have been reviewed as part of the pre-operative evaluation. [facility] Past Medical History Medical History Acute blood loss anemia BMI 36.0-36.9,adult BMI 37.0-37.9, adult BMI 39.0-39.9,adult Chronic headaches Facial swelling Hearing loss HTN (hypertension) Insomnia Kidney stones, calcium oxalate Left knee pain Left sided abdominal pain Lesion of skin of scalp Medial meniscus, posterior horn derangement Neuroma digital nerve Numbness and tingling in both hands (~1998) Obesity GABRIELA on CPAP GABRIELA treated with BiPAP Plantar fasciitis Plantar fasciitis of left foot Rectal bleeding Small ear canal SVT (supraventricular tachycardia) Thoracic spondylosis (~2017) Surgical History Surgical History Carpal tunnel syndrome of left wrist Carpal tunnel syndrome of right wrist H/O cystoscopy with a placement of a stent H/O hernia repair umbilical and groin H/O right knee surgery Family History Family History Father Hypertension Family history of diabetes mellitus in first degree relative Family history of coronary artery disease Family history of elevated blood lipids Family history of congestive heart failure Diabetes mellitus Mother Cerebrovascular accident Family history of pancreatic cancer Family history of primary malignant neoplasm of liver Family history of thyroid disease Sibling Family history of thyroid disease Family history of elevated blood lipids Family history of diabetes mellitus in first degree relative Sibling Diabetes mellitus Sibling Diabetes mellitus Malignant neoplasm of prostate Other Family history of alcoholism Family history of arthritis Medial meniscus, posterior horn derangement Social History Social History Smoking packs per day: 1 Smoking cigarettes per day: 20.0 Years smoked: 20 Smoking pack-years: 20.00 Smoking status: Former smoker Tobacco type: cigarettes Smoking end date: 11/21/04 Alcohol intake: current Substance use: never Substance use type: does not use Lack of Transportation: No Lack of Food: Never True Current H
--- NOTE | 2024-02-07 15:04 | PM.HPGS ---
History of Present Illness History of Present Illness Consent: Risks, benefits, and alternatives have been discussed and questions answered. Patient agrees to proceed with procedure. Chief complaint: Dyskinesia of esophagus Narrative: Terry Christianson is a 58 year old male with more reflux and regurgitation, weight loss. Last EGD 2021 showed improvement of previous duodenal ulcer Review of Systems Review of Systems: All systems reviewed & are unremarkable except as noted in HPI and below PMFSH Past Medical History Medical History (Updated 02/07/24 @ 15:06 by Samm Lang MD) Acute blood loss anemia BMI 36.0-36.9,adult BMI 37.0-37.9, adult BMI 39.0-39.9,adult Chronic headaches Facial swelling GERD (gastroesophageal reflux disease) Hearing loss HTN (hypertension) Insomnia Kidney stones, calcium oxalate Left knee pain Left sided abdominal pain Lesion of skin of scalp Medial meniscus, posterior horn derangement Neuroma digital nerve Numbness and tingling in both hands (~1998) Obesity GABRIELA on CPAP GABRIELA treated with BiPAP Plantar fasciitis Plantar fasciitis of left foot Rectal bleeding Small ear canal SVT (supraventricular tachycardia) Thoracic spondylosis (~2017) Weight loss Surgical History Surgical History Carpal tunnel syndrome of left wrist Carpal tunnel syndrome of right wrist H/O cystoscopy with a placement of a stent H/O hernia repair umbilical and groin H/O right knee surgery Family History Family History Father Hypertension Family history of diabetes mellitus in first degree relative Family history of coronary artery disease Family history of elevated blood lipids Family history of congestive heart failure Diabetes mellitus Mother Cerebrovascular accident Family history of pancreatic cancer Family history of primary malignant neoplasm of liver Family history of thyroid disease Sibling Family history of thyroid disease Family history of elevated blood lipids Family history of diabetes mellitus in first degree relative Sibling Diabetes mellitus Sibling Diabetes mellitus Malignant neoplasm of prostate Other Family history of alcoholism Family history of arthritis Medial meniscus, posterior horn derangement Social History Social History Smoking packs per day: 1 Smoking cigarettes per day: 20.0 Years smoked: 20 Smoking pack-years: 20.00 Smoking status: Former smoker Tobacco type: cigarettes Smoking end date: 11/21/04 Alcohol intake: current Substance use: never Substance use type: does not use Lack of Transportation: No Lack of Food: Never True Current Housing: I Have Housing Concerned About Future Housing: No Difficulty Paying Gas/Electric Bills: No Difficulty Paying for Meds: No Currently Unemployed: No Education: Master's Degree or Higher Difficulty w/ Childcare or Family Care: No Living arrangements: with family Occupation/Education: occupation 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 Gender identity (if verbalized by the patient): Male Spiritual care concerns: No Meds Home Medications and Allergies Home Medications Medication Instructions Recorded Confirmed Type multivitamin 1 tablet PO DAILY 04/09/21 01/31/24 History celecoxib 200 mg capsule 200 mg PO DAILY #30 caps 09/10/23 01/31/24 Rx cetirizine 10 mg chewable tablet 10 mg PO DAILY 09/24/23 01/31/24 History (Zyrtec) nebivolol 5 mg tablet (Bystolic) 5 mg PO QAM #90 tabs 11/13/23 02/07/24 Rx pantoprazole 40 mg tablet,delayed See Rx Instructions .Route 01/06/24 01/31/24 Rx release .COMPLEX #180 tabs dextroamphetamine-amphetamine 10 10 mg PO QNOON #30 tabs 01/30/24 01/31/24 Rx mg tablet dextroamphetamine-amphetamine ER 30 mg PO QAM
[2024-02-07] MEDS: BENZOCAINE (*SP) 60 ML SPRAY CAN (HURRICAINE) 1 SPRAY MUCOUS MEM (15:12)
[2024-02-07 15:21] VITALS: BP 116/77; PULSE 82; RESP 25; O2SAT 95
[2024-02-07 15:31] VITALS: BP 110/86; PULSE 65; RESP 14; O2SAT 98
[2024-02-07 15:41] VITALS: BP 120/82; PULSE 74; RESP 20; O2SAT 98
== END 2024-02-07 15:49 | disposition home or self-care (01) ==
PROVIDERS: PCP Family Medicine; Visit Provider Internal Medicine Gastroenterology
PROC: 0DJ08ZZ Inspection of Upper Intestinal Tract, Via Natural or Artificial Opening Endoscopic (ICD-10-PCS; CPT 43235; principal; 2024-02-07 15:00)
DX: K21.9 Gastro-esophageal reflux disease without esophagitis (principal); I10 Essential (primary) hypertension; D62 Acute posthemorrhagic anemia; R51.9 Headache, unspecified; G47.00 Insomnia, unspecified; R63.4 Abnormal weight loss; G47.33 Obstructive sleep apnea (adult) (pediatric); E66.9 Obesity, unspecified; Z68.34 Body mass index [BMI] 34.0-34.9, adult; Z99.89 Dependence on other enabling machines and devices; Z98.890 Other specified postprocedural states; Z87.891 Personal history of nicotine dependence; Z82.49 Family history of ischemic heart disease and other diseases of the circulatory system; Z80.0 Family history of malignant neoplasm of digestive organs; Z80.42 Family history of malignant neoplasm of prostate
CPT/HCPCS: 43239; 88305; J2704; J7120

== ENCOUNTER 2024-02-16 07:25 | Outpatient (CLI) | payer OTHER, SELFPAY ==
--- NOTE | ~2024-02-16 | NM_ITS ---
EXAM: NM gastric emptying study DATE: 02/16/2024 08:22 CDT INDICATION: Abnormal weight loss. Vomiting. TECHNIQUE: A gastric emptying study was performed using the methodology of Paulina GALVEZ, et al. J Nucl Med 2007; 48:568-572. The patient was given a meal consisting of 2 scrambled eggs labeled with 1 mCi Tc-99m sulfur colloid, 2 slices of toast, two packages of jam, and approximately 120 mL of water. Th e patient vomited after a partial medial and therefore no images were taken. COMPARISON: None. FINDINGS: Incomplete study due to patient vomiting. Reviewed, dictated and finalized at location L.
== END 2024-02-16 07:26 ==
PROVIDERS: PCP Family Medicine; Visit Provider Internal Medicine Gastroenterology
DX: K22.4 Dyskinesia of esophagus (principal); K21.9 Gastro-esophageal reflux disease without esophagitis; R63.4 Abnormal weight loss
CPT/HCPCS: 78264; A9541

== ENCOUNTER 2024-02-20 18:04 | Emergency (ER) | payer OTHER, SELFPAY ==
[2024-02-20 18:14] VITALS: BP 112/85; PULSE 88; RESP 16; TEMP 36.4; O2SAT 99
[2024-02-20 18:20] LABS: Glucose Point of Care 485 mg/dl (65-105)
--- NOTE | 2024-02-20 18:54 | ED.GENADULT ---
HPI - General Adult General Chief complaint: Recheck/Abnormal Lab/Rx <Samra Gee PA-C - Last Filed: 02/20/24 19:16> Stated complaint: hyperglycemia <JOSEFINA Nowak Last Filed: 02/20/24 19:16> Time Seen by Provider: 02/20/24 18:54 <JOSEFINA Nowak Last Filed: 02/20/24 19:16> Focused HPI: Patient is a 58 y/o male who presents to the ED with c/o swallowing issues since December, states he is only able to keep down 30% of food/drinks. States he has lost at least 40 lbs since December. Has been seen at [facility], seen Dr. Baca. Has had esophageal motility testing, barium swallow testing in the last 1 week which he was unable to tolerate. Had EGD on 02/06 which was unremarkable, no structural abnormalities/strictures. Patient then f/u with his PCP today and had his BG checked in the office and noted to be > 500. He was then referred to the ED for further evaluation. Patient denies previous hx of DM. Does admit to polyuria, polydipsia for past 2-3 months. Reports appetite loss, intermittent nausea, intermittent upper abd pain. Denies fevers. GENERAL: Well-appearing, obese with BMI of 33.9, and in no acute distress. HEAD: Normocephalic, atraumatic. CHEST: Clear to auscultation. ?No respiratory distress. HEART: Regular rate and rhythm.? NEURO: ?Alert and oriented x3. Patient screened in triage and initial orders placed.? ?Additional care and disposition to be based upon?diagnostic testing and treatment. <JOSEFINA Nowak Last Filed: 02/20/24 19:16> Focused HPI: Patient is a 58 y/o male who presents to the ED with c/o swallowing issues since December, states he is only able to keep down 30% of food/drinks. States he has lost at least 40 lbs since December. Has been seen at [facility], seen Dr. Baca. Has had esophageal motility testing, barium swallow testing in the last 1 week which he was unable to tolerate. Had EGD on 02/06 which was unremarkable, no structural abnormalities/strictures. Patient then f/u with his PCP today and had his BG checked in the office and noted to be > 500. He was then referred to the ED for further evaluation. Patient denies previous hx of DM. Does admit to polyuria, polydipsia for past 2-3 months. Reports appetite loss, intermittent nausea, intermittent upper abd pain. Denies fevers. Patient admits family history of diabetes mellitus but denies any previous diagnosis of diabetes himself. GENERAL: Well-appearing, obese with BMI of 33.9, and in no acute distress. HEAD: Normocephalic, atraumatic. CHEST: Clear to auscultation. ?No respiratory distress. HEART: Regular rate and rhythm.? NEURO: ?Alert and oriented x3. Patient screened in triage and initial orders placed.? ?Additional care and disposition to be based upon?diagnostic testing and treatment. <Kermit Amezcua MD - Last Filed: 02/21/24 00:00> Source: patient <JOSEFINA Nowak Last Filed: 02/20/24 19:16> Mode of arrival: ambulatory <Samra Gee PA-C - Last Filed: 02/20/24 19:16> Limitations: no limitations <JOSEFINA Nowak Last Filed: 02/20/24 19:16> Related Data Home medications: Home Medications Medication Instructions Recorded Confirmed multivitamin 1 tablet PO DAILY 04/09/21 01/31/24 cetirizine 10 mg chewable tablet 10 mg PO DAILY 09/24/23 01/31/24 (Zyrte) <JOSEFINA Nowak Last Filed: 02/20/24 19:16> Allergies/adverse reactions: Allergies Allergy/AdvReac Type Severity Reaction Status Date / Time lisinopril Allergy Intermediate Hallucinati Verified 02/20/24 18:16 ng <Samra Gee PA-C - Last Filed: 02/20/24 19:16> Review of Systems Review of Systems: All systems are reviewed and are negative unless stated otherwise in the HPI. <Kermit Amezcua MD - Last Filed: 02/21/24 00:00> [facility] Past Medical History Medical History: Medical History (Reviewed 02/20/24 @ 23:05 by
[2024-02-20 19:19] LABS: Alveolar/Arterial O2 Gradient 36.2 mmHg; Base Excess ABG 0.6 mEq/l (+/-2.0); Carboxyhemoglobin 1.4 % THb (0-2.0); Fractional Inspired Oxygen 21 %; HCO3 ABG 23.8 mEq/l (22.0-26.0); Methemoglobin ABG 0.3 %THb (0-1.5); Oxygen Content ABG 20.8 %vol (16.0-22.0); Oxygen Saturation ABG 95.3 % (95.0-100.0); Oxyhemoglobin 93.2 % THb (90.0-100.0); PCO2 ABG 34.6 mmHg (35.0-45.0); PO2 ABG 72.1 mmHg (80.0-100.0); PO2 FiO2 Ratio Arterial Blood 3.43 %; Reduced Hemoglobin 5.1 %THb (0-5.0); Total Hemoglobin 15.9 g/dL (12.0-18.0); pH ABG 7.456 (7.350-7.450)
[2024-02-20 19:20] LABS: Modified Allen's Test Pass; Site Drawn RIGHT RADIAL
[2024-02-20 19:23] LABS: Basophils Percent Auto 0.8 % (0.2-1.2); Eosinophils Absolute Auto 0.2 K/mm3 (0-0.3); Eosinophils Percent Auto 2.9 % (0-4.4); Hematocrit 42.9 % (42.0-52.0); Hemoglobin 15.3 g/dL (14.0-18.0); Lymphocytes Absolute Auto 1.37 K/mm3 (0.9-3.2); Lymphocytes Percent Auto 26.8 % (18.3-44.2); Mean Corpuscular HGB Conc 35.7 g/dl (32-36); Mean Corpuscular Hemoglobin 29.7 pg (26-34); Mean Corpuscular Volume 83.1 fl (80-100); Mean Platelet Volume 11.1 fl (7.4-10.4); Monocytes Absolute Auto 0.4 K/mm3 (0.1-0.6); Monocytes Percent Auto 8.4 % (2.6-8.5); Neutrophils Absolute Auto 3.1 K/mm3 (1.3-6.7); Neutrophils Percent Auto 61.1 % (45.5-73.1); Platelet Count Result 179 k/mm3 (150-375); Red Blood Count 5.16 M/mm3 (4.6-6.20); Red Cell Distribution Width 12.9 % (11.5-14.5); White Blood Count 5.1 K/mm3 (4.5-10.0)
[2024-02-20 19:36] LABS: Alanine Aminotransferase 35 U/L (6-50); Albumin Level 4.5 g/dL (3.5-5.1); Alkaline Phosphatase 82 U/L (38-126); Anion Gap 9 mmol/L (4-12); Aspartate Amino Transferase 34 U/L (17-59); Bilirubin,Total 0.8 mg/dL (0.2-1.3); Blood Urea Nitrogen 17 mg/dL (9-20); Calcium 9.7 mg/dL (8.4-10.2); Carbon Dioxide 24 mmol/L (22-30); Chloride 97 mmol/L (98-107); Estimated CRCL calculation 88 ml/min; Estimated Glomerular Filt Rate > 60; Glucose 491 mg/dL (65-110); Magnesium 2.3 mg/dL (1.6-2.3); Phosphorus 3.1 mg/dL (2.5-4.5); Potassium 4.1 mmol/L (3.4-5.0); Sodium 130 mmol/L (137-145)
[2024-02-20 19:37] LABS: Lactic Acid Reflex 1.3 mmol/L (0.7-2.0); Lipase 136 U/L (23-300)
[2024-02-20 19:41] LABS: Beta-Hydroxybutyrate/Acetoacetate 1.42 mmol/L (0.02-0.27)
[2024-02-20 20:00] LABS: Hemoglobin A1C > 14.0 % (<5.7)
[2024-02-20 23:55] VITALS: BP 130/96; PULSE 90; RESP 16; O2SAT 100
== END 2024-02-20 23:55 | disposition home or self-care (01) ==
PROVIDERS: Physician Assistant; Emergency Provider Emergency Medicine; PCP Family Medicine
DX: R73.9 Hyperglycemia, unspecified (principal); D64.9 Anemia, unspecified; K21.9 Gastro-esophageal reflux disease without esophagitis; I10 Essential (primary) hypertension; Z87.442 Personal history of urinary calculi; G47.30 Sleep apnea, unspecified
CPT/HCPCS: 36415; 36600; 80053; 82010; 82375; 82805; 82948; 83036; 83050; 83605; 83690; 83735; 84100; 85025; 99283

== ENCOUNTER 2024-02-21 12:46 | Outpatient (CLI) | payer OTHER, SELFPAY ==
[2024-02-21 13:19] LABS: Hematocrit 43.6 % (42.0-52.0); Hemoglobin 15.2 g/dL (14.0-18.0); Mean Corpuscular HGB Conc 34.9 g/dl (32-36); Mean Corpuscular Hemoglobin 29.7 pg (26-34); Mean Corpuscular Volume 85.3 fl (80-100); Mean Platelet Volume 11.3 fl (7.4-10.4); Platelet Count Result 154 k/mm3 (150-375); Red Blood Count 5.11 M/mm3 (4.6-6.20); White Blood Count 4.4 K/mm3 (4.5-10.0)
[2024-02-21 13:52] LABS: Alanine Aminotransferase 36 U/L (6-50); Albumin Level 4.1 g/dL (3.5-5.1); Alkaline Phosphatase 89 U/L (38-126); Anion Gap 6 mmol/L (4-12); Aspartate Amino Transferase 36 U/L (17-59); Bilirubin,Total 0.8 mg/dL (0.2-1.3); Blood Urea Nitrogen 15 mg/dL (9-20); Calcium 9.1 mg/dL (8.4-10.2); Carbon Dioxide 25 mmol/L (22-30); Chloride 94 mmol/L (98-107); Estimated Glomerular Filt Rate > 60; Lipase 255 U/L (23-300); Potassium 4.5 mmol/L (3.4-5.0); Sodium 125 mmol/L (137-145)
[2024-02-21 14:13] LABS: Glucose 641 mg/dL (65-110)
[2024-02-24 11:50] LABS: Tissue Transglutaminase IgA Ab <1.0 U/mL (<15.0)
[2024-02-25 21:07] LABS: Tissue Transglutaminase IgG Ab <1.0 U/mL (<15.0)
== END 2024-02-21 12:47 | disposition home or self-care (01) ==
LOC: ANHLAB 12:47
PROVIDERS: PCP Family Medicine; Visit Provider Internal Medicine Gastroenterology
DX: K21.9 Gastro-esophageal reflux disease without esophagitis (principal); R63.4 Abnormal weight loss; Z68.33 Body mass index [BMI] 33.0-33.9, adult
CPT/HCPCS: 36415; 80053; 83690; 85027; 86364

== ENCOUNTER 2024-02-24 13:23 | Outpatient (CLI) | payer OTHER, SELFPAY ==
--- NOTE | ~2024-02-24 | CT_ITS ---
Non-contrast CT scan of the Abdomen and Pelvis Clinical indication: Diabetes Technique: 2.5 mm axial scans were obtained through the abdomen and pelvis without intravenous or or al contrast. Dose reduction technique was used on this scan by utilizing automated exposure control a nd iterative reconstruction technique. The dose-length product (DLP) was 826.06 mGy-cm. COMPARISON: 423 Findings: Images through the lung bases reveal no abnormalities. There is no evidence of renal or ureteral calculi. The kidneys and the ureters are nondilated. The liver, spleen, pancreas, gallbladder, and adrenals appear normal. There is no aortic aneurysm. There is no evidence of bowel obstruction. Images through the pelvis were performed. There is no evidence of ascites or lymphadenopathy. Urinary bladder unremarkable. No pelvic mass. Impression: No significant abnormality seen. Reviewed, dictated and finalized at [facility]. Impression: No significant abnormality seen.
== END 2024-02-24 13:24 | disposition home or self-care (01) ==
LOC: ANHIMG 13:24
PROVIDERS: PCP Family Medicine; Visit Provider Nurse Practitioner Family
DX: R10.9 Unspecified abdominal pain (principal); E11.9 Type 2 diabetes mellitus without complications; R11.2 Nausea with vomiting, unspecified; R63.4 Abnormal weight loss; Z68.33 Body mass index [BMI] 33.0-33.9, adult
CPT/HCPCS: 74176

== ENCOUNTER 2024-02-28 08:19 | Outpatient (CLI) | payer OTHER, SELFPAY ==
--- NOTE | ~2024-02-28 | MR_ITS ---
EXAMINATION: MR MRCP wo/w con/w 3D wo ind DATE: 02/28/2024 10:39 INDICATION: Dyskinesia of esophagus. TECHNIQUE: Magnetic resonance imaging (MRI) of the abdomen was performed without and with 19 mL Multi Corbin intravenous contrast. Sequences included coronal T2-weighted FS FSE, coronal T2-weighted FSE, a xial T1-weighted LAVA, coronal FS FIESTA, axial dual-echo T1-weighted SPGR, coronal lava-FLEX, sagitt al T2-weighted FSE, axial T2-weighted FSE, and axial DWI. Thick-slab T2-weighted FSE images were obta ined for magnetic resonance cholangiopancreatography (MRCP). Maximum intensity projection 3-D reconst ructions of the volumetric data were created by the technologist. Postcontrast sequences included cor onal LAVA-flex and time course of axial T1-weighted LAVA. COMPARISON: CT abdomen and pelvis 02/24/2024 FINDINGS: ABDOMEN MRI: There is diffuse hepatic steatosis. The gallbladder, spleen, pancreas, adrenal glands, a nd left kidney are normal. There are cysts in the right kidney measuring up to 8 mm. There are no di lated loops of bowel. There are no pathologically enlarged lymph nodes. There is no free intraperiton eal fluid. ABDOMEN MRCP: The common duct is normal and measures 3 mm. IMPRESSION: 1. Diffuse hepatic steatosis. Reviewed, dictated and finalized at location E.
== END 2024-02-28 08:20 | disposition home or self-care (01) ==
PROVIDERS: PCP Family Medicine; Referring Provider Nurse Practitioner Family; Visit Provider Internal Medicine Gastroenterology
DX: K76.0 Fatty (change of) liver, not elsewhere classified (principal); K22.4 Dyskinesia of esophagus; R07.9 Chest pain, unspecified
CPT/HCPCS: 74183; 76376; A9577

== ENCOUNTER 2024-03-27 14:45 | Outpatient (RCR) | payer OTHER, SELFPAY ==
[2024-03-27 14:45] VITALS: BMI 32.1
[2024-03-27 14:46] VITALS: BMI 32.1
== END 2024-06-04 09:13 | disposition home or self-care (01) ==
LOC: ANHDMC 14:45
PROVIDERS: PCP Family Medicine; Visit Provider Nurse Practitioner Family
DX: E11.9 Type 2 diabetes mellitus without complications (principal); Z71.3 Dietary counseling and surveillance; Z71.89 Other specified counseling
CPT/HCPCS: 97802; G0108

== ENCOUNTER 2024-10-09 09:33 | Outpatient (CLI) | payer OTHER, SELFPAY ==
--- NOTE | 2024-10-09 10:21 | ECG_ITS ---
Test Date: 2024-10-09 10:47:42 Measurements Intervals [place] Rate: 69 P: 32 WV: 133 QRS: -42 QRSD: 98 T: 13 QT: 386 QTc: 415 Interpretive Statements SINUS RHYTHM CONSIDER ANTERIOR INFARCT, AGE INDETERMINATE INFERIOR INFARCT, AGE INDETERMINATE BASELINE ARTIFACT- I, II, III, AVR, AVL, AVF ABNORMAL ECG No previous ECG available for comparison Electronically Signed On 10-09-2024 10:50:15 EAR MACHINE OPERATOR by Terence Hernandez D.O.
[2024-10-09 11:03] LABS: Add Urine Microscopic? NO; Appearance Urine Clear (Clear); Bilirubin Urine Negative (Negative); Blood Urine Negative (Negative); Color Urine Yellow (Yellow); Glucose Urine UA 3+ mg/dL (Negative); Ketones Urine Negative (Negative); Leukocyte Esterase Ur Negative LEU/UL (Negative); Nitrate Urine Negative (Negative); Protein Urine Negative (Negative); pH Urine 5.5 (5.0-9.0)
[2024-10-09 11:12] LABS: Partial Thromboplastin Time 26.8 Seconds (22.3-36.8); Prothrombin Time 13.3 Seconds (11.1-14.7)
[2024-10-09 11:50] LABS: Urine Cotinine NEGATIVE
[2024-10-09 12:13] LABS: MRSA (PCR) NOT DETECTED (NOT DETECTE)
== END 2024-10-09 09:34 | disposition home or self-care (01) ==
LOC: ANHSURGERY 09:39
PROVIDERS: PCP Family Medicine; Visit Provider Orthopaedic Surgery
DX: Z01.818 Encounter for other preprocedural examination (principal); M17.12 Unilateral primary osteoarthritis, left knee; R94.31 Abnormal electrocardiogram [ECG] [EKG]
CPT/HCPCS: 80307; 81003; 85610; 85730; 87641; 93005

== ENCOUNTER 2024-10-23 01:06 | Day surgery (SDC) | payer OTHER, SELFPAY ==
[2024-10-09 09:54] VITALS: BP 129/81; PULSE 71; RESP 16; TEMP 36.9; O2SAT 98; BMI 32.5
--- NOTE | 2024-10-09 10:14 | PC.NURSE ---
Report to the Outpatient Waiting Room, entrance under the green pavilion located off [facility], at time __08:30am on date _10/23/24 . Planned Procedure Time: _10:30am .? Time changes happen often and if your time is changed the preop area will call you the afternoon before. - You and your visitor will be asked to self-screen and do not enter if you have any COVID symptoms. Please call surgeon if you need to reschedule. - A mask is optional within the hospital at this time. Patients may have clear liquids (water, carbonated beverages, clear teas, apple juice) until 3 hours prior to surgery with a maximum of 20 ounces. - No food from midnight until time of surgery and no smoking. This includes no chewing gum, candy or mints. (0730AM) Take only the following medications with a SIP of water on the morning of surgery: Nebivolol and Tylenol if needed for pain DO NOT STOP ANY OF YOUR OTHER PRESCRIPTION MEDICATIONS PRIOR TO SURGERY EXCEPT THE FOLLOWING Medications to discontinue per physician ____Hold all NSAIDS per Dr. Balbuena instructions Date to take last dose____per Dr. Balbuena Please no make-up, nail hebrew, hairspray, perfume, deodorant, or body powder the day of surgery.? No jewelry (including any body piercings) or valuables the day of surgery, leave them at home.? Please take a shower or bath the night before, or the morning of, surgery with an antibacterial soap.? Wear comfortable, loose fitting clothing.? Hibicleanse scrub per Dr Donald. - Jewelry must be removed prior to entering the operating room.? Rings and piercings that are not removed may be cut off. - The hospital will not accept responsibility for valuables.? - Please leave all valuables, including medications, at home the day of surgery. If you are going home after surgery, a licensed sulky driver must drive you home.? - NO public transportation without another adult if you receive anesthesia. - We recommend that an adult stay with you for 24 hours following discharge. - We also recommend that you do not drive, make important decision, drink alcoholic beverages, or take any drugs that were not prescribed by your health care provider for at least 24 hours after your discharge time. Follow any additional instructions given to you from your surgeon. Telephone instructions given to __Patient and asked if any additional questions and then verbalized understanding. Patient advised to call surgeon office or pre surgery nurse liaison [phone] if any additional questions.
[2024-10-23] VITALS (11 sets, daily range): BP systolic 105–155; BP diastolic 64–86; PULSE 54–97; RESP 12–20; TEMP 35.7–36.1; O2SAT 95–100
--- NOTE | ~2024-10-23 | XR_ITS ---
EXAMINATION: [id number] DATE: 10/23/2024 13:32 INDICATION: Total left knee arthroplasty. Postop. TECHNIQUE: 2 views of left knee were obtained. COMPARISON: None. FINDINGS: There is a total left knee arthroplasty without patellar resurfacing in near-anatomic align ment. No fracture. There is gas in the knee joint and soft tissues, consistent with recent surgery. A nterior skin vida are noted. IMPRESSION: 1. Total left knee arthroplasty in near-anatomic alignment. Reviewed, dictated and finalized at location A. ESTATE INTERN
--- NOTE | 2024-10-23 09:36 | P.PNAN_ITS ---
Anes - Initial Pre Proc Eval Procedure: Operation Date: 10/23/24 10:30 Proposed Procedures p Left Total Knee Arthroplasty - Seth Balbuena MD Date/Time: 10/23/24 09:36 Surgeon: Seth Balbuena MD Pre Op Diagnosis: left knee djd Patient Data Age: 59 Gender: M Height: 1.73 m Weight: 97.1 kg Last Vital Signs Temp 36.9 C 10/09/24 09:54 Pulse 71 10/09/24 09:54 Resp 16 10/09/24 09:54 BP 129/81 10/09/24 09:54 Pulse Ox 98 10/09/24 09:54 O2 Del Method Room Air 10/09/24 09:54 Allergies Allergy/AdvReac Type Severity Reaction Status Date / Time lisinopril Allergy Intermediate Hallucinati Verified 10/15/24 10:16 ng celecoxib Allergy Unknown Hallucinati Unverified 10/15/24 11:09 ng Home Medications Medication Instructions Recorded Confirmed Type cetirizine 10 mg chewable tablet 10 mg PO DAILY 09/24/23 10/15/24 History (Zyrtec) pantoprazole 40 mg tablet,delayed See Rx Instructions .Route 01/06/24 10/15/24 Rx release .COMPLEX #180 tabs pen needle, diabetic 31 gauge x #100 ea 06/24/24 10/15/24 Rx 5/16 (BD Ultra-Fine Short Pen Needle) trazodone 100 mg tablet See Rx Instructions .Route 07/27/24 10/15/24 Rx .COMPLEX #90 tabs blood-glucose meter,continuous #1 ea 08/30/24 10/15/24 Rx (FreeStyle Ryanne 3 [place]) blood-glucose sensor (FreeStyle #1 ea 08/30/24 10/15/24 Rx Ryanne 3 Plus Sensor device) dextroamphetamine-amphetamine 10 10 mg PO QNOON #30 tabs 09/24/24 10/15/24 Rx mg tablet dextroamphetamine-amphetamine ER 30 mg PO QAM #30 caps 09/24/24 10/15/24 Rx 30 mg 24hr capsule,extend release empagliflozin 25 mg tablet 25 mg PO DAILY 10/09/24 10/15/24 History (Jardiance) chlorhexidine gluconate 4 % 1 applic topical ONCE #237 mL 10/12/24 10/15/24 Rx topical liquid (Hibiclens) nebivolol 5 mg tablet 5 mg PO DAILY #90 tabs 10/17/24 Rx Patient hx anesthesia problems: none Family hx anesthesia problems: none Results Review: All pre-operative results and documents have been reviewed as part of the pre- operative evaluation. [facility] Past Medical History Medical History Abdominal pain Acute blood loss anemia Acute GI bleeding BMI 32.0-32.9,adult BMI 33.0-33.9,adult BMI 36.0-36.9,adult BMI 37.0-37.9, adult BMI 39.0-39.9,adult Celiac artery stenosis Chest pain Chronic daily headache Chronic diastolic heart failure Chronic headaches Costovertebral angle pain Duodenal ulcer Elevated glucose Elevated lipase Facial swelling Fall Gastric ulcer GERD (gastroesophageal reflux disease) Hearing loss HTN (hypertension) Hypertensive lower esophageal sphincter Insomnia Insulin dependent diabetes mellitus Kidney stones, calcium oxalate Knee derangement Left flank pain Left knee pain Left sided abdominal pain Lesion of skin of scalp Leukocytosis (leucocytosis) LUQ abdominal pain Medial meniscus, posterior horn derangement Nausea and vomiting in adult Neuroma digital nerve New onset type 2 diabetes mellitus Numbness and tingling in both hands (~1998) Obesity GABRIELA on CPAP GABRIELA treated with BiPAP Plantar fasciitis Plantar fasciitis of left foot Rectal bleeding Small ear canal SVT (supraventricular tachycardia) Thoracic spondylosis (~2017) Weight loss Surgical History Surgical History Carpal tunnel syndrome of left wrist Carpal tunnel syndrome of right wrist H/O cystoscopy with a placement of a stent H/O hernia repair umbilical and groin H/O right knee surgery Family History Family History Father Hypertension Family history of diabetes mellitus in first degree relative Family history of coronary artery disease Family history of elevated blood lipids Family history of congestive heart failure Diabetes mellitus Mother Cerebrovascular accident Family history of pancreatic cancer Family history of primary malignant neoplasm of liver Family history of thyroid disease Sibling Family history of thyroid disease Family history of elevated blood lipids Family history of diabetes mellitus in first degree relative Sibling Diabetes mellitus Sibling Diabetes mellitus Malignant neoplasm of prostate Other Family history of alcoholism Family history of arthritis Medial meniscus, posterior horn derangement Social History Social History Smoking packs per day: 1 Smoking cigarettes per day: 20.0 Years smoked: 20 Smoking pack-years: 20.00 Smoking status: Former smoker Tobacco type: cigarettes Smoking end date: 11/21/04 Additional smoking assessment comments: Pt denies any nicotine use Alcohol intake: never Substance use: never Substance use type: marijuana Other substance usage details: gummies for sleep intermittent Lack of Transportation: No Lack of Food: Never True Current Housing: I Have Housing Concerned About Future Housing: No Difficulty Paying Gas/Electric Bills: No Difficulty Paying for Meds: No Currently Unemployed: No Education: Master's Degree or Higher Difficulty w/ Childcare or Family Care: No Living arrangements: with family Additional living arrangements comments: Occupation/Education: occupation 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 Informed Consent: The patient's anesthetic plan and its attendant risks and benefits were dis cussed with the patient/family/POA. Questions were solicited and answers provided to the satisfaction of the patient/family/POA.
[2024-10-23 09:43] LABS: Glucose Point of Care 91 mg/dl (65-105)
[2024-10-23] MEDS: ACETAMINOPHEN 500 MG TABLET 1000 MG PO (09:45)
[2024-10-23] MEDS: TRANEXAMIC ACID 1,000MG/ISO100 1,000 MG/100 ML BAG 200 MG IVPB (09:45)
[2024-10-23] MEDS: LACTATED RINGERS 1,000 ML 30 ML IV CONT ×2 (09:45→13:12)
--- NOTE | 2024-10-23 10:41 | WPDHPUPDATE1 ---
History and Physical Update Update Date/Time: 10/23/24 10:41 History and Physical has been reviewed, including an updated exam of the patient. There are NO changes in the patient's condition. Risks, benefits, and alternatives have been discussed and questions answered. Patient agrees to proceed with procedure.
[2024-10-23] MEDS: ceFAZolin 2 GM/D5W 50 ML 2 GM/50 ML BAG IVPB ×2 (10:59→17:43)
--- NOTE | 2024-10-23 10:59 | WPDANESPNB ---
Anes - Peripheral Nerve Block Date/Time: 10/23/24 10:59 I have discussed with the patient/family/POA the placement of a peripheral nerve block for post-operative pain management, including associated risks, benefits, complications, and side effects. Alternative methods of post-operative analgesia were detailed. Questions were solicited and answers provided to the satisfaction of the patient/family/POA. Time-Out: A pre-procedural Time-Out was completed immediately before starting the procedure and confirmed: Patient Identification, Site, Procedure, Patient Position and the Availability of Requisite Equipment. Clinical Indications: Acute post-operative pain management requested by the operative surgeon. Nerve Block Insertion Note Anes-nerve block: adductor canal left Patient position: supine Skin prep: chlorhexidine Needle: 22 gauge, stimulating, insulated echogenic needle. Needle length: 80 mm Technique: ultrasound Injectate: bupivacaine 0.5% with epi 5 mcg/ml (30cc - no epi) Observations: tolerated well Complications: none Procedure start time:: 1051 Procedure end time:: 105
[2024-10-23] MEDS: SODIUM CHLORIDE 0.9% IV 38.7 ML, MORPHINE SULFATE INJ (*CRX) 2 MG, ROPivacaine HCL 1% 2... INFILTRATE (11:36)
[2024-10-23] MEDS: GENTAMICIN BONE CEMENT REFOBACIN 1 EACH TOPICAL (12:09)
[2024-10-23] MEDS: TRANEXAMIC ACID 1,000 MG/10 ML AMPUL 1000 MG IV PUSH (12:26)
--- NOTE | 2024-10-23 13:10 | W.PM.PROC2 ---
Procedure Note - Detailed Date of Procedure 10/23/24 Pre-op Diagnosis left knee djd Post-op Diagnosis Same Procedure Performed L TKA Surgeon Seth Balbuena MD Anesthesia General Description of Procedure THE LEFT KNEE WAS PREPPED AND DRAPED IN THE STERILE FASHION. THERE WAS A 10 DEGREE FLEXION CONTRACTURE. A MIDLINE SKIN INCISION WAS MADE. A MEDIAL PARAPATELLAR ARTHROTOMY WAS MADE. THE PATELLA WAS EVERTED. THERE WAS TRICOMPARTMENT DJD. THERE WAS MINIMAL PATELLA DJD. AN INTRAMEDULLARY ABILIO WAS PLACED IN THE FEMUR. A DISTAL FEMORAL CUT WAS MADE IN 5 DEGREES OF VALGUS REMOVING APPROXIMATELY 9 MM OF BONE FROM THE DISTAL FEMUR. THE FEMUR WAS SIZED TO 67.5. A 67.5 FEMORAL CUTTING BLOCK WAS PLACED IN 3 DEGREES OF EXTERNAL ROTATION AND IN ALIGNMENT WITH ALIS'S LINE AND THE TRANSEPICONDYLAR AXIS. ANTERIOR POSTERIOR AND CHAMFER CUTS WERE MADE. THE CUTS WERE EXCELLENT. NEXT AN INTRAMEDULLARY CUTTING GUIDE WAS PLACED IN THE TIBIA. A TRANS TIBIAL CUT WAS MADE ALONG THE LONG AXIS OF THE TIBIA. APPROXIMATELY 10 MM OF BONE WAS REMOVED FROM THE HIGH SIDE OF THE TIBIA. THE TIBIA WAS THEN PLANED TO A SMOOTH SURFACE. POSTERIOR FEMORAL OSTEOPHYTES WERE REMOVED FROM THE FEMORAL CONDYLES. A 75 TIBIAL TRIAL WAS PLACED IN ALIGNMENT WITH THE 1/3 MEDIAL ASPECT OF THE TIBIAL TUBERCLE. THEN A 67.5 FEMORAL TRIAL COMPONENT WAS PLACED. BOTH HAD EXCELLENT FITS. EVENTUALLY A 10 MM POLYETHYLENE TRIAL COMPONENT WAS PLACED. THE KNEE WAS TAKEN THROUGH A RANGE OF MOTION. THE KNEE CAME OUT TO FULL EXTENSION. THERE WAS NO ABNORMAL TILT TO THE PATELLA. THERE WAS GOOD A/P AND VARUS/VALGUS STABILITY. THERE WAS NO EXCESSIVE ROLL BACK WITH FLEXION. THE TRIAL COMPONENTS WERE REMOVED. THEN A 67.5 FEMORAL COMPONENT AND 75 TIBIAL COMPONENT WITH A 10 POLYETHYLENE COMPONENT WERE CEMENTED INTO PLACE. ONCE THE CEMENT WAS HARD THE KNEE WAS TAKEN THROUGH A ROM AGAIN AND FOUND TO BE STABLE WITH NO PATELLA TILT NO EXCESSIVE ROLL BACK WITH FLEXION AND GOOD STABILITY WITH COMPLETE AND FULL EXTENSION. THE KNEE WAS IRRIGATED WITH STERILE BETADINE AND WATER FOR ABOUT 3 MINUTES. THE BLEEDERS WERE CAUTERIZED. THE ARTHROTOMY WAS REPAIRED WITH NUMBER 1 VICRYL. THE SUB CUTANEOUS LAYER WITH 2-0 VICRYL AND THE SKIN WITH BISI. THE WOUND WAS WASHED AND A STERILE DRESSING WAS APPLIED. PATIENT WAS EXTUBATED. Estimated Blood Loss -150.0 Pathology None sent Complications No immediate complications Condition Stable Disposition PACU
[2024-10-23] MEDS: fentaNYL CITRATE INJ (*CRX) 100 MCG/2 ML VIAL 25 MCG IV PUSH ×6 (13:34→14:14)
--- NOTE | 2024-10-23 14:45 | PC.NURSE ---
This patient, Terry Christianson, was admitted to Medical Room 346-01. Patient/family oriented to hospital policies and general routines including ID bracelet, bed and alarms, visiting hours, pain management, procedures, bathroom and other care routines, personal items, smoking policy, room service/diet, and visiting hours. Information on how to activate the Rapid Response Team has been discussed. Patient/Family are encouraged to report perceived risks to care and to ask questions if they do not understand what they are told or what they should do.
[2024-10-23] MEDS: oxyCODONE/ACETAMINOPHEN (*CRX) 5-325 MG TABLET 1 TABLET PO (14:55)
[2024-10-23] MEDS: SENNA/DOCUSATE SODIUM TABLET 2 TAB PO (16:19)
[2024-10-23] MEDS: diazePAM (*CRX) 5 MG TABLET PO (16:19)
[2024-10-23] MEDS: KETOROLAC 15 MG/ML VIAL (*BKC) IV PUSH (17:43)
[2024-10-23] MEDS: HYDROcodone/acetaminophen (*CRX) 5-325 MG TABLET 1 TAB PO (17:43)
[2024-10-23] MEDS: traZODone HCL 50 MG TABLET 200 MG BY MOUTH (20:38)
[2024-10-23] MEDS: HYDROcodone/acetaminophen (*CRX) 10-325 MG TABLET 1 TAB PO (20:38)
[2024-10-23] MEDS: FAMOTIDINE 20 MG TABLET PO (20:39)
[2024-10-23] MEDS: ASPIRIN 325 MG ENTERIC TABLET PO (20:39)
[2024-10-24] MEDS: KETOROLAC 15 MG/ML VIAL (*BKC) IV PUSH ×3 (00:35→12:50)
[2024-10-24] MEDS: diazePAM (*CRX) 5 MG TABLET PO ×2 (00:35→08:46)
[2024-10-24 02:35] VITALS: BP 120/73; PULSE 65; RESP 18; TEMP 36.2; O2SAT 96
[2024-10-24 04:09] VITALS: BP 116/66; PULSE 56; RESP 20; TEMP 36.2; O2SAT 98
[2024-10-24] MEDS: ceFAZolin 2 GM/D5W 50 ML 2 GM/50 ML BAG IVPB ×2 (04:21→12:50)
[2024-10-24 05:50] LABS: Basophils Percent Auto 0.2 % (0.2-1.2); Eosinophils Absolute Auto 0.1 K/mm3 (0-0.3); Eosinophils Percent Auto 1.5 % (0-4.4); Hematocrit 40.4 % (42.0-52.0); Hemoglobin 13.7 g/dL (14.0-18.0); Immature Granulocyte Absolute 0.04 K/mm3 (0.00-0.031); Immature Granulocyte Percent A 0.4 % (0-0.5); Lymphocytes Absolute Auto 1.35 K/mm3 (0.9-3.2); Lymphocytes Percent Auto 14.2 % (18.3-44.2); Mean Corpuscular HGB Conc 33.9 g/dl (32-36); Mean Corpuscular Hemoglobin 30.9 pg (26-34); Mean Platelet Volume 9.9 fl (7.4-10.4); Monocytes Absolute Auto 0.9 K/mm3 (0.1-0.6); Monocytes Percent Auto 9.3 % (2.6-8.5); Neutrophils Absolute Auto 7.1 K/mm3 (1.3-6.7); Neutrophils Percent Auto 74.4 % (45.5-73.1); Platelet Count Result 145 k/mm3 (150-375); Red Blood Count 4.44 M/mm3 (4.6-6.20); Red Cell Distribution Width 12.6 % (11.5-14.5); White Blood Count 9.5 K/mm3 (4.5-10.0)
[2024-10-24 06:02] LABS: Anion Gap 3 mmol/L (4-12); Blood Urea Nitrogen 19 mg/dL (9-20); Calcium 8.7 mg/dL (8.4-10.2); Carbon Dioxide 26 mmol/L (22-30); Chloride 107 mmol/L (98-107); Estimated CRCL calculation 78 ml/min; Estimated Glomerular Filt Rate > 60; Glucose 123 mg/dL (65-110); Sodium 136 mmol/L (137-145)
[2024-10-24 08:09] VITALS: BP 118/68; PULSE 68; RESP 18; TEMP 36.4; O2SAT 98
[2024-10-24] MEDS: EMPAGLIFLOZIN 25 MG TABLET PO (08:45)
[2024-10-24] MEDS: SENNA/DOCUSATE SODIUM TABLET 2 TAB PO (08:45)
[2024-10-24] MEDS: ASPIRIN 325 MG ENTERIC TABLET PO (08:45)
[2024-10-24] MEDS: polyethylene glycoL 3350 17 GM POWD.PACK PO (08:46)
[2024-10-24] MEDS: FAMOTIDINE 20 MG TABLET PO (08:46)
[2024-10-24] MEDS: HYDROcodone/acetaminophen (*CRX) 5-325 MG TABLET 1 TAB PO (12:50)
--- NOTE | 2024-10-24 13:21 | PC.NURSE ---
RN called Dr. Balbuena as patient and are requesting to be discharged. No answer at this time.
--- NOTE | 2024-10-24 13:32 | WPDANESPN ---
Anes - Prog Note Post-Op Date/Time: 10/24/24 13:32 Cardiovascular status: normal Respiratory status: normal Airway patency: baseline Mental status: baseline Post-Op hydration status: normal Vital Signs: Last Vital Signs Temp 97.6 F 10/24/24 08:09 Pulse 68 10/24/24 08:09 Resp 18 10/24/24 08:09 BP 118/68 10/24/24 08:09 Pulse Ox 98 10/24/24 08:09 O2 Del Method Room Air 10/24/24 08:45 O2 Flow Rate 8 10/23/24 13:25 Pain Score (VAS): 0/10 I/O: Intake & Output 10/23/24 10/24/24 10/24/24 23:59 07:59 15:59 Intake Total 530 600 120 Balance 530 600 120 Laboratory Tests 10/24/24 05:31 10/24/24 05:31 10/24/24 05:31 WBC 9.5 RBC 4.44 L Hgb 13.7 L Hct 40.4 L MCV 91.0 MCH 30.9 MCHC 33.9 RDW 12.6 Plt Count 145 L MPV 9.9 Immature Gran % (Auto) 0.4 Neut % (Auto) 74.4 H Lymph % (Auto) 14.2 L [place] % (Auto) 9.3 H Eos % (Auto) 1.5 Baso % (Auto) 0.2 Lymph # (Auto) 1.35 [place] # (Auto) 0.9 H Eos # (Auto) 0.1 Baso # (Auto) 0.0 Abs Immat Gran (auto) 0.04 H Absolute Neuts (auto) 7.1 H Absolute Nucleated RBC 0.000 Nucleated RBC % 0.0 Sodium 136 L Potassium 4.0 Chloride 107 Carbon Dioxide 26 Anion Gap 3 L BUN 19 Creatinine 1.00 Estim Creat Clear Calc 78 Estimated GFR > 60 Glucose 123 H Calcium 8.7 Post-procedural complaints: none Patient Feedback: Patient satisfied with anesthetic care.
--- NOTE | 2024-10-24 13:38 | P.PNOP_ITS ---
Progress Note: A&P Assessment and Plan (1) Left knee DJD: Code(s): M17.12 - Unilateral primary osteoarthritis, left knee Status: Acute Assessment and Plan: POD 1 DOING WELL. OK TO DC HOME F/UN IN 3 WEEKS. Subjective Subjective Date/Time Seen: 10/24/24 13:38 Interval history: POD 1 DOING WELL. PAIN CONTROLLED, WALKING WELL WITH PT. NO CALF PAIN Exam Extrem: Other: VSS AFEBRILE DRESSING DRY NEG HOMENS SIGN, NV INTACT CALF SOFT NON TENDER, THIGH SOFT NON TENDER Objective Data Vital Signs Vital Signs: Vital Signs - 24 hr 10/23/24 13:40 10/23/24 13:55 10/23/24 14:10 Temperature Pulse Rate 71 87 60 Respiratory Rate 16 16 20 Blood Pressure 155/86 H 127/75 132/80 Pulse Oximetry 97 96 95 Oxygen Delivery Room Air Room Air Room Air 10/23/24 14:20 10/23/24 15:16 10/23/24 15:30 Temperature 36.1 C L Pulse Rate 54 L 65 Respiratory Rate 12 18 Blood Pressure 109/70 121/75 Pulse Oximetry 95 96 Oxygen Delivery Room Air Room Air 10/23/24 15:45 10/23/24 16:15 10/23/24 20:00 Temperature 36.1 C L 36.1 C L Pulse Rate 97 69 Respiratory Rate 18 18 Blood Pressure 114/70 107/64 Pulse Oximetry 97 97 Oxygen Delivery Room Air 10/23/24 22:18 10/24/24 07:41 10/24/24 04:09 Temperature 36.1 C L 36.2 C L Pulse Rate 63 56 L Respiratory Rate 16 20 Blood Pressure 108/66 116/66 Pulse Oximetry 95 98 Oxygen Delivery Room Air 10/24/24 02:35 10/24/24 08:28 10/24/24 08:45 Temperature 36.2 C L Pulse Rate 65 Respiratory Rate 18 Blood Pressure 120/73 Pulse Oximetry 96 Oxygen Delivery Room Air Room Air 10/24/24 08:09 Temperature 36.4 C Pulse Rate 68 Respiratory Rate 18 Blood Pressure 118/68 Pulse Oximetry 98 Oxygen Delivery Intake/Output Intake/Output: Intake & Output 10/21/24 10/22/24 10/23/24 10/24/24 23:59 23:59 23:59 23:59 Intake Total 980 720 Balance 980 720 Meds/Results Medications: Active Medications Generic Name Dose Route Start Last Admin Trade Name Freq PRN Reason Stop Dose Admin Acetaminophen 500 mg 10/23/24 14:24 Acetaminophen 500 Mg Tablet PO Q6H PRN Pain Rated 1-3 Hydrocodone Bitart/Acetaminophen 1 tab 10/23/24 16:20 10/24/24 12:50 Hydrocodone/Acetaminophen (*Crx) 5-325 Mg Tablet PO 1 tab Q4H PRN Administration Pain Rated 4-6 Hydrocodone Bitart/Acetaminophen 1 tab 10/23/24 16:22 10/23/24 20:38 Hydrocodone/Acetaminophen (*Crx) 10-325 Mg Tablet PO 1 tab Q6H PRN Administration Pain Rated 7-10 Aspirin 325 mg 10/23/24 21:00 10/24/24 08:45 Aspirin 325 Mg Enteric Tablet PO 325 mg Q12HR DIONY Administration Diazepam 5 mg 10/23/24 14:24 10/24/24 08:46 Diazepam (*Crx) 5 Mg Tablet PO 5 mg Q8H PRN Administration Spasms Diphenhydramine HCl 25 mg 10/23/24 14:24 Diphenhydramine Hcl Inj 50 Mg/Ml Vial IV PUSH Q6H PRN Itching Empagliflozin 25 mg 10/24/24 09:00 10/24/24 08:45 Empagliflozin 25 Mg Tablet PO 25 mg DAILY DIONY Administration Famotidine 20 mg 10/23/24 21:00 10/24/24 08:46 Famotidine 20 Mg Tablet PO 20 mg Q12HR DIONY Administration Hydromorphone HCl 1 mg 10/23/24 14:24 Hydromorphone Hcl Inj (*Crx) 1 Mg/Ml Syr IV PUSH Q2H PRN Breakthrough Pain Rated 7-10 or NPO Hydromorphone HCl 0.5 mg 10/23/24 14:24 Hydromorphone Hcl Inj (*Crx) 1 Mg/Ml Syr IV PUSH Q2H PRN Breakthrough Pain Rated 4-6 or NPO Hydroxyzine Pamoate 50 mg 10/23/24 16:09 Hydroxyzine Pamoate 25 Mg Capsule PO Q8HR PRN Anxiety Ibuprofen 800 mg in 200 mls @ 400 mls/hr 10/24/24 00:00 Caldolor 800 Mg/200 Ml IVPB Q6H PRN Breakthrough Pain Rated 1-3 or NPO Ketorolac Tromethamine 15 mg 10/23/24 18:00 10/24/24 12:50 Ketorolac 15 Mg/Ml Vial (*Bkc) IV PUSH 10/24/24 18:01 15 mg Q6HR DIONY Administration Naloxone HCl 0.1 mg 10/23/24 14:24 Naloxone Hcl 0.4 Mg/Ml Vial IV PUSH Q2M PRN Opiate Reversal Ondansetron HCl 4 mg 10/23/24 14:24 Ondansetron Inj 4 Mg/2 Ml Vial IV PUSH Q4H PRN Nausea And Vomiting Polyethylene Glycol 17 gm 10/24/24 09:00 10/24/24 08:46 Polyethylene Glycol 3350 17 Gm Powd.Pack PO 17 gm QAM DIONY Administration Senna/Docusate Sodium 2 tab 10/23/24 17:00 10/24/24 08:45 Senna/Docusate Sodium Tablet PO 2 tab BID DIONY Administration Trazodone HCl 200 mg 10/23/24 21:00 10/23/24 20:38 Trazodone Hcl 50 Mg Tablet BY MOUTH 200 mg HS DIONY Administration Radiology Results: ITS Impressions Knee X-Ray 10/23/24 13:33 IMPRESSION: 1. Total left knee arthroplasty in near-anatomic alignment. Labs Labs: Laboratory Results - last 24 hr 10/24/24 05:31 WBC 9.5 RBC 4.44 L Hgb 13.7 L Hct 40.4 L MCV 91.0 MCH 30.9 MCHC 33.9 RDW 12.6 Plt Count 145 L MPV 9.9 Immature Gran % (Auto) 0.4 Neut % (Auto) 74.4 H Lymph % (Auto) 14.2 L [place] % (Auto) 9.3 H Eos % (Auto) 1.5 Baso % (Auto) 0.2 Lymph # (Auto) 1.35 [place] # (Auto) 0.9 H Eos # (Auto) 0.1 Baso # (Auto) 0.0 Abs Immat Gran (auto) 0.04 H Absolute Neuts (auto) 7.1 H Absolute Nucleated RBC 0.000 Nucleated RBC % 0.0 Sodium 136 L Potassium 4.0 Chloride 107 Carbon Dioxide 26 Anion Gap 3 L BUN 19 Creatinine 1.00 Estim Creat Clear Calc 78 Estimated GFR > 60 Glucose 123 H Calcium 8.7
--- NOTE | 2024-10-24 13:45 | PM.DS ---
DS: Admitting Diagnosis Discharge Date 10/24/24 Admitting Diagnosis LEFT KNEE DJD DS: Discharge Diagnosis Discharge Diagnosis (1) Left knee DJD: Code(s): M17.12 - Unilateral primary osteoarthritis, left knee Status: Acute DS: Summary Hospital Course Reason for hospitalization: LEFT TKA Hospital Course: PATIENT WAS ADMITTED S/P TOTAL KNEE ARTHROPLASTY FOR POSTOPERATIVE MEDICAL MANAGEMENT, PAIN CONTROL AND MOBILIZATION WITH PHYSICAL AND OCCUPATIONAL THERAPY. THE PATIENT PROGRESSED WELL WITH PT/OT. LABS AND VITALS REMAINED STABLE AND PAIN WELL CONTROLLED. THE PATIENT HAS BEEN CLEARED TO BE DISCHARGED HOME. FOLLOW UP APPOINTMENT SCHEDULED. DISCHARGE INSTRUCTIONS DISCUSSED AT LENGTH WITH THE PATIENT. MEDICATIONS REVIEWED. Status at Discharge Cognitive/behavioral status at discharge: STABLE Time Spent with Patient Time attestation: Total time spent providing and/or coordinating discharge services: DS: Data Data Completed and Pending Labs on day of discharge: Labs from last 24 hours 10/24/24 05:31 WBC 9.5 RBC 4.44 L Hgb 13.7 L Hct 40.4 L MCV 91.0 MCH 30.9 MCHC 33.9 RDW 12.6 Plt Count 145 L MPV 9.9 Immature Gran % (Auto) 0.4 Neut % (Auto) 74.4 H Lymph % (Auto) 14.2 L [place] % (Auto) 9.3 H Eos % (Auto) 1.5 Baso % (Auto) 0.2 Lymph # (Auto) 1.35 [place] # (Auto) 0.9 H Eos # (Auto) 0.1 Baso # (Auto) 0.0 Abs Immat Gran (auto) 0.04 H Absolute Neuts (auto) 7.1 H Absolute Nucleated RBC 0.000 Nucleated RBC % 0.0 Sodium 136 L Potassium 4.0 Chloride 107 Carbon Dioxide 26 Anion Gap 3 L BUN 19 Creatinine 1.00 Estim Creat Clear Calc 78 Estimated GFR > 60 Glucose 123 H Calcium 8.7 Procedures/Treatments: LEFT TKA Discharge Plan Discharge Patient Disposition: Home Health Service Discharge Instructions: Per Care Coordination, patient to discharge with [facility] ([phone]) for PT/OT and jail. Agency will call to arrange initial visit. SETH BALBUENA M.D. [facility] [address] [place] [address] POST OPERATIVE DISCHARGE INSTRUCTIONS FOLLOWING TOTAL KNEE REPLACEMENT SURGERY ? Your dressing will be changed prior to your discharge. You will be sent home with one additional dressing to be changed on post op day 7 by the home health RN. Your vida will be removed on the 14th day after surgery and steri-strips will be placed. Please practice good hand hygiene and do not touch your incision in order to prevent infection. ? You may shower with your dressing but do not submerge in a bath tub. ? Do not drive or operate machinery until you are released by Dr. Balbuena. ? Do not walk without a walker for any reason until you are released by Dr. Balbuena. ? Continue to use your ice machine. Please use a towel or pillow case to protect your skin before applying your ice machine. ? Do NOT place a pillow under your knee. You may use a pillow from the calf down if needed. This will prevent a flexion contracture postoperatively. ? You may begin use of your CPM machine at home if you have been given one pre-operatively. DO NOT USE WHILE YOU ARE SLEEPING. ? Your first post op appointment was sent to you via mail preoperatively. If you have any questions or are unable to make your appointment, please contact our office for scheduling questions. ? Your medications have been sent to your pharmacy. You have been sent home with pain medication. We have also sent you with a stool softener as narcotics can cause constipation. Please keep this in mind during your postoperative recovery. If you are not experiencing regular bowel movements, please contact our office for further instruction. ? Please contact our office with any questions/concerns regarding your knee at [phone]. TAKE 2 ADULT STRENGTH ASPIRIN (325 MG) EACH DAY FOR 3 WEEKS TO PREVENT BLOOD CLOTS Patient Instructions: Antibiotic Form Stand Alone Forms: General Discharge Information Follow-up/Referrals: Seth Balbuena MD [Physician] - Discharge Medications: New hydrocodone-acetaminophen 5-325 mg tablet 1 tablet PO Q8H PRN (Reason: pain) Qty: 40 0RF Continued (DME) FreeStyle Ryanne 3 Plus Sensor Device See Rx Instructions .Route Qty: 1 5RF Rx Instructions: As directed (DME) FreeStyle Ryanne 3 [place] Misc See Rx Instructions .Route Qty: 1 5RF Rx Instructions: As directed Jardiance 25 mg tablet 25 mg PO DAILY cetirizine [Zyrtec] 10 mg Tablet,Chewable 10 mg PO DAILY pantoprazole 40 mg tablet,delayed release (DR/EC) See Rx Instructions .ROUTE .COMPLEX Qty: 180 3RF Dose Instruction: TAKE 1 TABLET BY MOUTH TWICE A DAY Rx Instructions: TAKE 1 TABLET BY MOUTH TWICE A DAY (DME) pen needle, diabetic [BD Ultra-Fine Short Pen Needle] 31 gauge x 5/16 needle See Rx Instructions .Route Qty: 100 0RF Rx Instructions: with bedtime insulin trazodone 100 mg tablet See Rx Instructions .ROUTE .COMPLEX Qty: 90 1RF Dose Instruction: 200 MG ORALLY BEDTIME Rx Instructions: 200 MG ORALLY BEDTIME dextroamphetamine-amphetamine 10 mg tablet 10 mg PO QNOON Qty: 30 0RF Rx Instructions: take 1 at noon dextroamphetamine-amphetamine 30 mg capsule,extended release 24hr 30 mg PO QAM Qty: 30 0RF nebivolol 5 mg tablet 5 mg PO DAILY Qty: 90 0RF
== END 2024-10-24 14:55 | disposition home health service (06) ==
LOC: ANHSURGERY 08:27 → ANH3MED 14:38
PROVIDERS: PCP Family Medicine; Visit Provider Orthopaedic Surgery
PROC: (CPT 27447; principal; 2024-10-23 10:30)
DX: M17.12 Unilateral primary osteoarthritis, left knee (principal); M25.762 Osteophyte, left knee; E11.9 Type 2 diabetes mellitus without complications; G47.33 Obstructive sleep apnea (adult) (pediatric); I11.0 Hypertensive heart disease with heart failure; I50.32 Chronic diastolic (congestive) heart failure; K21.9 Gastro-esophageal reflux disease without esophagitis; D62 Acute posthemorrhagic anemia; R51.9 Headache, unspecified; G47.00 Insomnia, unspecified; D72.829 Elevated white blood cell count, unspecified; I47.10 Supraventricular tachycardia, unspecified; M43.04 Spondylolysis, thoracic region; G89.18 Other acute postprocedural pain; F12.90 Cannabis use, unspecified, uncomplicated; E66.9 Obesity, unspecified; Z68.32 Body mass index [BMI] 32.0-32.9, adult; Z79.84 Long term (current) use of oral hypoglycemic drugs; Z79.4 Long term (current) use of insulin; Z99.89 Dependence on other enabling machines and devices; Z98.890 Other specified postprocedural states; Z96.651 Presence of right artificial knee joint; Z96.0 Presence of urogenital implants; Z87.891 Personal history of nicotine dependence; Z87.442 Personal history of urinary calculi; Z80.0 Family history of malignant neoplasm of digestive organs; Z80.42 Family history of malignant neoplasm of prostate; Z82.49 Family history of ischemic heart disease and other diseases of the circulatory system
CPT/HCPCS: 64447; 27447; 36415; 73560; 80048; 80307; 81003; 82948; 85025; 85610; 85730; 86850; 86900; 86901; 87641; 93005; 97110; 97161; 97165; 97530; A9270; C1713; C1776; J0171; J0690; J1100; J1171; J1596; J1885; J2003; J2250; J2270; J2371; J2405; J2704; J2795; J3010; J7120

== ENCOUNTER 2024-11-08 10:36 | Outpatient (CLI) | payer OTHER, SELFPAY ==
--- NOTE | ~2024-11-08 | US_ITS ---
EXAMINATION: US venous doppler [facility] DATE: 11/08/2024 11:37 INDICATION: Left lower limb pain, swelling and erythema TECHNIQUE: Grayscale ultrasound images without and with compression and Doppler ultrasound images of the left lower extremity veins were obtained. COMPARISON: None. FINDINGS: The visualized portions of left common femoral vein, profunda (deep) femoral vein, femoral vein, popl iteal vein, peroneal veins, posterior tibial veins, gastrocnemius vein and greater saphenous vein out flow are patent. Slightly deeper and posterior to the peroneal veins is a thrombosed noncompressible vessel at the mid left calf likely representing an intramuscular gastrocnemius or soleal vein branch. IMPRESSION: 1. Deep venous thrombosis within an intramuscular, likely gastrocnemius or soleal branch vein at the left calf. No other deep venous thrombosis in the left lower limb. Findings were discussed with Artur nurse for Dr. Balbuena 11:51 AM. Reviewed, dictated and finalized at location A. STICS ADMINISTRATOR IMPRESSION: 1. Deep venous thrombosis within an intramuscular, likely gastrocnemius or sole al branch vein at the left calf. No other deep venous thrombosis in the left lo wer limb. Findings were discussed with Becky huntley nurse for Dr. Balbuena 11:51 A M.
== END 2024-11-08 10:37 | disposition home or self-care (01) ==
PROVIDERS: PCP Family Medicine; Visit Provider Orthopaedic Surgery
DX: I82.492 Acute embolism and thrombosis of other specified deep vein of left lower extremity (principal); Z96.652 Presence of left artificial knee joint
CPT/HCPCS: 93971

== ENCOUNTER 2025-01-07 13:30 | Outpatient (RCR) | payer OTHER, SELFPAY ==
--- NOTE | 2024-11-29 14:44 | OPREHPOC ---
Outpatient Therapy Plan of Care This is a Multidisciplinary Plan of Care that may contain components documented by all disciplines (PT, OT, and ST.) PT Problem 1 PT Problem #1 Knowledge Deficit PT Goal 1 Goal / Goal Update Pt to be IND with issued HEP PT Problem 2 PT Problem #2 Pain PT Goal 1 Goal / Goal Update 1. Pt to report 75% return to prior level of function Target Visit 8 PT Problem 3 PT Problem #3 Impaired Range of Motion PT Goal 1 Goal / Goal Update 1. Pt to improve active knee flexion to 125 deg to improve stair navigation, 2. To improve knee extension to 0 deg to improve stride length Target Visit 8
--- NOTE | 2024-11-29 14:44 | PTOPEVAL1 ---
Assessment and note entered by Freedom Whitehead, PT, DPT Evaluation Information Assessment Status Evaluation Diagnosis L TKA Onset 10/23/24 Subjective Information Pt had a L TKA on 10/23/24. He states this knee is progressing better than his R knee progressed. He has been diligent about his exercises. Pt is very active at baseline, carries wood inside for his fireplace. Enjoys hiking. Would like to be able to kneel on his knees but is not sure if that is possible. Reported Pain Level Pain Score 2: Self Report Assessment PT Clinical Summary Pt presents to therapy today for his initial evaluation following a L TKA on 10/23/24. He is progressing well so far. He demonstrates active motion from 0 - 5 - 114 deg. His lack of terminal knee extension shortens his step and stride length . He also has compensations when ambulating on stairs d/t decreased knee flexion. Skilled therapy services are indicated to address the deficits noted above, to improve pain, and to return to prior level of function. Plan of Care Interventions Electrical Stimulation,Gait Training,Hot Pack/Cold Pack,Manual Therapy,Neuro Re-education,Patient/ Caregiver Education,Prosthetic Training PT Services Indicated Yes Treatment Frequency and 1-2x/wk for 8 visits Duration These treatments will address the objective and functional deficits as defined above. The patient will be advanced safely and appropriately in order for the patient to progress towards his/her prior level of function. Additional exercises will be introduced and as well as a comprehensive home exercise program upon discharge, if needed, ?to ensure carryover of functional gains achieved in the clinic. This treatment plan has been reviewed and agreement upon by the patient.
--- NOTE | 2024-12-19 10:36 | PCPTNOTE ---
Patient called & cancelled scheduled appointment this date due to having to work.
--- NOTE | 2025-01-03 10:46 | PCPTNOTE ---
Patient was cancelled 01/02/25 due to therapist out with illness.
--- NOTE | 2025-01-07 14:20 | OPREHPOC ---
Outpatient Therapy Plan of Care This is a Multidisciplinary Plan of Care that may contain components documented by all disciplines (PT, OT, and ST.) PT Problem 1 PT Problem #1 Knowledge Deficit PT Goal 1 Goal / Goal Update Pt to be IND with issued HEP Progress Met PT Problem 2 PT Problem #2 Pain PT Goal 1 Goal / Goal Update 1. Pt to report 75% return to prior level of function 01/07/25: 1. met Target Visit 8 Progress Met PT Problem 3 PT Problem #3 Impaired Range of Motion PT Goal 1 Goal / Goal Update 1. Pt to improve active knee flexion to 125 deg to improve stair navigation, 2. To improve knee extension to 0 deg to improve stride length 01/07/25: 1. progressing to 118 2. Progressing to 2 Target Visit 8
--- NOTE | 2025-01-07 14:22 | PTOPDC ---
Assessment and note entered by Freedom Whitehead, PT, DPT Evaluation Information Assessment Status Discharge Diagnosis L TKA Onset 10/23/24 Subjective Information Pt states it feels like his knee is coming along, he states he is biking or using his rower most days of the week. He states he feels much further along with this knee compared to his other. Reports stairs are still somewhat challenging in the morning. Reported Pain Level Pain Score 1: Self Report Assessment PT Clinical Summary Pt presents to therapy today for his progress report following 5 visits of skilled therapy following a L TKA on 10/23/24. He demonstrates active motion from 0 - 2 - 118 deg. His gait and stair navigation has improved. He has met or progressed well towards his therapy goals and no longer requires skilled services. He is be d/c'ed to his [facility] at this time. Plan of Care PT Services Indicated No
== END 2025-01-07 15:10 | disposition home or self-care (01) ==
LOC: ANHGOSHPT 13:30
PROVIDERS: PCP Family Medicine; Visit Provider Family Medicine
DX: Z47.1 Aftercare following joint replacement surgery (principal); Z96.652 Presence of left artificial knee joint
CPT/HCPCS: 97016; 97110; 97140; 97161; 97530